=== PATIENT | female | born 1950 | race Caucasian/White ===

== ENCOUNTER 2017-03-24 09:59 | Emergency (ER) | payer MEDICARE, OTHER, SELFPAY ==
[2017-03-24 11:09] VITALS: BP 118/70; PULSE 115; RESP 20; TEMP 38.2; O2SAT 95; BMI 31.6
[2017-03-24 11:19] LABS: UTC Influenza A Antigen Positive (Negative)
[2017-03-24 11:20] LABS: UTC Influenza B Antigen Negative (Negative)
--- NOTE | 2017-03-24 11:29 | HMH.EDUTC ---
[facility] [place] Disposition Clinical Impression: Influenza Disposition: Home, Self-Care Condition on Discharge: Good Instructions: Influenza Additional Instructions: ? Start Tamiflu today if you are going to take it. Discussed risk and possible benefits. ? Lots of rest ? Increase Fluids water, Gatorade, powerade, pedialyte,if /toddler/child ? Alternate Tylenol and / or ibuprofen as discussed for fever, aches, chills x 24 hours without medication for symptoms ? Follow up IMMEDIATELY for new or worsening Symptoms OR no noticeable improvement over the next 48-72 hours, 911 for difficulty or breathing ? You or your child area contagious until no fever, aches, chills for 24 hours with medication for symptoms Prescriptions: Dextromethorphan Polistirex [Delsym] 10 mg PO Q12H PRN #200 luann.er.12h PRN Reason: Cough Oseltamivir Phosphate [Tamiflu 75mg Capsule] 75 mg PO BID #10 capsule Referrals: Sukumar Luevano MD [Primary Care Provider] - Time of Disposition: 11:32 Medical Decision Making Vital Signs: 03/24/17 11:09 Temperature 100.7 F H Temperature Source Skin Pulse Rate [Right] 115 H Respiratory Rate 20 Blood Pressure [Right Arm] 118/70 Blood Pressure Mean [Right Arm] 86 Blood Pressure Source [Right Arm] Automatic Cuff Blood Pressure Position [Right Arm] Sitting 02 Sat by Pulse Oximetry 95 Oxygen Delivery Method Room Air - Lab Data Lab Results 03/24/17 11:18: Influenza Type A Ag Positive A, Influenza Type B Ag Negative - Mervin Inquiry Pt receiving controlled substance: No Mervin was queried for this patient: No [facility] [place] HPI - General Stated complaint: cold fever headache nausea Mode of Arrival: Ambulatory Source of Information: Patient Limitations: No Limitations Description of Symptoms (Recalled from Triage Doc. by RN): COUGH, CONGESTION BEGAN WEDNESDAY HEENT Symptoms (Recalled from RN notes): Yes Resp Symptoms (Recalled from RN notes): No Skin Symptoms (Recalled from RN notes): No MS Symptoms (Recalled from RN notes): No Functional Status (Recalled from RN notes): NO - History of Present Illness Provider Complaint: Patient state that she has been having flu like symptoms for about 2-3 days that got worse this morning when she began having a fever Onset (ago): day(s) (2-3) Radiation: non-radiation Severity: mild Severity scale (1-10): 2 Relieving factors: none Exacerbating factors: none Treatments prior to arrival: NSAID - Related Data Previous Rx's Medication Instructions Recorded Dextromethorphan Polistirex 10 mg PO Q12H PRN #200 luann.er.12h 03/24/17 [Delsym] Oseltamivir Phosphate [Tamiflu 75 mg PO BID #10 cap 03/24/17 75mg Capsule] Allergies Allergy/AdvReac Type Severity Reaction Status Date / Time naproxen [From ALEVE] Allergy Severe S-DIFF. Unverified 03/09/17 14:58 BREATHING - Worker's Comp Is this a Worker's Comp case?: No [facility] History - *Social History Alcohol Intake: never - Psychiatric History Expresses thoughts of harming self/others: None Suicide Plan Description: No Plan - Constitutional Reports chills, Reports fever(s) - ENT Reports nasal discharge - Respiratory Reports cough - Musculoskeletal Reports body aches Physical Exam - General General appearance: alert, in no apparent distress - Eye Eye exam: Present: normal appearance, PERRL, EOMI - ENT ENT exam: Present: normal exam, normal oropharynx, mucous membranes moist, TM's normal bilaterally, normal external ear exam - Respiratory Respiratory exam: Present: normal lung sounds bilaterally. Absent: respiratory distress - Cardiovascular Cardiovascular exam: Present: regular rate, normal rhythm. Absent: JVD - Neurological Exam Neurological exam: Present: alert, oriented X3
--- NOTE | 2017-03-24 11:32 | ED_ITS ---
[facility] [place] Clinical Impression: Influenza Disposition: Home, Self-Care Condition on Discharge: Good Instructions: Influenza Additional Instructions: ? Start Tamiflu today if you are going to take it. Discussed risk and possible benefits. ? Lots of rest ? Increase Fluids water, Gatorade, powerade, pedialyte,if /toddler/child ? Alternate Tylenol and / or ibuprofen as discussed for fever, aches, chills x 24 hours without medication for symptoms ? Follow up IMMEDIATELY for new or worsening Symptoms OR no noticeable improvement over the next 48-72 hours, 911 for difficulty or breathing ? You or your child area contagious until no fever, aches, chills for 24 hours with medication for symptoms Prescriptions: Dextromethorphan Polistirex [Delsym] 10 mg PO Q12H PRN #200 luann.er.12h PRN Reason: Cough Oseltamivir Phosphate [Tamiflu 75mg Capsule] 75 mg PO BID #10 capsule Referrals: Sukumar Luevano MD [Primary Care Provider] - Time of Disposition: 11:32 Medical Decision Making Vital Signs: 03/24/17 11:09 Temperature 100.7 F H Temperature Source Skin Pulse Rate [Right] 115 H Respiratory Rate 20 Blood Pressure [Right Arm] 118/70 Blood Pressure Mean [Right Arm] 86 Blood Pressure Source [Right Arm] Automatic Cuff Blood Pressure Position [Right Arm] Sitting 02 Sat by Pulse Oximetry 95 Oxygen Delivery Method Room Air - Lab Data Lab Results 03/24/17 11:18: Influenza Type A Ag Positive A, Influenza Type B Ag Negative - Mervin Inquiry Pt receiving controlled substance: No Mervin was queried for this patient: No [facility] [place] - General Stated complaint: cold fever headache nausea Mode of Arrival: Ambulatory Source of Information: Patient Limitations: No Limitations Description of Symptoms (Recalled from Triage Doc. by RN): COUGH, CONGESTION BEGAN WEDNESDAY HEENT Symptoms (Recalled from RN notes): Yes Resp Symptoms (Recalled from RN notes): No Skin Symptoms (Recalled from RN notes): No MS Symptoms (Recalled from RN notes): No Functional Status (Recalled from RN notes): NO - History of Present Illness Provider Complaint: Patient state that she has been having flu like symptoms for about 2-3 days that got worse this morning when she began having a fever Onset (ago): day(s) (2-3) Radiation: non-radiation Severity: mild Severity scale (1-10): 2 Relieving factors: none Exacerbating factors: none Treatments prior to arrival: NSAID - Related Data Previous Rx's Medication Instructions Recorded Dextromethorphan Polistirex 10 mg PO Q12H PRN #200 luann.er.12h 03/24/17 [Delsym] Oseltamivir Phosphate [Tamiflu 75 mg PO BID #10 cap 03/24/17 75mg Capsule] Allergies Allergy/AdvReac Type Severity Reaction Status Date / Time naproxen [From ALEVE] Allergy Severe S-DIFF. Unverified 03/09/17 14:58 BREATHING - Worker's Comp Is this a Worker's Comp case?: No [facility] History - *Social History Alcohol Intake: never - Psychiatric History Expresses thoughts of harming self/others: None Suicide Plan Description: No Plan - Constitutional Reports chills, Reports fever(s) - ENT Reports nasal discharge - Respiratory Reports cough - Musculoskeletal Reports body aches Physical Exam - General General appearanc
== END 2017-03-24 11:44 | disposition home or self-care (01) ==
PROVIDERS: Emergency Provider Nurse Practitioner; PCP Family Medicine
DX: J11.1 Influenza due to unidentified influenza virus with other respiratory manifestations (principal)
CPT/HCPCS: 87276; 87804; 99202

== ENCOUNTER → 2017-03-31 13:46 | Outpatient (POV) | payer MEDICARE, OTHER, SELFPAY | PROVIDERS: PCP Family Medicine | DX: Z00.00 Encounter for general adult medical examination without abnormal findings (principal) ==

== ENCOUNTER 2017-04-27 08:35 | Day surgery (SDC) | payer MEDICARE, OTHER, SELFPAY ==
[2017-04-26 13:19] VITALS: BMI 30.9
[2017-04-27 08:55] VITALS: BP 152/80; PULSE 75; RESP 18; TEMP 36.7; O2SAT 97
--- NOTE | 2017-04-27 09:23 | P.PN_ITS ---
[facility] Anesthesia Checklist - Patient Identification Patient Identification: Arm Band, Verbal (Name & ) - Structural Data Admitted From: Home Planned Operative Procedure/s: cysto Consent for Planned Operative Procedure(s) Verified: Yes Verified Documents: Surgical Consent - Additional verifications Patient : No Anesthesia Reactions: No Hx Blood Transfusions: No Blood Transfusion Reaction: No Cephalosporin Allergy: No Previous Colonoscopy: No - Cardiovascular Assessment Heart Sounds: S1 & S2 Pulse Strength: Baseline Pulse Rhythm: Regular - Airway Assessment C-Spine Mobility Assessed: Yes TMJ Mobility Assessed: Yes Dentition: Dentures-good fit - Neurological Assessment Level of Consciousness: Awake, Alert, Appropriate Hx Seizures: No Numbness or tingling in extremities: No - Anesthesia Plan Anesthesia Risk discussed: Yes ASA Class: II Anesthesia Type: MAC [facility] Anesthesia HX I have reviewed the patient's past medical history: Yes Medical History: Reports:: Gastroesophageal Reflux Disease(GERD) Denies:: Cancer, Diabetes Mellitus Type 1, Diabetes Mellitus Type 2, MRSA, Seizures Other Medical History: Reports: Glaucoma. Denies: Blood Transfusion Reaction Comment: hyperthyroid Laterality Cases: Left: Total Knee Replacement Other Surgeries: Yes: Hysterectomy-Total Amputation: No Fractures: No *Family Hx:: Cancer, Diabetes, Heart Attack, Hypertension, Thyroid Disorder
[2017-04-27 10:15] VITALS: BP 128/78; PULSE 81; RESP 20; O2SAT 93
[2017-04-27 10:30] VITALS: BP 141/80; PULSE 74; RESP 20; TEMP 36.6; O2SAT 95
--- NOTE | 2017-04-27 10:36 | HMH.OPNOTE ---
Date of procedure: 04/27/17 Pre-op Diagnosis:: Urinary frequency Post-op diagnosis:: other (With urethral stenosis) Procedure performed:: Cystoscopy with urethral dilation Surgeon:: Riaz Gibbons MD SAMPLE WASHER:: Sukumar Rosado Anesthesia: MAC Estimated blood loss (mL): 0 Clinical Note:: Patient with long history of urinary frequency. He has tried numerous medical therapies without seeing improvement of symptoms. She presents for cystoscopy under anesthesia. Operative findings:: For satisfactory sedation she was placed carefully in the dorsolithotomy position and the genital area prepped and draped in standard fashion. On exam she has a grade 2-3 cystocele. External genitalia was unremarkable. The 22 Turkmen cystoscope sheath was introduced. The entire bladder was inspected with both 30 and 70? lenses she had no evidence of bladder tumors. Ureteral orifices were situated within the cystocele. Clear urine was seen from each ureteral orifice. The ureter was snug on the 22 Turkmen cystoscopy sheath. Letter was drained and cystoscope removed. The ureter was calibrated up to 30 Turkmen with the Amando sounds. Xylocaine jelly was instilled. She was awakened and transferred to the postop area in stable condition Operative note:: As above Pathology: none sent Condition: stable Disposition: same day Specimens:: None Complications:: None
--- NOTE | 2017-04-27 10:41 | P.OP_ITS ---
Date of procedure: 04/27/17 Pre-op Diagnosis:: Urinary frequency Post-op diagnosis:: other (With urethral stenosis) Procedure performed:: Cystoscopy with urethral dilation Surgeon:: Riaz Gibbons MD PLANT PRODUCTION WORKER:: Sukumar Rosado Anesthesia: MAC Estimated blood loss (mL): 0 Clinical Note:: Patient with long history of urinary frequency. He has tried numerous medical therapies without seeing improvement of symptoms. She presents for cystoscopy under anesthesia. Operative findings:: For satisfactory sedation she was placed carefully in the dorsolithotomy position and the genital area prepped and draped in standard fashion. On exam she has a grade 2-3 cystocele. External genitalia was unremarkable. The 22 Qatari cystoscope sheath was introduced. The entire bladder was inspected with both 30 and 70? lenses she had no evidence of bladder tumors. Ureteral orifices were situated within the cystocele. Clear urine was seen from each ureteral orifice. The ureter was snug on the 22 Qatari cystoscopy sheath. Letter was drained and cystoscope removed. The ureter was calibrated up to 30 Qatari with the Amando sounds. Xylocaine jelly was instilled. She was awakened and transferred to the postop area in stable condition Operative note:: As above Pathology: none sent Condition: stable Disposition: same day Specimens:: None Complications:: None
[2017-04-27 10:45] VITALS: BP 151/70; PULSE 69; RESP 20; TEMP 36.6; O2SAT 95
[2017-04-27 11:00] VITALS: BP 158/85; PULSE 68; RESP 20; TEMP 36.6; O2SAT 96
== END 2017-04-27 10:15 | disposition home or self-care (01) ==
LOC: OR 08:36
PROVIDERS: PCP Family Medicine; Visit Provider Urology
PROC: 0TJB8ZZ Inspection of Bladder, Via Natural or Artificial Opening Endoscopic (ICD-10-PCS; CPT 52000; principal; 2017-04-27 10:00)
DX: N35.9 Urethral stricture, unspecified (principal)
CPT/HCPCS: 52281; 96374

== ENCOUNTER → 2018-05-04 12:57 | Outpatient (POV) | payer MEDICARE, OTHER, SELFPAY | DX: Z00.00 Encounter for general adult medical examination without abnormal findings (principal) ==

== ENCOUNTER → 2019-02-08 14:46 | Outpatient (POV) | payer MEDICARE, OTHER, SELFPAY | DX: Z00.00 Encounter for general adult medical examination without abnormal findings (principal) ==

== ENCOUNTER → 2019-02-14 06:57 | Outpatient (CLI) | payer MEDICARE, OTHER, SELFPAY ==
--- NOTE | 2019-02-14 | CA_ITS ---
APPROVED REPORT Exam: Pharmacologic Technologist: Opal Melissa Ht: 5 ft 6 in Wt: 192 lbs BSA: 1.97 m2 HR: 61 bpm BP: 149/57 mmHg Indications: Chest pain, Shortness of Breath Medical History Medications: Losartan,,,,, FeNOfibrate,,,,, Dexilant,,,,, Sertraline,,,,, AZopt,,,,, Xalatan,,,,, CombiGan eye drops,,,,, Stress Test Details Test: LEXISCAN HR Resting HR: 67 bpm Max Heart Rate (APMHR): 153 bpm Max HR Achieved: 106 bpm Target HR (85% APMHR): 130 bpm % of APMHR: 69 Recovery HR: 80 bpm BP Resting BP: 149.0/57.0 mmHg Max BP: 161.0/61.0 mmHg Recovery BP: 136.0/51.0 mmHg ECG Clinical Exercise duration: 04:52 min Highest Stage Achieved: Stress ECG Conclusion Resting ECG: Sinus rhythm Lexiscan portion completed. Symptoms: Headache at peak infusion, resolved in recovery. Arrhythmias/Ectopy: Occasional PVC ST-T Changes: Less than 1.[address] depression. Conclusion: Images to follow. Test Summary REST . . . . . . . Resting REST 02:04 . . 67 . 149/ 57 . . Stage 1 01:00 . . 93 . . . . Stage 2 01:00 . . 106 . 148/ 60 . . Stage 3 01:00 . . 98 . 160/ 67 . . Stage 4 01:00 . . 88 . 161/ 61 . . Stage 4 01:52 . . 87 . 161/ 61 . Stop exercise at 04:52 RECOVERY 01:00 . . 91 . 158/ 65 . . RECOVERY 02:00 . . 83 . 150/ 54 . . RECOVERY 03:00 . . 82 . 136/ 51 . . RECOVERY 03:07 . . 81 . 136/ 51 . . Electronically signed by : Edouard Shannon, 02/14/2019 21:43:34
--- NOTE | 2019-02-14 06:59 | NM_ITS ---
APPROVED REPORT Exam: Nuclear Stress Test Indication: Chest pain, SOB, Syncope, Fatigue, HTN, High cholesterol, Family history Patient Location: Outpatient Stress Tech: Opal Melissa NM Tech:Daphne Tapia, ARRT, RT (R)(N) Ht: 5 ft 6 in Wt: 192 lbs Bra Size: 40DD HR: 61 bpm BP: 149/57 mmHg BSA: 1.97 m2 BMI: 30.9 History: Chest pain, SOB, Syncope, Fatigue, HTN, High cholesterol, Family history Procedure: Patient received a 0.4 mg of intravenous Lexiscan, resting heart rate 61 bpm, resting blood pressure 149/57 mmHg, with Lexiscan maximum heart rate achived was 106 bpm which is Less than 85 % of the maximum predicted heart rate and blood pressure was 160/67 mmHg. With Lexiscan, patient denied any complaint of chest pain. Electrocardiogram Resting electrocardiogram showed sinus rhythm, with Lexiscan there is less than 1.[address] segment depression noted from the baseline EKG. The EKG portion of the Lexiscan Myoview is nondiagnostic. Cardiac Stress and Resting SPECT Images: Cardiac Stress and Resting SPECT images were obtained using technetium 99m Myoview 31.6 mCi stress and 10.92 mCi at rest. Gated SPECT with analysis of segmental wall motion and calculation of the ejection fraction also done. Cardiac stress and resting SPECT images show uniform myocardial activity without segmental perfusion abnormality, computer derived ejection fraction is over 65% with no regional wall motion abnormality, right ventricle is normal size and contractility. Conclusion: 1. The EKG portion of the Lexiscan Myoview is nondiagnostic. 2. No scintigraphic evidence of reversible ischemia seen, computer derived ejection fraction is over 65% with no regional wall motion abnormality, right ventricle is normal size and contractility. 3. Normal Lexiscan Myoview study. Electronically signed by : Edouard Shannon, 02/14/2019 21:45:24
--- NOTE | 2019-02-14 06:59 | CA_ITS ---
APPROVED REPORT Jewelry Department Supervisor: Chen Gates RVT Study Quality: Adequate Indications: htn Risk Factors Hypertension Hyperlipidemia Smoking Renal Artery Doppler Proximal (R) 218.5/ cm/sec Mid (R) 169.0/ cm/sec Distal (R) 140.6/ cm/sec Renal Aorta Ratio (R) 1.54 Segmental A. (R) 62.8/16.9 cm/sec RI: 0.73 Segmental A. Sup (R) 62.8/16.9 cm/sec Segmental A. Mid (R) 54.4/24.4 cm/sec Segmental A. Inf (R) 46.0/9.4 cm/sec Proximal (L) 105.7/ cm/sec Mid (L) 138.5/ cm/sec Distal (L) 113.1/ cm/sec Renal Aorta Ratio (L) 0.97 Segmental A. (L) 98.8/25.4 cm/sec RI: 0.74 Segmental A. Sup (L) 94.3/29.9 cm/sec Segmental A. Mid (L) 98.8/25.4 cm/sec Segmental A. Inf (L) 70.0/16.2 cm/sec Renal Measurements Kidney Size (R) 11.9x5.7 cm Cortical Thickness (R) 1.4 cm Kidney Size (L) 12.3x5.4 cm Cortical Thickness (L) 1.4 cm Findings S Conclusion Study suggests less than 60% stenosis of the right renal artery. Study suggests normal left renal artery. Electronically signed by : Gavin Enrique MD 02/15/2019 14:35:49
--- NOTE | 2019-02-14 06:59 | CA_ITS ---
APPROVED REPORT EXAM: Comprehensive 2D, Doppler, and color-flow Echocardiogram Parachutist/Combatant Diver Qualified: Chelle Angulo CRT Ht: 5 ft 6 in Wt: 192lbs BSA: 1.97 BP: 170/80 mmHg Indications: CP. PALP, FATIGUE, HTN, SOB, OBESITY, HLD, GERD 2D Dimensions LVOT 1.82 cm (M/F) 1.5-2.5 M-Mode Dimensions RVDd 2.20 cm (0.9-2.6) LVDd 4.35 cm (3.5-5.7) LVDs 2.99 cm (3.5-5.7) IVSd 1.25 cm (0.6-1.1) PWd 0.81 cm (0.6-1.1) EF (Teich) 59.40% FS 31.30% EDV (Teich) 85.40 mL ESV (Teich) 34.70 mL LV Diastology E/A Ratio 0.69 Mitral Valve MV A Velocity 93.00 (40-130 cm/s) Left Ventricle Left atrium is mildly enlarged, left ventricle is normal size, mild concentric left ventricular hypertrophy, visually estimated ejection fraction 55% with no regional wall motion abnormality, grade 1 diastolic dysfunction seen without tissue Doppler evidence of raise left atrial pressure. Right Ventricle Right atrium and right ventricle mildly enlarged with normal contractility. Aortic Valve Aortic valve is minimally thickened and fibrosed. There is no aortic stenosis aortic insufficiency. Mitral Valve Mitral valve is grossly normal, there is mild mitral regurgitation. Tricuspid Valve Tricuspid valve is grossly normal, there is mild tricuspid regurgitation. Calculated right ventricular systolic pressure is 46 mmHg which is consistent with moderately elevated right ventricular systolic pressure. Pulmonic Valve Pulmonic valve is poorly visualized. Great Vessels Aortic root is normal size. Pericardium No significant pericardial effusion noted. Conclusion 1. Mild biatrial enlargement, normal left ventricular size, mild concentric left ventricular hypertrophy, visually estimated ejection fraction 55% with no regional wall motion abnormality, grade 1 diastolic dysfunction seen without tissue Doppler evidence of raise left atrial pressure. 2. Mildly enlarged right ventricle with normal contractility. 3. Mild mitral and tricuspid regurgitation, calculated right ventricular systolic pressure is 46 mmHg consistent with moderately elevated right ventricular systolic pressure. 4. No significant pericardial effusion noted. Electronically signed by : Edouard Shannon, 02/14/2019 21:59:55
--- NOTE | 2019-02-14 07:22 | HMH.ITSHM ---
Current Home Medications as stated by this patient Lee Ann Coates or corporate sales representative. []SERTRALINE LOSARTAN FENOFIBRATE XALATAN DEXILANT AZOPT COMBIGAN EYE DROPS
== END ==
PROVIDERS: PCP Nurse Practitioner Family; Visit Provider Urology
DX: I10 Essential (primary) hypertension (principal); R00.2 Palpitations; R06.09 Other forms of dyspnea; R07.9 Chest pain, unspecified; R42 Dizziness and giddiness
CPT/HCPCS: 78452; 93017; 93306; 93976; A9502; J2785

== ENCOUNTER → 2019-03-01 11:28 | Outpatient (CLI) | payer MEDICARE, OTHER, SELFPAY ==
[2019-03-01 12:16] LABS: Basophils % 0.5 % (0.1-2.0); Eosinophils # 0.2 K/mm3 (0.0-0.4); Eosinophils % 2.2 % (0.1-12.0); Hemoglobin 13.7 g/dL (12.2-16.2); Lymphocytes # 2.8 K/mm3 (0.7-4.5); Lymphocytes % 40.5 % (10-50); Mean Corpuscular HGB Conc 31.1 g/dL (31.8-35.4); Mean Corpuscular Hemoglobin 26.8 pg (27.0-31.2); Mean Corpuscular Volume 86.3 fl (81-99); Mean Platelet Volume 9.4 fl (7.4-10.4); Monocytes # 0.4 K/mm3 (0.1-1.0); Monocytes % 6.3 % (1.7-9.3); Neutrophils # 3.4 K/mm3 (1.8-7.8); Neutrophils % 50.5 % (37.0-80.0); Platelet Count 335 K/mm3 (142-424); Red Cell Distribution Width 14.6 % (11.5-17.5); White Blood Count 6.8 K/mm3 (4.8-10.8)
[2019-03-01 13:19] LABS: Anion Gap 14.9 mEq/L (5-15); Blood Urea Nitrogen 15 mg/dL (7-18); Calcium 9.8 mg/dL (8.5-10.1); Carbon Dioxide 26 mmol/L (21.0-32.0); Chloride 104 mmol/L (98-107); Creatinine,Serum 0.79 mg/dL (0.55-1.02); Estimated Glomerular Filt Rate 73 ml/min (>60); GFR (African American) 88 ML/MIN (>60); Glucose 102 mg/dL (74-106); Potassium 4.9 mmoL/L (3.5-5.1); Sodium 140 mmol/L (136-145)
== END ==
PROVIDERS: Visit Provider Urology
DX: I10 Essential (primary) hypertension (principal); R00.2 Palpitations; R06.09 Other forms of dyspnea; R07.9 Chest pain, unspecified; R42 Dizziness and giddiness
CPT/HCPCS: 36415; 80048; 85025

== ENCOUNTER → 2019-03-17 10:35 | Outpatient (CLI) | payer MEDICARE, OTHER, SELFPAY ==
[2019-03-17 12:09] LABS: Anion Gap 15.3 mEq/L (5-15); Blood Urea Nitrogen 15 mg/dL (7-18); Calcium 9.6 mg/dL (8.5-10.1); Carbon Dioxide 26 mmol/L (21.0-32.0); Chloride 103 mmol/L (98-107); Creatinine,Serum 0.68 mg/dL (0.55-1.02); Estimated Glomerular Filt Rate 86 ml/min (>60); GFR (African American) 104 ML/MIN (>60); Glucose 93 mg/dL (74-106); Potassium 4.3 mmoL/L (3.5-5.1); Sodium 140 mmol/L (136-145)
== END ==
PROVIDERS: Visit Provider Physician Assistant
DX: I10 Essential (primary) hypertension (principal); R00.2 Palpitations; R06.09 Other forms of dyspnea; R07.9 Chest pain, unspecified
CPT/HCPCS: 36415; 80048

== ENCOUNTER → 2019-07-21 09:00 | Outpatient (CLI) | payer MEDICARE, OTHER, SELFPAY ==
--- NOTE | 2019-07-21 | CA_ITS ---
APPROVED REPORT Bilateral Lower Extremity Venous Study for DVT. Arson And Bomb Investigator: GILBERT Indications Lower Extremity Pain: Bilateral Lower Extremity Edema: Bilateral Hyperlipidemia, HTN Risk Factors Patient denies trauma. States her legs have been swelling and painful for a while. Vein Imaging CFV (R): compressive, spontaneous, phasic, augmentation FEM (R): compressive, spontaneous, phasic, augmentation POP (R): compressive, spontaneous, phasic, augmentation PTV (R): Compressible GSV (R): compressive, spontaneous, phasic, augmentation SSV (R): Compressible Peroneals (R):Compressible GAS (R): Compressible CFV (L): compressive, spontaneous, phasic, augmentation FEM (L): compressive, spontaneous, phasic, augmentation POP (L): compressive, spontaneous, phasic, augmentation PTV (L): Compressible GSV (L): compressive, spontaneous, phasic, augmentation SSV (L): Compressible Peroneals (L):Compressible GAS (L): Compressible Conclusion No evidence of DVT or superficial thrombophlebitis in the veins scanned of the right lower extremity. No evidence of DVT or superficial thrombophlebitis in the veins scanned of the left lower extremity. Electronically signed by : Gavin Enrique MD 07/21/2019 17:09:56
--- NOTE | 2019-07-21 09:50 | MR_ITS ---
PROCEDURE: MR HEAD/BRAIN WO CON CLINICAL INDICATION: FREQUENT HEADACHES, MEMORY LOSS Severe headache, memory loss COMPARISON: No exams were available for comparison TECHNIQUE: Routine multiplanar multi echo sequences are performed without gadolinium enhancement. FINDINGS: No midline shift, mass effect, intracranial hemorrhage, or hydrocephalus is evident. The cerebellopontine angles, cerebellum, and brainstem are unremarkable. There are scattered periventricular and subcortical T2 white matter hyperintensities which are nonspecific. No evidence of acute infarction. There is a partial empty sella as a normal variant. The optic chiasm, corpus callosum, and craniocervical junction have an unremarkable appearance. No mastoid effusion or sinus air-fluid level. IMPRESSION: 1. No acute intracranial findings. 2. Scattered periventricular and subcortical T2 white matter hyperintensities which may be related to ischemic gliotic change from microvascular disease. Differential diagnosis includes migraine headache or demyelinating process. Dictated by: Gavin Enrique MD 07/22/2019 11:39 Electronically signed by Gavin Enrique MD in [place] 07/22/2019 11:39
== END ==
PROVIDERS: PCP Nurse Practitioner Family; Visit Provider Nurse Practitioner Family
DX: I83.893 Varicose veins of bilateral lower extremities with other complications (principal); R51 Headache; R41.3 Other amnesia
CPT/HCPCS: 70551; 93970

== ENCOUNTER → 2019-09-11 10:20 | Outpatient (CLI) | payer MEDICARE, OTHER, SELFPAY ==
[2019-09-11 14:18] LABS: Coronavirus 19 IgG Antibody Negative (Negative); Coronavirus 19 IgM Antibody Negative (Negative)
== END ==
PROVIDERS: Visit Provider Surgery
DX: Z01.818 Encounter for other preprocedural examination (principal)
CPT/HCPCS: 36415; 86328

== ENCOUNTER 2019-09-12 06:31 | Day surgery (SDC) | payer MEDICARE, OTHER, SELFPAY ==
[2019-09-11 07:37] VITALS: BMI 31.9
[2019-09-12 07:04] VITALS: BP 133/70; PULSE 66; RESP 20; TEMP 36.2; O2SAT 95
--- NOTE | 2019-09-12 07:14 | SUR.PREOP ---
scope patch order by Kevin PRISON WARDEN applied behind right ear
--- NOTE | 2019-09-12 07:15 | P.PN_ITS ---
[facility] Anesthesia Checklist - Patient Identification Patient Identification: Arm Band, Verbal (Name & ) - Structural Data Admitted From: Home Planned Operative Procedure/s: egd Consent for Planned Operative Procedure(s) Verified: Yes Verified Documents: History and Physical - NPO Status Verified Time NPO: 00:00 - Chart Verification Results Verified: CBC, BMP - Additional verifications Patient : No Anesthesia Reactions: No Hx Blood Transfusions: No Blood Transfusion Reaction: No Cephalosporin Allergy: No Previous Colonoscopy: Yes - Cardiovascular Assessment Heart Sounds: S1 & S2 Pulse Strength: Baseline Pulse Rhythm: Regular Peripheral Edema: No - Airway Assessment C-Spine Mobility Assessed: Yes TMJ Mobility Assessed: Yes Dentition: Partials - Neurological Assessment Level of Consciousness: Awake, Alert, Appropriate Hx Seizures: No Numbness or tingling in extremities: No - Anesthesia Plan Anesthesia Risk discussed: Yes Anesthesia Plan: Verified ASA Class: II Anesthesia Type: MAC [facility] History I have reviewed the patient's past medical history: Yes Medical History: Reports:: Cancer (skin cancer), Gastroesophageal Reflux Disease(GERD), Hyperlipidemia, Hypertension, Palpitations Denies:: Diabetes Mellitus Type 1, Diabetes Mellitus Type 2, Internal Pacemaker, MRSA, Seizures *Have you ever received a pneumonia vaccine?: Yes *Have you received a flu vaccine this season?: Yes Other Medical History: Reports: Glaucoma. Denies: Blood Transfusion Reaction Anesthesia experience/problems:: none Laterality Cases: Left: Arthroscopy Knee, Total Knee Replacement, Bilateral: Other Other Surgeries: Yes: Colonoscopy, EGD, Hysterectomy-Total, Hysterectomy- Partial, Other. No: Pacemaker Amputation: No Fractures: No - *Social History Educational Level: Completed GED/General Educational Development Smoking Status: Former smoker Alcohol Intake: never Alcohol Intake Frequency:: other Substance Use Type: denies use *Occupational Status:: retired Housing: house Household Members: spouse *Travel in the last 8 weeks: None Family Hx:: Cancer, Coronary Artery Disease, Diabetes, Heart Attack, Hyperlipidemia, Hypertension, Stroke, Substance abuse, Alcoholism
[2019-09-12 07:30] VITALS: O2SAT 97
--- NOTE | 2019-09-12 07:52 | HMH.SCOPE ---
- Procedure: Date: 09/12/19 Procedure Performed:: Esophagogastroduodenoscopy with polypectomy by hot snare Indications:: Patient is a 69-year-old female. She has had numerous EGDs over many years. Interestingly she has had large polypoid lesion in the prepyloric location which have been removed and repeatedly revealed merely hyperplastic polyp interestingly. She has developed symptoms of gastric outlet obstruction and repeated EGDs have revealed recurrent polyps. She actually had been followed at some point by gastroenterology in [place]. It was felt that resection would not be optimal as she could develop recurrent polyps elsewhere which may be less easily accessible. Plan was for surveillance EGD to remove polyp prior to gastric outlet obstruction development. Performing Provider:: Isaac Golden MD Referring Provider:: None Sedation:: Propofol Procedure:: Patient was taken to endoscopy procedure room. She was positioned in a lateral decubitus position. Adequate intravenous sedation was achieved with anesthesia titration of propofol. Olympus endoscope was inserted via the oropharynx and advanced to the gastric lumen which was insufflated. In the prepyloric location there were 2 moderately large polypoid lesions noted. These were removed with hot cutting snare. This required retrieval using a Callaway net. Endoscope was reinserted. There was a smaller polypoid lesion in the prepyloric location which was removed with hot cutting snare and treated by suctioning. There was some irregular mucosa in the antrum. The endoscope was able to be advanced into the duodenum which appeared unremarkable. Endoscope was withdrawn. Findings:: Several large polypoid lesions in the prepyloric location with some irregular mucosa as well. Recommendations:: I will follow-up on histopathology. If benign may consider repeat EGD in 6 to 12 months. Complications:: None immediately apparent Estimated blood obtained (mL): 2
[2019-09-12 07:54] VITALS: BP 130/82; PULSE 75; RESP 16; TEMP 36.1; O2SAT 95
[2019-09-12 08:04] VITALS: BP 126/77; PULSE 77; RESP 16; TEMP 36.1; O2SAT 97
[2019-09-12 08:14] VITALS: BP 149/82; PULSE 66; RESP 18; TEMP 36.1; O2SAT 97
[2019-09-12 08:24] VITALS: BP 140/86; PULSE 70; RESP 16; TEMP 36.1; O2SAT 98
== END 2019-09-12 08:24 | disposition home or self-care (01) ==
LOC: OUTP 06:32
PROVIDERS: PCP Nurse Practitioner Family; Visit Provider Surgery
PROC: 0DJ08ZZ Inspection of Upper Intestinal Tract, Via Natural or Artificial Opening Endoscopic (ICD-10-PCS; CPT 43235; principal; 2019-09-12 07:30)
DX: K31.7 Polyp of stomach and duodenum (principal); Z87.19 Personal history of other diseases of the digestive system; Z85.828 Personal history of other malignant neoplasm of skin; K21.9 Gastro-esophageal reflux disease without esophagitis; I10 Essential (primary) hypertension; E78.5 Hyperlipidemia, unspecified; R00.2 Palpitations; Z96.653 Presence of artificial knee joint, bilateral; Z90.710 Acquired absence of both cervix and uterus; Z79.899 Other long term (current) drug therapy; Z82.3 Family history of stroke; Z82.49 Family history of ischemic heart disease and other diseases of the circulatory system; Z81.1 Family history of alcohol abuse and dependence
CPT/HCPCS: 43251; 88305; J2704

== ENCOUNTER → 2019-11-16 16:49 | Outpatient (CLI) | payer MEDICARE, OTHER, SELFPAY ==
[2019-11-18 18:31] LABS: Covid-19 Nasal PCR Sendout Lex Not Detected
== END ==
PROVIDERS: PCP Nurse Practitioner Family; Visit Provider Nurse Practitioner
DX: Z03.818 Encounter for observation for suspected exposure to other biological agents ruled out (principal)
CPT/HCPCS: U0004

== ENCOUNTER → 2019-12-07 12:40 | Outpatient (CLI) | payer MEDICARE, OTHER, SELFPAY ==
[2019-12-07 13:14] LABS: Basophils % 0.5 % (0.1-2.0); Eosinophils # 0.2 K/mm3 (0.0-0.4); Eosinophils % 2.7 % (0.1-12.0); Hematocrit 42.7 % (37.0-47.0); Hemoglobin 14.2 g/dL (12.2-16.2); Lymphocytes # 2.7 K/mm3 (0.7-4.5); Lymphocytes % 37.4 % (10-50); Mean Corpuscular HGB Conc 33.4 g/dL (31.8-35.4); Mean Corpuscular Hemoglobin 28.3 pg (27.0-31.2); Mean Corpuscular Volume 84.8 fl (81-99); Mean Platelet Volume 9.1 fl (7.4-10.4); Monocytes # 0.5 K/mm3 (0.1-1.0); Monocytes % 6.7 % (1.7-9.3); Neutrophils # 3.8 K/mm3 (1.8-7.8); Neutrophils % 52.7 % (37.0-80.0); Platelet Count 303 K/mm3 (142-424); Red Blood Count 5.03 M/mm3 (4.20-5.40); Red Cell Distribution Width 14.8 % (11.5-17.5); White Blood Count 7.2 K/mm3 (4.8-10.8)
[2019-12-07 14:56] LABS: Chloride 107 mmol/L (98-107); Sodium 140 mmol/L (136-145)
[2019-12-07 14:57] LABS: Potassium 4.7 mmoL/L (3.5-5.1)
[2019-12-07 15:00] LABS: Anion Gap 15.7 mEq/L (5-15); Blood Urea Nitrogen 23 mg/dl (7-17); Carbon Dioxide 22 mmol/L (22.0-30.0); Estimated Glomerular Filt Rate 62 ml/min (>60); GFR (African American) 75 ML/MIN (>60); Glucose 108 mg/dl (74-100)
[2019-12-07 15:16] LABS: Triiodothryronine (T3) Uptake 28 % (23.5-40.5)
[2019-12-07 15:18] LABS: Free Thyroxine Index 1.8 ug/dL (5.93-13.13); T4 (Thyroxine) 6.5 ug/dl (5.53-11.0)
[2019-12-07 15:31] LABS: Thyroid Stimulating Hormone 3.14 uIU/mL (0.465-4.68)
== END ==
PROVIDERS: Visit Provider Nurse Practitioner Family
DX: E78.2 Mixed hyperlipidemia (principal); I10 Essential (primary) hypertension; R06.00 Dyspnea, unspecified; R40.0 Somnolence
CPT/HCPCS: 36415; 80048; 84436; 84443; 84479; 85025

== ENCOUNTER → 2019-12-18 12:50 | Outpatient (CLI) | payer MEDICARE, OTHER, SELFPAY | PROVIDERS: PCP Nurse Practitioner Family; Visit Provider Nurse Practitioner Family | DX: R06.83 Snoring (principal); R40.0 Somnolence; G47.33 Obstructive sleep apnea (adult) (pediatric) | CPT/HCPCS: G0399 ==

== ENCOUNTER 2020-01-05 13:04 | Emergency (ER) | payer MEDICARE, OTHER, SELFPAY ==
[2020-01-05 13:06] VITALS: BP 136/76; PULSE 68; RESP 20; TEMP 36.6; O2SAT 99; BMI 31.9
--- NOTE | 2020-01-05 13:52 | HMH.EDUTC ---
[facility] [place] Clinical Impression: Bronchitis Disposition: Home, Self-Care Condition on Discharge: Good Instructions: DI for Acute Bronchitis Prescriptions: predniSONE [Prednisone 20mg Tab] 20 mg PO BID 5 Days #10 tab Transmission Status: Pending to [facility] Azithromycin [Z-Odell 250mg Tab] 250 mg PO DIRECTED #6 tab Transmission Status: Pending to [facility] Referrals: Gricelda Amaya APRN [Primary Care Provider] - Time of Disposition: 13:56 Medical Decision Making - Mervin Inquiry Pt receiving controlled substance: No Vital Signs: 01/05/20 13:06 Temperature 97.8 F Temperature Source Oral Pulse Rate [Left Radial] 68 Respiratory Rate 20 Blood Pressure [Right Arm] 136/76 Blood Pressure Mean [Right Arm] 96 Blood Pressure Source [Right Arm] Automatic Cuff Blood Pressure Position [Right Arm] Sitting 02 Sat by Pulse Oximetry 99 Oxygen Delivery Method Room Air [facility] [place] H[place] - General Stated complaint: cough weezing Time Seen by Provider: 01/05/20 13:52 Mode of Arrival: Ambulatory Source of Information: Patient Limitations: No Limitations Description of Symptoms (Recalled from Triage Doc. by RN): c/o coughing and sneezing for 2 weeks HEENT Symptoms (Recalled from RN notes): Yes Resp Symptoms (Recalled from RN notes): No Skin Symptoms (Recalled from RN notes): No MS Symptoms (Recalled from RN notes): No Functional Status (Recalled from RN notes): wnl - History of Present Illness Provider Complaint: Cough, congestion, wheezing X 3 weeks. States she gets this every year and thought it would just go away. No fever. Ears feel full and itchy. Nose is runny. Some drainage in throat. Productive cough. No vomiting or diarrhea. Onset (ago): week(s) (3) Location: chest Relieving factors: none Exacerbating factors: none Associated symptoms: cough Treatments prior to arrival: none - Related Data Home Medications Medication Instructions Recorded Confirmed Brimonidine Tartrate/Timolol 1 drp EYE-BOTH BID 04/26/17 01/05/20 [Combigan 0.2%-0.5% Eye Drops] Brinzolamide [Azopt] 10 ml OP TID 04/26/17 01/05/20 Latanoprost [Xalatan] 2.5 ml OP DAILY 04/26/17 01/05/20 fenofibrate micronized 134 mg 134 mg PO DAILY 02/07/19 01/05/20 capsule hydroxyzine HCl 25 mg tablet 25 mg PO DAILY tab 05/31/19 01/05/20 pantoprazole 40 mg tablet,delayed 40 mg PO DAILY tab 05/31/19 01/05/20 release hydroCHLOROthiazide 12.5 mg PO DAILY 09/11/19 01/05/20 [Hydrochlorothiazide 12.5mg Tab] sertraline 50 mg tablet 50 mg PO DAILY tab 12/06/19 01/05/20 Dexlansoprazole [Dexilant] 60 mg PO DAILY 01/05/20 01/05/20 Losartan/Hydrochlorothiazide 1 each PO DAILY 01/05/20 01/05/20 [Losartan-Hctz 50-12.5 mg Tab] Previous Rx's Medication Instructions Recorded losartan 50 mg tablet 50 mg PO DAILY #90 tab 12/06/19 Azithromycin [Z-Odell 250mg Tab] 250 mg PO DIRECTED #6 tab 01/05/20 predniSONE [Prednisone 20mg 20 mg PO BID 5 Days #10 tab 01/05/20 Tab] Allergies Allergy/AdvReac Type Severity Reaction Status Date / Time naproxen [From ALEVE] Allergy Severe S-DIFF. Verified 12/06/19 10:19 BREATHING - Worker's Comp Is this a Worker's Comp case?: No [facility] History - Hepatitis A Screen Drug use history?: No High risk sexual behaviors?: No History of sexually transmitted infection?: No Currently employed?: No Childcare worker?: No Do you have indoor plumbing?: Yes Do you have electricity?: Yes Attestation statement:: This patient has been screened for Hepatitis A risk factors. Medical History: Reports:: Cancer, Gastroesophageal Reflux Disease(GERD), Hyperlipidemia, Hypertension, Palpitations Denies:: Diabetes Mellitus Type 1, Diabetes Mellitus Type 2, Internal Pacemaker, MRSA, Seizures Other Medical History: Reports: Glaucoma. Denies: Blood Transfusion Reaction Comment: hyperthyroid Laterality Cases: Left: Arthroscopy Knee, Bilateral: Other Other Surgeries: Yes: Colono
[2020-01-05 14:09] VITALS: BP 132/70; PULSE 70; RESP 16; TEMP 36.8; O2SAT 98
== END 2020-01-05 14:12 | disposition home or self-care (01) ==
PROVIDERS: Emergency Provider Physician Assistant; PCP Nurse Practitioner Family
DX: J20.9 Acute bronchitis, unspecified (principal); I10 Essential (primary) hypertension; K21.9 Gastro-esophageal reflux disease without esophagitis; E78.5 Hyperlipidemia, unspecified; Z90.710 Acquired absence of both cervix and uterus; Z87.891 Personal history of nicotine dependence; Z79.899 Other long term (current) drug therapy
CPT/HCPCS: G0463; 90471; 99201

== ENCOUNTER → 2020-03-20 13:31 | Outpatient (CLI) | payer MEDICARE, OTHER, SELFPAY ==
[2020-03-20 18:21] LABS: Ferritin 160 ng/ml (11.1-264)
== END ==
PROVIDERS: Visit Provider Specialist
DX: R00.1 Bradycardia, unspecified (principal)
CPT/HCPCS: 36415; 82728

== ENCOUNTER → 2020-04-01 12:13 | Outpatient (CLI) | payer MEDICARE, OTHER, SELFPAY ==
[2020-04-01 14:04] LABS: Coronavirus 19 IgG Antibody Negative (Negative); Coronavirus 19 IgM Antibody Positive (Negative)
== END ==
PROVIDERS: Visit Provider Surgery
DX: Z01.812 Encounter for preprocedural laboratory examination (principal); Z86.16 Personal history of COVID-19; Z13.810 Encounter for screening for upper gastrointestinal disorder
CPT/HCPCS: 36415; 86328

== ENCOUNTER → 2020-04-02 08:29 | Outpatient (CLI) | payer MEDICARE, OTHER, SELFPAY ==
[2020-04-03 09:02] LABS: Covid-19 Nasal PCR Sendout P&C NEGATIVE
== END ==
PROVIDERS: PCP Nurse Practitioner Family; Visit Provider Surgery
DX: Z11.52 Encounter for screening for COVID-19 (principal)
CPT/HCPCS: U0004

== ENCOUNTER → 2020-04-10 13:11 | Outpatient (POV) | payer MEDICARE, OTHER, SELFPAY | DX: Z00.00 Encounter for general adult medical examination without abnormal findings (principal) ==

== ENCOUNTER → 2020-04-22 11:09 | Outpatient (CLI) | payer MEDICARE, OTHER, SELFPAY ==
[2020-04-22 12:53] LABS: Coronavirus 19 IgG Antibody Negative (Negative)
[2020-04-22 12:54] LABS: Coronavirus 19 IgM Antibody Positive (Negative)
== END ==
LOC: LAB 11:10 → COVID.OUT 13:37
PROVIDERS: PCP Nurse Practitioner Family; Visit Provider Surgery
DX: Z01.812 Encounter for preprocedural laboratory examination (principal); Z20.822 Contact with and (suspected) exposure to COVID-19; Z86.16 Personal history of COVID-19; Z13.810 Encounter for screening for upper gastrointestinal disorder
CPT/HCPCS: 36415; 86328; U0003

== ENCOUNTER 2020-04-23 06:18 | Day surgery (SDC) | payer MEDICARE, OTHER, SELFPAY ==
[2020-04-23 06:41] VITALS: BP 136/72; PULSE 62; RESP 18; TEMP 36.1; O2SAT 98
[2020-04-23 07:23] VITALS: O2SAT 98
[2020-04-23 07:45] VITALS: BP 97/49; PULSE 59; RESP 12; TEMP 36.3; O2SAT 92
--- NOTE | 2020-04-23 07:46 | HMH.SCOPE ---
- Procedure: Date: 04/23/20 Patient Date of :: 1950 Procedure Performed:: Esophagogastroduodenoscopy with polypectomy and biopsy Indications:: Patient is a 69-year-old female. She has had numerous EGDs over many years. Interestingly she has had large polypoid lesion in the prepyloric location which have been removed and repeatedly revealed merely hyperplastic polyp interestingly. She has developed symptoms of gastric outlet obstruction and repeated EGDs have revealed recurrent polyps. She actually had been followed at some point by gastroenterology in [place]. It was felt that resection would not be optimal as she could develop recurrent polyps elsewhere which may be less easily accessible. She underwent upper endoscopy on 09/12/2019. She did have recurrent prepyloric polyp. Once again this was removed and returned as hyperplastic polyp. Tentative plan was for 6-month follow-up EGD due to the recurrent nature. She does feel like at this point she may be developing some recurrent symptoms. Performing Provider:: Isaac Golden MD Referring Provider:: None Sedation:: MAC sedation Procedure:: Patient was taken to endoscopy procedure room. She was positioned in a lateral decubitus position. Adequate intravenous sedation was achieved with anesthesia titration of propofol. Olympus endoscope was inserted via the oropharynx advanced through the esophagus. At the gastroesophageal junction there was possibly findings consistent with Patricia's esophagus. Stomach was cannulated and insufflated. Retroflexion revealed a moderate sliding hiatal hernia. In the prepyloric location there were at least 2 moderately large, greater than 1 cm, polypoid lesions. These were removed using hot snare. They were retrieved individually using the Callaway net and sent as gastric polyps. There was likely some residual polypoid type tissue present but this was not removed due to potential for injury or perforation. Endoscope was withdrawn into the distal esophagus and several cold biopsies were obtained. Endoscope was withdrawn. Findings:: Moderate to moderately large sliding hiatal hernia Moderately large prepyloric polypoid lesions Distal esophagitis Recommendations:: She was returned to the office for follow-up to the pathology results. Likely repeat upper endoscopy in 6 months. Complications:: None immediately apparent Estimated blood obtained (mL): 5
[2020-04-23 07:55] VITALS: BP 109/57; PULSE 60; RESP 16; O2SAT 95
[2020-04-23 08:05] VITALS: BP 112/55; PULSE 57; RESP 16; O2SAT 96
[2020-04-23 08:15] VITALS: BP 129/69; PULSE 64; RESP 16; TEMP 36.3; O2SAT 96
== END 2020-04-23 08:22 | disposition home or self-care (01) ==
LOC: OUTP 06:19
PROVIDERS: PCP Nurse Practitioner Family; Visit Provider Surgery
PROC: 0DJ08ZZ Inspection of Upper Intestinal Tract, Via Natural or Artificial Opening Endoscopic (ICD-10-PCS; CPT 43235; principal; 2020-04-23 07:30)
DX: K31.7 Polyp of stomach and duodenum (principal); K44.9 Diaphragmatic hernia without obstruction or gangrene; Z87.19 Personal history of other diseases of the digestive system; K20.90 Esophagitis, unspecified without bleeding; K22.70 Barrett's esophagus without dysplasia; Z79.899 Other long term (current) drug therapy; Z88.6 Allergy status to analgesic agent; Z85.9 Personal history of malignant neoplasm, unspecified; I10 Essential (primary) hypertension; E78.5 Hyperlipidemia, unspecified; R00.2 Palpitations; F41.9 Anxiety disorder, unspecified
CPT/HCPCS: 43250; 88305

== ENCOUNTER → 2020-05-20 14:48 | Outpatient (CLI) | payer MEDICARE, OTHER, SELFPAY ==
[2020-05-20 17:04] LABS: Alanine Aminotransferase 31 U/L (12-78); Albumin Level 4.7 g/dl (3.5-5.0); Alkaline Phosphatase 42 U/L (38-126); Aspartate Amino Transferase 35 U/L (14-36); Bilirubin,Indirect 0.4 mg/dL (0.0-0.9); Bilirubin,Total 0.4 mg/dl (0.2-1.3); Bilirubin,Unconjugated 0.3 mg/dL (0.0-1.1); Chol/HDL Ratio 6.7 (1-3.5); Cholesterol 293 mg/dl (140-200); HDL Cholesterol 44 mg/dl (40-60); Total Protein,Serum 7.6 g/dl (6.3-8.2); Triglycerides 331 mg/dl (30-150); VLDL Cholesterol 66 mg/dL (0-40)
[2020-05-20 17:16] LABS: Direct LDL Cholesterol 196.53 mg/dL (100-129)
== END ==
PROVIDERS: Visit Provider Physician Assistant
DX: E78.2 Mixed hyperlipidemia (principal)
CPT/HCPCS: 36415; 80061; 80076

== ENCOUNTER → 2020-05-23 11:11 | Outpatient (CLI) | payer MEDICARE, OTHER, SELFPAY | PROVIDERS: PCP Nurse Practitioner Family | DX: Z20.822 Contact with and (suspected) exposure to COVID-19 (principal) | CPT/HCPCS: U0003 ==

== ENCOUNTER → 2020-05-29 13:00 | Outpatient (POV) | payer MEDICARE, OTHER, SELFPAY | DX: Z00.00 Encounter for general adult medical examination without abnormal findings (principal) ==

== ENCOUNTER → 2020-06-04 10:38 | Outpatient (CLI) | payer MEDICARE, OTHER, SELFPAY ==
[2020-06-04 11:41] LABS: C-Reactive Protein 1.8 mg/L (0-4)
[2020-06-04 12:08] LABS: Thyroid Stimulating Hormone 2.89 uIU/mL (0.465-4.68)
[2020-06-04 12:43] LABS: Vitamin B12 879 pg/mL (239-931)
[2020-06-04 12:44] LABS: Folate > 20.00 ng/mL
[2020-06-04 12:56] LABS: Erythrocyte Sedimentation Rate 10 mm/hr (0-30)
== END ==
PROVIDERS: Visit Provider Specialist
DX: G89.29 Other chronic pain (principal); R51.9 Headache, unspecified; R41.3 Other amnesia
CPT/HCPCS: 36415; 82607; 82746; 84443; 85651; 86140

== ENCOUNTER → 2020-06-12 14:12 | Outpatient (POV) | payer MEDICARE, OTHER, SELFPAY | DX: Z00.00 Encounter for general adult medical examination without abnormal findings (principal) ==

== ENCOUNTER → 2020-06-19 14:09 | Outpatient (CLI) | payer MEDICARE, OTHER, SELFPAY ==
[2020-06-19 15:50] LABS: Alanine Aminotransferase 36 U/L (12-78); Albumin Level 4.8 g/dl (3.5-5.0); Alkaline Phosphatase 46 U/L (38-126); Aspartate Amino Transferase 35 U/L (14-36); Bilirubin,Direct 0.1 mg/dl (0.0-0.4); Bilirubin,Indirect 0.3 mg/dL (0.0-0.9); Bilirubin,Total 0.4 mg/dl (0.2-1.3); Bilirubin,Unconjugated 0.3 mg/dL (0.0-1.1); Chol/HDL Ratio 5.2 (1-3.5); Cholesterol 219 mg/dl (140-200); Creatine Kinase 104 U/L (30-135); HDL Cholesterol 42 mg/dl (40-60); Total Protein,Serum 7.4 g/dl (6.3-8.2); Triglycerides 286 mg/dl (30-150); VLDL Cholesterol 57 mg/dL (0-40)
[2020-06-19 16:02] LABS: Direct LDL Cholesterol 130.83 mg/dL (100-129)
== END ==
PROVIDERS: Physician Assistant; PCP Nurse Practitioner Family
DX: I10 Essential (primary) hypertension (principal); E78.5 Hyperlipidemia, unspecified; Z01.812 Encounter for preprocedural laboratory examination; H25.12 Age-related nuclear cataract, left eye; Z20.822 Contact with and (suspected) exposure to COVID-19
CPT/HCPCS: 36415; 80061; 80076; 82550; U0003

== ENCOUNTER → 2020-06-19 14:28 | Outpatient (POV) | payer MEDICARE, OTHER, SELFPAY | DX: Z00.00 Encounter for general adult medical examination without abnormal findings (principal) ==

== ENCOUNTER → 2020-07-10 14:16 | Outpatient (POV) | payer MEDICARE, OTHER, SELFPAY | DX: Z00.00 Encounter for general adult medical examination without abnormal findings (principal) ==

== ENCOUNTER → 2020-08-14 13:01 | Outpatient (POV) | payer MEDICARE, OTHER, SELFPAY | DX: Z00.00 Encounter for general adult medical examination without abnormal findings (principal) ==

== ENCOUNTER → 2020-08-28 13:01 | Outpatient (POV) | payer MEDICARE, OTHER, SELFPAY | DX: Z00.00 Encounter for general adult medical examination without abnormal findings (principal) ==

== ENCOUNTER → 2020-11-18 14:03 | Outpatient (CLI) | payer MEDICARE, OTHER, SELFPAY | PROVIDERS: Visit Provider Surgery | DX: Z01.812 Encounter for preprocedural laboratory examination (principal); Z20.822 Contact with and (suspected) exposure to COVID-19; Z13.810 Encounter for screening for upper gastrointestinal disorder | CPT/HCPCS: U0003 ==

== ENCOUNTER 2020-11-20 06:47 | Day surgery (SDC) | payer MEDICARE, OTHER, SELFPAY ==
[2020-11-13 14:08] VITALS: BMI 32.3
[2020-11-20] VITALS (7 sets, daily range): BP systolic 104–140; BP diastolic 55–81; PULSE 55–66; RESP 18; TEMP 36.1–36.9; O2SAT 94–100
--- NOTE | 2020-11-20 07:22 | HMH.ANESCL ---
[facility] Anesthesia Checklist - Patient Identification Patient Identification: Arm Band, Verbal (Name & ) - Structural Data Admitted From: Home Planned Operative Procedure/s: egd Consent for Planned Operative Procedure(s) Verified: Yes Verified Documents: History and Physical - NPO Status Verified Time NPO: 00:00 - Additional verifications Patient : No Anesthesia Reactions: No Hx Blood Transfusions: No Blood Transfusion Reaction: No Cephalosporin Allergy: No Previous Colonoscopy: Yes - Cardiovascular Assessment Heart Sounds: S1 & S2 Pulse Strength: Baseline Pulse Rhythm: Regular Peripheral Edema: No - Airway Assessment C-Spine Mobility Assessed: Yes TMJ Mobility Assessed: Yes Dentition: Dentures-good fit - Neurological Assessment Level of Consciousness: Awake, Alert, Appropriate Hx Seizures: No Numbness or tingling in extremities: No - Anesthesia Plan Anesthesia Risk discussed: Yes Anesthesia Plan: Verified ASA Class: III Anesthesia Type: MAC [facility] History I have reviewed the patient's past medical history: Yes Medical History: Reports:: Anxiety, Depression, Gastroesophageal Reflux Disease(GERD), Hyperlipidemia, Hypertension, Palpitations Denies:: Cancer, Diabetes Mellitus Type 1, Diabetes Mellitus Type 2, Internal Pacemaker, MRSA, Seizures *Have you ever received a pneumonia vaccine?: No *Have you received a flu vaccine this season?: Yes Other Medical History: Reports: Glaucoma, Hypothyroidism, Thyroid Disease. Denies: Blood Transfusion Reaction Anesthesia experience/problems:: none Laterality Cases: Left: Arthroscopy Knee, Bilateral: Other Other Surgeries: Yes: Appendectomy, Cholecystectomy, Colonoscopy, EGD, Hysterectomy-Total, Hysterectomy-Partial, Other. No: Pacemaker Amputation: No Fractures: No - *Social History Smoking Status: Former smoker Alcohol Intake: never Alcohol Intake Frequency:: other Substance Use Type: denies use *Occupational Status:: retired Housing: house Household Members: spouse *Travel in the last 8 weeks: None - Psychiatric History Pschychiatric History:: Reports:: Anxiety, Depression Family Hx:: Cancer, Coronary Artery Disease, Diabetes, Heart Attack, Hyperlipidemia, Hypertension, Stroke, Substance abuse, Alcoholism
--- NOTE | 2020-11-20 08:17 | P.PCN_ITS ---
- Procedure: Date: 11/20/20 Patient Date of :: 1950 Procedure Performed:: Esophagogastroduodenoscopy with biopsy and polypectomy using hot snare Indications:: Patient is a 70-year-old female. She has had numerous EGDs over many years. Interestingly she has had large polypoid lesions in the prepyloric location which have been removed and repeatedly revealed merely hyperplastic polyp interestingly. She had intermittently developed symptoms of gastric outlet obstruction and repeated EGDs have revealed recurrent hyperplastic polyps. She actually had been followed at some point by gastroenterology in [place]. It was felt that resection would not be optimal as she could develop recurrent polyps elsewhere which may be less easily accessible. Last upper endoscopy was in April of this year. She was found to have large polypoid lesions in the prepyloric location which were removed. These once again returned as hyperplastic polyps. She does state that she is occasionally had some spasm type pains post procedure. After her last upper endoscopy due to the early recurrence of these lesions I have once again discussed with her possible referral for more definitive intervention. At this time plan will be to proceed with repeat upper endoscopy. She has began to develop some minor symptoms consistent with reflux but no obvious gastric outlet obstruction. Please note that the morning of the procedure patient had stated she had some possible dysphagia type symptoms and wheezing. Performing Provider:: Isaac Golden MD Referring Provider:: None Sedation:: MAC sedation Procedure:: Patient was taken to endoscopy procedure room. She was positioned in lateral decubitus position. Adequate intravenous sedation was achieved with anesthesia titration of propofol. Olympus endoscope was inserted via the oropharynx. Esophagus was cannulated. There may have been some cricopharyngeal spasm. Overall esophagus appeared unremarkable. Gastroesophageal junction was encountered at approximately 35 cm from the incisors. Stomach was cannulated and insufflated. Retroflexion revealed moderate hiatal hernia. In the prepyloric location there were several moderately large polypoid lesions. These were removed using hot snare. There was residual lesion noted but this appeared to be ischemic secondary to the snare cautery and additional polypectomy was not performed. Please note that prior to doing polypectomy the endoscope was advanced into the duodenum which appeared unremarkable. The polypoid lesions were removed with the Callaway net retrieval device with several withdrawal and reinsertion of the endoscope. The endoscope was then withdrawn to the distal esophagus and due to her symptoms of dysphagia several biopsies were obtained to evaluate for microscopic esophagitis. Endoscope was withdrawn. Findings:: Moderate hiatal hernia Several prepyloric gastric polypoid lesions Recommendations:: Follow-up on histopathology and biopsies. Dysphagia may be functional. Likely consider repeat endoscopy 6 months given her prior history. Complications:: None immediately apparent Estimated blood obtained (mL): 3
== END 2020-11-20 09:05 | disposition home or self-care (01) ==
LOC: OUTP 06:49
PROVIDERS: PCP Nurse Practitioner Family; Visit Provider Surgery
PROC: 0DJ08ZZ Inspection of Upper Intestinal Tract, Via Natural or Artificial Opening Endoscopic (ICD-10-PCS; CPT 43235; principal; 2020-11-20 08:00)
DX: K44.9 Diaphragmatic hernia without obstruction or gangrene (principal); K31.7 Polyp of stomach and duodenum; R13.10 Dysphagia, unspecified; Z87.19 Personal history of other diseases of the digestive system; K21.9 Gastro-esophageal reflux disease without esophagitis; E78.5 Hyperlipidemia, unspecified; I10 Essential (primary) hypertension; R00.2 Palpitations; E03.9 Hypothyroidism, unspecified; F41.9 Anxiety disorder, unspecified; F32.9 Major depressive disorder, single episode, unspecified; Z90.49 Acquired absence of other specified parts of digestive tract
CPT/HCPCS: 43239; 43251; 88305

== ENCOUNTER → 2020-11-29 10:11 | Outpatient (CLI) | payer MEDICARE, OTHER, SELFPAY ==
--- NOTE | 2020-11-29 10:21 | US_ITS ---
APPROVED REPORT Exam Type: Lower Extremity Segmental Pressures Green Prize Packer: KENDALL Reyes Claudication: Bilaterally History of Smoking Risk Factors Hypertension Hyperlipidemia Findings Rt. ERIN: 1.19 Lt. ERIN: 1.17 Rt. TBI: 1.04 Lt. TBI: 0.87 Normal pulses and waveforms noted bilaterally. Conclusion Rt. ERIN: 1.19 Lt. ERIN: 1.17 Rt. TBI: 1.04 Lt. TBI: 0.87 Normal pulses and waveforms noted bilaterally. Normal appearing resting noninvasive lower extremity arterial study. Electronically signed by : Gavin Enrique MD 11/29/2020 16:53:59
== END ==
PROVIDERS: PCP Nurse Practitioner Family; Visit Provider Nurse Practitioner Family
DX: I70.213 Atherosclerosis of native arteries of extremities with intermittent claudication, bilateral legs (principal)
CPT/HCPCS: 93923

== ENCOUNTER → 2021-04-23 11:01 | Outpatient (CLI) | payer MEDICARE, OTHER, SELFPAY | PROVIDERS: PCP Nurse Practitioner Family; Visit Provider Surgery | DX: Z01.812 Encounter for preprocedural laboratory examination (principal); Z11.52 Encounter for screening for COVID-19; Z13.810 Encounter for screening for upper gastrointestinal disorder; Z12.11 Encounter for screening for malignant neoplasm of colon | CPT/HCPCS: C9803; U0003; U0005 ==

== ENCOUNTER → 2021-05-06 14:29 | Outpatient (CLI) | payer MEDICARE, OTHER, SELFPAY ==
--- NOTE | 2021-05-06 14:31 | CA_ITS ---
APPROVED REPORT EXAM: Comprehensive 2D, Doppler, and color-flow Echocardiogram Director [place]: [place] James, LATOYA, RVS Ht: 5 ft 6 in Wt: 192lbs BSA: 1.97 BP: 141/61 mmHg Indications: Htn, SOA, Palpitations, MR, TR, Preop total knee 2D Dimensions IVSd 0.88 cm LVEF (Visual) 68.60 % PWd 0.62 cm LA Volume 63.90 mL LVDd 5.28 cm LA Volume Index 32.40 mL/m2 (M/F) 16-34 LVDs 3.24 cm Aortic Root 2.61 cm Left Atrium 3.11 cm LVOT 1.97 cm (M/F) 1.5-2.5 M-Mode Dimensions LA Diam 3.31 cm (1.9-4.0) Ao Diam 2.76 cm (2.0-3.7) EPSs 1.58 cm TAPSE 1.87 (<1.7) LV Diastology E Decel Time 347.00 (160-240 msec) E/A Ratio 1.01 MED E' 8.40 (< 7 cm/sec) MED A' 9.40 cm/s E'/MED E' Ratio 7.92 (>14) LAT E' 10.80 (<10 cm/sec) LAT A' 11.40 cm/s E/LAT E' Ratio 6.16 (>14) Aortic Valve LVOT Max 104.00 (70-110 cm/s) LVOT VTI 24.03 cm AoV Peak Magdi. 154.00 (50-130 cm/s) AO Peak GR. 9.50 mmHg AO Mean GR. 4.80 (<5 mmHg) AO VTI 34.25 (18-25 cm) BLANCA (VTI) 2.14 (2.5-4.5 cm2) Mitral Valve MV A Velocity 66.00 (40-130 cm/s) E/A Ratio 1.01 MV Decel. Time 347.00 (160-240 ms) Pulmonary Valve PV Peak Velocity 86.00 (50-150 cm/s) Tricuspid Valve TR P. Velocity 272.00 cm/s RAP Estimate 10.00 mmHg RVSP 39.70 mmHg Left Ventricle Left atrium is mildly enlarged, left ventricle is normal size, there is no concentric left ventricular hypertrophy, visually estimated ejection fraction 55% with no regional wall motion abnormality, diastolic parameters are within normal range. Right Ventricle Right atrium and right ventricle are normal size and contractility. Aortic Valve Aortic valve is minimally thickened and fibrosed, there is no aortic stenosis or aortic insufficiency. Mitral Valve Mitral valve leaflets are grossly normal, there is trace mitral regurgitation. Tricuspid Valve Tricuspid valve grossly normal, there is trace tricuspid regurgitation, tricuspid regurgitation jet velocity is inadequate for calculation of the right ventricular systolic pressure. Pulmonic Valve Pulmonic valve is poorly visualized. Great Vessels Aortic root is normal size. Inferior vena cava is normal size with normal inspiratory collapse. Pericardium No significant pericardial effusion noted. Conclusion 1. Normal left ventricular size, preserved left ventricular systolic function, visually estimated ejection fraction 55% with no regional wall motion abnormality, diastolic parameters are within normal range. 2. Trace mitral and tricuspid regurgitation. 3. No significant pericardial effusion. 4. Inferior vena cava normal size with normal inspiratory collapse. Electronically signed by : Edouard Shannon MD 05/06/2021 19:26:00
== END ==
PROVIDERS: PCP Nurse Practitioner Family; Visit Provider Urology
DX: I10 Essential (primary) hypertension (principal); R00.2 Palpitations; R06.00 Dyspnea, unspecified; Z01.810 Encounter for preprocedural cardiovascular examination
CPT/HCPCS: 93306

== ENCOUNTER → 2021-05-07 13:21 | Outpatient (CLI) | payer MEDICARE, OTHER, SELFPAY | PROVIDERS: PCP Nurse Practitioner Family; Visit Provider Surgery | DX: Z01.812 Encounter for preprocedural laboratory examination (principal); Z11.52 Encounter for screening for COVID-19; Z13.810 Encounter for screening for upper gastrointestinal disorder; Z12.11 Encounter for screening for malignant neoplasm of colon | CPT/HCPCS: C9803; U0003; U0005 ==

== ENCOUNTER 2021-05-09 08:10 | Day surgery (SDC) | payer MEDICARE, OTHER, SELFPAY ==
[2021-04-24 08:58] VITALS: BMI 31.3
[2021-05-06 16:07] VITALS: BMI 31.3
[2021-05-07 09:52] VITALS: BMI 31.1
[2021-05-09] VITALS (7 sets, daily range): BP systolic 126–161; BP diastolic 64–83; PULSE 58–66; RESP 18; TEMP 36.1–36.8; O2SAT 94–98
--- NOTE | 2021-05-09 10:26 | HMH.SCOPE ---
- Procedure: Date: 05/09/21 Patient Date of :: 1950 Procedure Performed:: Esophagogastroduodenoscopy with biopsy and polypectomy using hot snare Total colonoscopy to terminal ileum with biopsy and polypectomy using biopsy forceps Indications:: Patient presents to the office for repeat upper endoscopy and colonoscopy. She is a 70-year-old female who has undergone numerous EGDs over many years. Initial EGD was performed on August 03, 2006. She has had large polypoid lesions in the prepyloric location which have been removed and repeatedly returned as merely hyperplastic polyps. She has occasionally developed symptoms of partial gastric outlet obstruction with the bloating. I had actually had her see gastroenterology in [place] for additional therapy and possible referral for possible resection. It was felt that resection would not be optimal as she could develop polyps elsewhere that may not be as easily accessible as in the prepyloric location. Last endoscopy was in November 2020. Plan was for tentative 6-month follow-up. She does state that she is having some recurrent symptoms. She describes some heartburn and postprandial fullness. She also has some dysphagia type symptoms. She also asked about a colonoscopy. She has had some rectal bleeding. It sounds as though this is characterized by relatively fresh appearing blood on toilet paper with some change in the character of her stools with black spots in areas. She had colonoscopy July 09, [address] Bess had a sigmoid polyp removed. Patient is scheduled for knee replacement on May 14. Plan was for EGD and colonoscopy. She is on Protonix for her upper GI symptoms but Dexilant seems to give her better relief Performing Provider:: Isaac Golden MD Referring Provider:: None Sedation:: MAC sedation Procedure:: Patient was taken to endoscopy procedure room. She was positioned lateral decubitus position. Attention was first turned to upper endoscopy. After adequate anesthesia was achieved the Olympus endoscope was inserted via the oropharynx. Esophagus was cannulated the endoscope was advanced. Gastroesophageal junction was encountered at approximately 35 cm from the incisors. Stomach was cannulated and insufflated. Retroflexion revealed moderately large sliding hiatal hernia. She had some moderate antral gastritis. There were several moderately large prepyloric polyps. These were removed debulking this with the hot snare. Polypoid tissue was removed using the Callaway net. Biopsies obtained of the antrum gastritis. Pylorus was traversed. Duodenal bulb and second and third portion of duodenum appeared unremarkable. Endoscope was withdrawn into the stomach. Stomach was desufflated and the endoscope was withdrawn. Next attention was turned to colonoscopy. Digital examination was performed which was unremarkable. Variable stiffness Olympus colonoscope was inserted via the anus. Due to some sharp angulation and tortuosity with possible rectocele the endoscope was initially unable to be advanced beyond the rectosigmoid region. Variable stiffness manipulation did not seem to help. Ultimately the colonoscope was replaced with an additional colonoscope. This was inserted via the anus. It was ultimately able to be advanced beyond this area and to the cecum. Colonic preparation was good and visualization was good. Ileocecal valve and appendiceal orifice were clearly identified. Colonoscope was advanced a generous distance into the terminal ileum which appeared grossly normal. Colonoscope was slowly withdrawn through the colon with careful surveillance. The rectosigmoid region where there was this angulation there was some minor irritation. Biopsy was performed. There is a tiny diminutive rectosigmoid polyp removed with cold biopsy forceps which appeared hyperplastic. Retroflexion within the rectum revealed nonbleeding internal hemorrhoids. Colonoscope was withd
--- NOTE | 2021-05-09 11:46 | HMH.ANESCL ---
[facility] Anesthesia Checklist - Patient Identification Patient Identification: Arm Band, Verbal (Name & ) - Structural Data Admitted From: Home Planned Operative Procedure/s: Colonoscopy Consent for Planned Operative Procedure(s) Verified: Yes Verified Documents: Surgical Consent - NPO Status Verified Time NPO: 00:00 - Chart Verification Results Verified: None - Additional verifications Anesthesia Reactions: No Hx Blood Transfusions: No Blood Transfusion Reaction: No - Airway Assessment C-Spine Mobility Assessed: Yes TMJ Mobility Assessed: Yes Dentition: Partials - Neurological Assessment Level of Consciousness: Awake, Alert, Appropriate - Anesthesia Plan Anesthesia Risk discussed: Yes ASA Class: II Anesthesia Type: MAC [facility] History Medical History: Reports:: Anxiety, Cancer, Depression, Gastroesophageal Reflux Disease(GERD), Hyperlipidemia, Hypertension, Palpitations Denies:: Diabetes Mellitus Type 1, Diabetes Mellitus Type 2, Internal Pacemaker, MRSA, Seizures *Have you ever received a pneumonia vaccine?: Yes *Have you received a flu vaccine this season?: Yes Other Medical History: Reports: Glaucoma, Hypothyroidism, Thyroid Disease. Denies: Blood Transfusion Reaction Anesthesia experience/problems:: none Laterality Cases: Left: Arthroscopy Knee, Partial Knee Replacement, Bilateral: Lumpectomy, Other Other Surgeries: Yes: Appendectomy, Cholecystectomy, Colonoscopy, EGD, Hysterectomy-Total, Hysterectomy-Partial, Other. No: Pacemaker Amputation: No Fractures: No - *Social History Last grade of school completed: High school graduate Smoking Status: Never smoker #Yrs smoked (if former smoker): 1 Smoking End Date: 1968 Alcohol Intake: never Alcohol Intake Frequency:: other Substance Use Type: denies use *Occupational Status:: retired Housing: house Household Members: spouse *Travel in the last 8 weeks: None - Psychiatric History Pschychiatric History:: Reports:: Anxiety, Depression Family Hx:: Cancer, Coronary Artery Disease, Diabetes, Heart Attack, Hyperlipidemia, Hypertension, Stroke, Substance abuse, Alcoholism
== END 2021-05-09 11:15 | disposition home or self-care (01) ==
LOC: OUTP 08:11
PROVIDERS: PCP Nurse Practitioner Family; Visit Provider Surgery
PROC: 0DJ08ZZ Inspection of Upper Intestinal Tract, Via Natural or Artificial Opening Endoscopic (ICD-10-PCS; CPT 43235; principal; 2021-05-09 09:30)
DX: K29.70 Gastritis, unspecified, without bleeding (principal); K31.7 Polyp of stomach and duodenum; K44.9 Diaphragmatic hernia without obstruction or gangrene; K56.2 Volvulus; K63.5 Polyp of colon; Z87.19 Personal history of other diseases of the digestive system; Z86.010 Personal history of colon polyps; K62.5 Hemorrhage of anus and rectum; R13.10 Dysphagia, unspecified; F41.9 Anxiety disorder, unspecified; F32.A Depression, unspecified; K21.9 Gastro-esophageal reflux disease without esophagitis; E78.5 Hyperlipidemia, unspecified; I10 Essential (primary) hypertension; R00.2 Palpitations; E03.9 Hypothyroidism, unspecified
CPT/HCPCS: 43239; 43251; 45380; 88305; 88342; J2704

== ENCOUNTER → 2021-11-18 13:57 | Outpatient (POV) | payer MEDICARE, OTHER, SELFPAY | PROVIDERS: Visit Provider Dermatology | DX: Z00.00 Encounter for general adult medical examination without abnormal findings (principal) ==

== ENCOUNTER 2022-01-16 06:14 | Day surgery (SDC) | payer MEDICARE, OTHER, SELFPAY ==
[2022-01-14 09:37] VITALS: BMI 30.5
[2022-01-16 06:48] VITALS: BP 145/60; PULSE 69; RESP 18; TEMP 36.3; O2SAT 94
--- NOTE | 2022-01-16 07:11 | P.PN_ITS ---
[facility] ON LICENSE OF [facility] Medical History Aftercare following bilateral knee joint replacement surgery Allergies Cancer Daytime somnolence Endometriosis Fibromyalgia Glaucoma Headache History of back pain History of cataract History of COVID-19 History of gastroesophageal reflux (GERD) Hyperlipemia Hypertension Hypothyroid Major depressive disorder DMITRY (obstructive sleep apnea) Restless sleeper Sinus headache Sleep apnea Snoring Surgical History H/O total hysterectomy History of cataract surgery History of cholecystectomy History of esophagogastroduodenoscopy (EGD) History of surgery History of total knee replacement Hx of appendectomy Family History Other Cancer Coronary artery disease Diabetes Heart attack Hyperlipidemia Hypertension Stroke Social History (Updated 01/16/22 @ 06:56 by Delilah Dos Santos RN) Smoking Status: Former smoker pack-years: 1 years smoked: 1 smoking status stop date: 1994 second hand exposure: No alcohol intake: never substance use type: denies use current occupational status: retired Travel in the last 8 weeks: None household members: spouse housing: house marital status: number of children: 4 current occupation: [employer] current occupational exposures/hazards: Yes caffeine: Yes [facility] Anesthesia Checklist Patient Identification Patient Identification: Arm Band and Family Structural Data Admitted From: Home Planned Operative Procedure/s: colonoscopy Consent for Planned Operative Procedure(s) Verified: Yes Verified Documents: Surgical Consent NPO Status Verified Time NPO: 00:00 Additional verifications Patient : No Anesthesia Reactions: No Hx Blood Transfusions: No Blood Transfusion Reaction: No Cephalosporin Allergy: No Previous Colonoscopy: Yes Airway Assessment C-Spine Mobility Assessed: Yes TMJ Mobility Assessed: Yes Dentition: Partials Neurological Assessment Level of Consciousness: Awake, Alert, Appropriate and Follows Commands Hx Seizures: No Numbness or tingling in extremities: No Genitourinary Assessment Voided 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
[2022-01-16 07:32] VITALS: O2SAT 97
[2022-01-16 07:55] VITALS: BP 97/52; PULSE 63; RESP 18; TEMP 36.2; O2SAT 92
--- NOTE | 2022-01-16 07:55 | HMH.SCOPE ---
Procedure: Date: 01/16/22 Patient Date of :: 1950 Procedure Performed:: Esophagogastroduodenoscopy with polypectomy using hot snare Indications:: Patient presents for follow-up EGD. She is a 71-year-old female who has undergone numerous EGDs over many years. Initial EGD was performed on August 03, 2006. She has had large polypoid lesions in the prepyloric location which have been removed and repeatedly returned as merely hyperplastic polyps. She has occasionally developed symptoms of partial gastric outlet obstruction with the bloating and reflux. I had actually had her see gastroenterology in [place] for additional therapy and possible referral for possible resection. At that time it was felt that resection would not be optimal as she could develop polyps elsewhere that may not be as easily accessible as in the prepyloric location. Most recent EGD was performed April 2021. She recently presented to the office stating that she is having some recurrent symptoms. She describes some heartburn and postprandial fullness. She also has some dysphagia type symptoms. This is followed by diarrhea. She is on Protonix for her upper GI symptoms but Dexilant seems to give her better relief. She has tried multiple medications either by prescription or [id number] and Dexilant is essentially the only medicine that tends to give her relief. Last upper endoscopy revealed gastroesophageal junction 35 cm from the incisors, moderately large sliding hiatal hernia, prepyloric large gastric polyps which once again surprisingly revealed large benign hyperplastic polyps. When I had seen the patient in the office last informed her that it appears as though the prepyloric polyps were recurring somewhat more aggressively and more frequently and that consideration may be given for referral for possible resection (antrectomy) and repair of hiatal hernia. However, plan was made to proceed with EGD for evaluation. Performing Provider:: Isaac Golden MD Referring Provider:: None Sedation:: MAC sedation Procedure:: Patient was taken to endoscopy procedure room. She was positioned in lateral decubitus position. Adequate intravenous sedation was achieved with anesthesia titration of propofol. Olympus endoscope was inserted via the oropharynx. Esophagus was cannulated. There were findings of possible esophageal dysmotility. Gastroesophageal junction was encountered at approximately 35 cm. Stomach was cannulated and insufflated. Retroflexion revealed a moderate to moderately large sliding hiatal hernia. In the antrum in the prepyloric location there were 3 moderately large polypoid lesions. These were removed with hot snare. There was a smaller more sessile lesion as well which was not removed. Prior to doing so the pylorus was traversed and the duodenum appeared unremarkable. These polyps, once removed, were retrieved using the Callaway net retrieval device and sent for pathology as gastric polyps. There was good hemostasis. Stomach was desufflated and the endoscope was withdrawn. Findings:: Findings consistent with possible esophageal dysmotility Gastroesophageal junction at 35 cm Gastric antral polyps as noted above Recommendations:: I will follow-up on her symptomatology and pathology. Based on these endoscopic findings it does not appear as though these would be causing a gastric outlet obstruction at this time. Much of her symptomatology may be secondary to moderately large sliding hiatal hernia and esophageal dysmotility. I may consider referral for consideration of laparoscopic hiatal hernia repair and possible consideration of gastric resection. Complications:: None immediately apparent Estimated blood obtained (mL): 1
--- NOTE | 2022-01-16 08:00 | P.PN_ITS ---
[facility] Medical History Aftercare following bilateral knee joint replacement surgery Allergies Cancer Daytime somnolence Endometriosis Fibromyalgia Glaucoma Headache History of back pain History of cataract History of COVID-19 History of gastroesophageal reflux (GERD) Hyperlipemia Hypertension Hypothyroid Major depressive disorder DMITRY (obstructive sleep apnea) Restless sleeper Sinus headache Sleep apnea Snoring Surgical History H/O total hysterectomy History of cataract surgery History of cholecystectomy History of esophagogastroduodenoscopy (EGD) History of surgery History of total knee replacement Hx of appendectomy Family History Other Cancer Coronary artery disease Diabetes Heart attack Hyperlipidemia Hypertension Stroke Social History (Updated 01/16/22 @ 06:56 by Delilah Dos Santos RN) Smoking Status: Former smoker pack-years: 1 years smoked: 1 smoking status stop date: 1994 second hand exposure: No alcohol intake: never substance use type: denies use current occupational status: retired Travel in the last 8 weeks: None household members: spouse housing: house marital status: number of children: 4 current occupation: [employer] current occupational exposures/hazards: Yes caffeine: Yes [facility] Anesthesia Checklist Patient Identification Patient Identification: Arm Band and Family Structural Data Admitted From: Home Planned Operative Procedure/s: EGD Consent for Planned Operative Procedure(s) Verified: Yes Verified Documents: Surgical Consent NPO Status Verified Time NPO: 00:00 Additional verifications Patient : No Anesthesia Reactions: No Hx Blood Transfusions: No Blood Transfusion Reaction: No Cephalosporin Allergy: No Previous Colonoscopy: Yes Airway Assessment C-Spine Mobility Assessed: Yes TMJ Mobility Assessed: Yes Dentition: Partials Neurological Assessment Level of Consciousness: Awake, Alert and Appropriate Hx Seizures: No Numbness or tingling in extremities: No Genitourinary Assessment Voided 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
[2022-01-16 08:05] VITALS: BP 113/64; PULSE 60; RESP 18; O2SAT 96
[2022-01-16 08:15] VITALS: BP 124/69; PULSE 67; RESP 18; O2SAT 95
[2022-01-16 08:27] VITALS: BP 132/72; PULSE 59; RESP 18; O2SAT 98
== END 2022-01-16 08:30 | disposition home or self-care (01) ==
PROVIDERS: PCP Nurse Practitioner Family; Visit Provider Surgery
PROC: 0DJ08ZZ Inspection of Upper Intestinal Tract, Via Natural or Artificial Opening Endoscopic (ICD-10-PCS; CPT 43235; principal; 2022-01-16 07:30)
DX: K31.7 Polyp of stomach and duodenum (principal); R13.10 Dysphagia, unspecified; R19.7 Diarrhea, unspecified; Z79.899 Other long term (current) drug therapy
CPT/HCPCS: 43251; J2405

== ENCOUNTER → 2022-02-04 11:19 | Outpatient (CLI) | payer MEDICARE, OTHER, SELFPAY ==
--- NOTE | 2022-02-04 11:27 | XR_ITS ---
PROCEDURE INFORMATION: Exam: XR Lumbosacral Spine Exam date and time: 02/04/2022 11:29 AM Age: 71 years old Clinical indication: Low back pain; Additional info: Spondylosis TECHNIQUE: Imaging protocol: Radiologic exam of the lumbosacral spine. Views: 4 or 5 views. COMPARISON: CR LS5 LUMBAR SPINE 5 VIEWS 12/17/2016 1:07 PM FINDINGS: Bones/joints: There are moderate degenerative disc and facet joint changes L5-S1 with diffuse disc space narrowing and endplate sclerosis. There are mild degenerative changes involving the remainder lumbar spine as well as the lower thoracic spine. There are no compression fractures spondylolysis or spondylolisthesis. Soft tissues: Unremarkable. Vasculature: Abdominal aorta is diffusely calcified. IMPRESSION: Mild-moderate multilevel degenerative changes most pronounced at L5-S1.
== END ==
PROVIDERS: PCP Nurse Practitioner Family; Visit Provider Pain Medicine Interventional Pain Medicine
DX: M47.816 Spondylosis without myelopathy or radiculopathy, lumbar region (principal)
CPT/HCPCS: 72110

== ENCOUNTER → 2022-11-04 13:59 | Outpatient (CLI) | payer MEDICARE, OTHER, SELFPAY ==
[2022-11-04 14:09] LABS: MANUAL DIFFERENTIAL MANUAL DIFFERENTIAL (MANUAL DIFF)
[2022-11-04 14:46] LABS: Basophils # 0.1 K/mm3 (0-0.2); Basophils % 0.5 % (0.1-2.0); Eosinophils # 0.2 K/mm3 (0.0-0.4); Eosinophils % 1.9 % (0.1-12.0); Hematocrit 43.4 % (37.0-47.0); Hemoglobin 13.8 g/dL (12.2-16.2); Lymphocytes % 31.4 % (10-50); Mean Corpuscular HGB Conc 31.7 g/dL (31.8-35.4); Mean Corpuscular Hemoglobin 26.1 pg (27.0-31.2); Mean Corpuscular Volume 82.5 fl (81-99); Mean Platelet Volume 9.1 fl (7.4-10.4); Monocytes # 0.7 K/mm3 (0.1-1.0); Monocytes % 6.8 % (1.7-9.3); Neutrophils # 5.6 K/mm3 (1.8-7.8); Neutrophils % 59.4 % (37.0-80.0); Platelet Count 295 K/mm3 (142-424); Red Blood Count 5.27 M/mm3 (4.20-5.40); Red Cell Distribution Width 15.6 % (11.5-17.5); White Blood Count 9.5 K/mm3 (4.8-10.8)
[2022-11-04 15:07] LABS: Alanine Aminotransferase 35 U/L (12-78); Albumin Level 4.7 g/dl (3.5-5.0); Alkaline Phosphatase 62 U/L (38-126); Anion Gap 13.3 mEq/L (5-15); Aspartate Amino Transferase 34 U/L (14-36); Bilirubin,Indirect 0.2 mg/dL (0.0-0.9); Bilirubin,Total 0.2 mg/dl (0.2-1.3); Bilirubin,Unconjugated 0.3 mg/dL (0.0-1.1); Blood Urea Nitrogen 20 mg/dl (7-17); Carbon Dioxide 26 mmol/L (22.0-30.0); Chloride 106 mmol/L (98-107); Chol/HDL Ratio 5.9 (1-3.5); Cholesterol 230 mg/dl (140-200); Estimated Glomerular Filt Rate 62 ml/min (>60); GFR (African American) 75 ML/MIN (>60); Glucose 86 mg/dl (74-100); HDL Cholesterol 39 mg/dl (40-60); Potassium 4.3 mmoL/L (3.5-5.1); Sodium 141 mmol/L (136-145); Total Protein,Serum 7.6 g/dl (6.3-8.2); Triglycerides 257 mg/dl (30-150); VLDL Cholesterol 51 mg/dL (0-40)
[2022-11-04 15:19] LABS: Direct LDL Cholesterol 135.95 mg/dL (100-129)
[2022-11-04 15:24] LABS: Free Thyroxine Index 2.2 ug/dL (5.93-13.13); T4 (Thyroxine) 7.3 ug/dl (5.53-11.0); Triiodothryronine (T3) Uptake 30 % (23.5-40.5)
[2022-11-04 15:38] LABS: Thyroid Stimulating Hormone 0.34 uIU/mL (0.465-4.68)
[2022-11-04 16:20] LABS: Eosinophils % 2 % (0-3); Hypochromasia 1+; Lymphocytes % 41 % (10-50); Monocytes % 3 % (2-9); Neutrophils % 53 % (42-76); Total Cells Counted 100
[2022-11-04 16:21] LABS: Hypersegmented Neutrophils 1+; Platelet Estimate Normal
== END ==
PROVIDERS: PCP Nurse Practitioner Family; Visit Provider Nurse Practitioner
DX: R25.2 Cramp and spasm (principal); I10 Essential (primary) hypertension
CPT/HCPCS: 36415; 80048; 80061; 80076; 83735; 84436; 84443; 84479; 85007; 85014; 85018; 85048; 85049

== ENCOUNTER → 2022-11-10 07:07 | Outpatient (CLI) | payer MEDICARE, OTHER, SELFPAY ==
--- NOTE | 2022-11-10 07:07 | NM_ITS ---
APPROVED REPORT Exam: Nuclear Stress Test Indication: cheat pain..soa..fatigue..high BP..high cholerterol..family hx Patient Location: Outpatient Stress Tech: Opal Melissa [place] Tech:Judith Hartman ARRUche RT(R)(N) Ht: 5 ft 6 in Wt: 195 lbs Bra Size: 42dd HR: 61 bpm BP: 132/48 mmHg BSA: 1.98 m2 Rhythm: NSR TID: 1.09 BMI: 31.4 History: cheat pain..soa..fatigue..high BP..high cholerterol..family hx Procedure: Patient received 0.4 mg of intravenous Lexiscan, resting heart rate 61 bpm, resting blood pressure 132/48 mmHg, with Lexiscan maximum heart rate achieved was 91 bpm which is 85 % of the maximum predicted heart rate and blood pressure was 144/60 mmHg. With Lexiscan, patient denied any complaint of chest pain. Cardiac Stress and Resting SPECT Images: Cardiac Stress and Resting SPECT images were obtained using technetium 99m Myoview 31.0 mCi stress and 10.82 mCi at rest. Resting and stress imaging in both supine and prone positions demonstrate no evidence of fixed or reversible perfusion defects. Gated imaging demonstrates normal global and regional LV systolic function. LVEF is calculated at 62%. Conclusion: No evidence of fixed or reversible perfusion defects. Gated imaging demonstrates normal global and regional LV systolic function. LVEF is calculated at 62%. Electronically signed by : Ghada Jo, 11/11/2022 00:21:46
--- NOTE | 2022-11-10 09:17 | CA_ITS ---
APPROVED REPORT Exam: Pharmacologic Technologist: Opal Melissa Ht: 5 ft 6 in Wt: 194 lbs BSA: 1.97 m2 HR: 61 bpm BP: 132/48 mmHg Indications: Syncope, Dyspnea Medical History Medications: Vitamin D3,,,,, Losartan,,,,, Pramipexole,,,,, HCTZ,,,,, Zoloft,,,,, Tramadol,,,,, BisOPROLOL,,,,, AmiTRIPTYLINE,,,,, Hydroxyzine,,,,, MethIMAZOLE,,,,, RoSUVASTATIN,,,,, AZopt,,,,, Stress Test Details Test: LEXISCAN HR Resting HR: 61 bpm Max Heart Rate (APMHR): 149 bpm Max HR Achieved: 91 bpm Target HR (85% APMHR): 127 bpm % of APMHR: 61 Recovery HR: 79 bpm BP Resting BP: 132.0/48.0 mmHg Max BP: 144.0/60.0 mmHg Recovery BP: 119.0/52.0 mmHg ECG Resting ECG: Sinus rhythm Stress ECG: No change Arrhythmia: Occasional PVCs Clinical Exercise duration: 04:00 min Highest Stage Achieved: Stress ECG Conclusion Symptoms: Chest pressure, headache Arrhythmias/Ectopy: PVC's ST-T Changes: No ST changes Conclusion: Unremarkable Lexiscan stress test. Myoview images are reported separately. Test Summary REST . . . . . . . Resting REST 02:39 . . 61 . 132/ 48 . . Stage 1 . . . . . . . Myoview Injected Stage 1 01:00 . . 78 . . . . Stage 2 01:00 . . 88 . 123/ 60 . . Stage 3 01:00 . . 86 . 141/ 64 . . Stage 4 01:00 . . 86 . 144/ 60 . Stop exercise at 04:00 RECOVERY 01:00 . . 85 . 129/ 62 . . RECOVERY 02:00 . . 78 . 129/ 62 . . RECOVERY 03:00 . . 78 . 142/ 59 . . RECOVERY 03:24 . . 74 . 119/ 52 . . Electronically signed by : Ghada Jo, 11/11/2022 00:20:08
== END ==
PROVIDERS: PCP Nurse Practitioner Family; Visit Provider Nurse Practitioner
DX: R07.9 Chest pain, unspecified (principal)
CPT/HCPCS: 78452; 93017; A9502; J2785

== ENCOUNTER 2023-08-27 15:33 | Outpatient (CLI) | payer MEDICARE, OTHER, SELFPAY ==
--- NOTE | 2023-08-27 15:38 | MR_ITS ---
FINAL REPORT CLINICAL HISTORY: RADICULOPATHY, LBP. LEFT SIDED LEG PAIN. NO INJURY OR TRAUMA FINDINGS: Multiplanar MR imaging of the lumbar spine was performed without contrast. On the sagittal T2-weighted images, disc degeneration is seen throughout. There are endplate changes at multiple levels. Multiple hemangiomas are identified. The vertebral alignment is normal. There is no evidence of fracture. The conus has an unremarkable appearance. T11-12: An annular disc bulge is present. There is no significant canal stenosis or neural foraminal narrowing. T12-L1: An annular disc bulge is present. There is no significant canal stenosis or neural foraminal narrowing. L1-2: An annular bulge is present. Facet arthropathy and osteophytes are present. There is no significant canal stenosis or neural foraminal narrowing. L2-3: An annular bulge is present. Facet arthropathy and osteophytes are present. There is mild bilateral neural foraminal narrowing. L3-4: An annular bulge and facet arthropathy are present. There is no significant canal stenosis or neural foraminal narrowing. L4-5: An annular bulge and facet arthropathy are present. There is mild bilateral neural foraminal narrowing. L5-S1: An annular bulge and facet arthropathy are present. Small central disc protrusion contacts the S1 nerve roots. There is severe bilateral neural foraminal narrowing. IMPRESSION: Multilevel degenerative disc disease and spondylosis. Small central disc protrusion at L5-S1 contacts the S1 nerve roots. Reviewed, Interpreted and Dictated by Isaac Malloy III, MD Transcribed by Niesha Triana Authenticated and [facility]
== END 2023-08-27 23:59 | disposition home or self-care (01) ==
LOC: RAD 15:34
PROVIDERS: PCP Nurse Practitioner Family; Visit Provider Pain Medicine Interventional Pain Medicine
DX: M54.16 Radiculopathy, lumbar region (principal)
CPT/HCPCS: 72148

== ENCOUNTER 2023-09-06 08:39 | Day surgery (SDC) | payer MEDICARE, OTHER, SELFPAY ==
[2023-09-02 14:32] VITALS: BMI 29.0
[2023-09-06] VITALS (7 sets, daily range): BP systolic 97–136; BP diastolic 58–70; PULSE 71–85; RESP 14–18; TEMP 36.7–36.8; O2SAT 92–99
[2023-09-06] MEDS: LACTATED RINGERS 1000ML 1,000 ML 25 ML IV (09:22)
--- NOTE | 2023-09-06 09:37 | HMH.SCOPE ---
Procedure: Date: 09/06/23 Patient Date of :: 1950 Procedure Performed:: Esophagogastroduodenoscopy with polypectomy using hot snare and dilatation of pylorus Indications:: Patient is a 73-year-old female who has undergone numerous EGDs in the past over many years. Initial EGD was performed on 08/03/2006. At that time she had large polypoid lesions in the prepyloric location. These have repeatedly been removed and pathology has always returned as hyperplastic polyps. She has occasionally developed symptoms of partial gastric outlet obstruction with the bloating and reflux. I had actually had her see gastroenterology in [place] for additional therapy and possible referral for possible resection. At that time it was felt that resection would not be optimal as she could develop polyps elsewhere that may not be as easily accessible as in the prepyloric location. Her symptoms have usually been characterized by dyspepsia, heartburn, and postprandial fullness. She has had some occasional dysphagia type symptoms. I had relatively recently considered at referral for possible consultation with foregut surgeon for possible antrectomy and consideration of concomitant repair of hiatal hernia as her symptoms from her hiatal hernia had been progressive and her development of the prepyloric polyps was more frequent and aggressive. She had not been seen in the office since November 2021. She contacted the office stating that she was having recurrent symptoms. Therefore arrangements were made for repeat endoscopy. . Performing Provider:: Isaac Golden MD Referring Provider:: Mackenzie Amaya . Sedation:: MAC sedation Procedure:: Patient history was obtained and appropriate physical examination was performed. Patient's medications and allergies were reviewed. Informed consent was obtained after explaining the benefits, alternatives, and risks of the procedure including, but not limited to, bleeding, perforation, missed lesions, and adverse reaction to anesthesia medications. Patient was transported to endoscopy procedure room. Patient was connected to monitoring devices. Throughout the procedure the patient's blood pressure, pulse, and oxygen saturations were monitored continuously. Patient identification and planned procedure were verified by the staff. Patient was positioned in lateral decubitus position. Olympus endoscope was inserted via the oropharynx. Esophagus was cannulated. There was some tortuosity to the esophagus consistent with esophageal dysmotility. Gastroesophageal junction was encountered at approximately 35 cm. Stomach was cannulated and insufflated. There is a large amount of retained food matter in the stomach. Retroflexion revealed a moderate, approximately 4 to 5 cm, sliding hiatal hernia. Visualization was somewhat limited due to the retained food matter. In the prepyloric location there were several large polypoid masses as previously seen. Interestingly, these did not appear to be actively causing gastric outlet obstruction but there was the potential that they could prolapse into the pylorus. She did have some mild pyloric stenosis and advancement of the endoscope through the pylorus was somewhat limited. Therefore dilatation was performed of the pylorus using the TTS balloon dilator sequentially from 15 to 18 mm luminal diameter. This aided in advancement of the endoscope through the pylorus. At this time plan was made for debulking of the polypoid masses as visualization was somewhat limited due to the retained food matter. Several of the large polyps were removed in somewhat of a piecemeal fashion using the hot snare. The resected portions of the polypoid masses were grasped with the Callaway net retrieval device and withdrawn repeatedly and sent as gastric polyps. All of the polypoid lesions were not removed as access and visualization was limited due to the retained food matter. Endoscope was then withdrawn. . Findings:: Esophageal dysmotility Gastroesophageal junction at 35 cm Moderate 4 to 5 cm hiatal hernia Retained food matter Prepyloric polypoid masses Pyloric stenosis . Recommendations:: May consider repeat endoscopy in a few months for possible additional dilatation and removal of the polypoid lesions. She may benefit from referral for resection. I may consider a gastric emptying scan. . Complications:: None immediately apparent Estimated blood obtained (mL): 3 Colonoscopy Component Colonoscopy Component Was a colonoscopy performed during today's procedure?: No
--- NOTE | 2023-09-06 10:36 | EXP.ANES.CKL ---
[facility] Disclaimer: The information contained in this section may have been updated after the patient was seen, as this information can be updated by other users. 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 nightly History of back pain History of cataract History of COVID-19 History of gastroesophageal reflux (GERD) Hyperlipemia Hypertension Hypothyroid Major depressive disorder DMITRY (obstructive sleep apnea) 06/25/2022: Very mild DMITRY. AHI 4, RDI 11. Intolerance to CPAP, no interest in other treatment options. Overnight oximetry did not indicate hypoxemia or hypercapnia. She was advised to work on lifestyle modification including weight loss, healthy diet, exercise as tolerated and avoid driving if drowsiness, sleepiness present. Restless sleeper Sinus headache Sleep apnea Snoring Surgical History H/O total hysterectomy History of cataract surgery History of cholecystectomy History of esophagogastroduodenoscopy (EGD) History of surgery jaw surgery History of total knee replacement jose martin knee replacement Hx of appendectomy Family History Other Cancer Coronary artery disease Diabetes Heart attack Hyperlipidemia Hypertension Stroke Social History Smoking Status: Former smoker years smoked: 1 smoking status stop date: 1994 second hand exposure: No alcohol intake: never substance use type: denies use current occupational status: retired Travel in the last 8 weeks: None household members: spouse housing: house marital status: number of children: 4 current occupation: [employer] current occupational exposures/hazards: Yes caffeine: Yes [facility] Anesthesia Checklist Patient Identification Patient Identification: Arm Band Structural Data Admitted From: Home Planned Operative Procedure/s: EGD Consent for Planned Operative Procedure(s) Verified: Yes Verified Documents: Surgical Consent and History and Physical NPO Status Verified Time NPO: 00:00 Additional verifications Anesthesia Reactions: No Hx Blood Transfusions: No Blood Transfusion Reaction: No Airway Assessment Mallampati Score:: Class II C-Spine Mobility Assessed: Yes TMJ Mobility Assessed: Yes Neurological Assessment Level of Consciousness: Awake, Alert and Appropriate Anesthesia Plan Anesthesia Risk discussed: Yes Anesthesia Plan: Verified ASA Class: III Anesthesia Type: MAC
== END 2023-09-06 11:05 | disposition home or self-care (01) ==
PROVIDERS: PCP Nurse Practitioner Family; Visit Provider Surgery
PROC: 0DJ08ZZ Inspection of Upper Intestinal Tract, Via Natural or Artificial Opening Endoscopic (ICD-10-PCS; CPT 43235; principal; 2023-09-06 10:30)
DX: R10.10 Upper abdominal pain, unspecified (principal); Z09 Encounter for follow-up examination after completed treatment for conditions other than malignant neoplasm; Z87.19 Personal history of other diseases of the digestive system; K44.9 Diaphragmatic hernia without obstruction or gangrene; K31.1 Adult hypertrophic pyloric stenosis; K22.4 Dyskinesia of esophagus; K31.7 Polyp of stomach and duodenum
CPT/HCPCS: 43245; 43251; 88305; C1726; J2704; J3010; J7120

== ENCOUNTER 2023-09-15 14:28 | Outpatient (CLI) | payer MEDICARE, OTHER, SELFPAY ==
--- NOTE | 2023-09-15 14:42 | XR_ITS ---
FINAL REPORT TECHNIQUE: 3 views CLINICAL HISTORY: PAIN IN THORACIC SPINE FINDINGS: There is no fracture present. There is no subluxation. There are mild diffuse degenerative disc changes. Mild thoracic kyphosis is identified. IMPRESSION: No acute process. Reviewed, Interpreted and Dictated by Zafar Camacho MD Transcribed by Niesha Triana Authenticated and [facility]
== END 2023-09-15 23:59 | disposition home or self-care (01) ==
PROVIDERS: PCP Nurse Practitioner Family; Visit Provider Pain Medicine Interventional Pain Medicine
DX: M54.6 Pain in thoracic spine (principal)
CPT/HCPCS: 72072

== ENCOUNTER 2023-10-12 11:40 | Outpatient (CLI) | payer MEDICARE, OTHER, SELFPAY ==
[2023-10-12 18:23] LABS: Hemoglobin A1C 5.9 % (4.0-6.0)
[2023-10-12 18:46] LABS: Alanine Aminotransferase 31 U/L (12-78); Albumin Level 4.4 g/dl (3.5-5.0); Albumin/Globulin Ratio 1.5 (1.1-1.8); Alkaline Phosphatase 63 U/L (38-126); Anion Gap 11.2 mEq/L (5-15); Aspartate Amino Transferase 34 U/L (14-36); Bilirubin,Total 0.3 mg/dl (0.2-1.3); Blood Urea Nitrogen 19 mg/dl (7-17); Calcium 10.9 mg/dl (8.4-10.2); Carbon Dioxide 27 mmol/L (22.0-30.0); Chloride 109 mmol/L (98-107); Estimated Glomerular Filt Rate 62 ml/min (>60); GFR (African American) 74 ML/MIN (>60); Globulin 2.9 g/dL (1.3-3.2); Glucose 88 mg/dl (74-100); Potassium 5.2 mmoL/L (3.5-5.1); Sodium 142 mmol/L (136-145); Total Protein,Serum 7.3 g/dl (6.3-8.2)
[2023-10-12 19:10] LABS: Thyroid Stimulating Hormone < 0.02 uIU/mL (0.465-4.68)
[2023-10-13 15:06] LABS: Intact Parathyroid Hormone 24.1 pg/mL (7.5-53.5)
[2023-10-13 15:10] LABS: T4 (Thyroxine) 8.6 ug/dl (5.53-11.0)
[2023-10-13 17:15] LABS: 25-OH Vitamin D, Total 42.5 ng/mL (30-100)
[2023-10-15 08:21] LABS: Triiodothyronine (T3) Free 3.3 pg/mL (2.0-4.4)
[2023-10-15 14:23] LABS: Thyroid Peroxidase Antibodies <9 IU/mL (0-34)
[2023-10-15 17:43] LABS: Thyroglobulin Level <1.0 IU/mL (0.0-0.9)
== END 2023-10-12 23:59 | disposition home or self-care (01) ==
LOC: LAB.DROPOF 10-13 11:41
PROVIDERS: PCP Nurse Practitioner Family; Visit Provider Nurse Practitioner Family
DX: E78.2 Mixed hyperlipidemia (principal); I10 Essential (primary) hypertension; R73.9 Hyperglycemia, unspecified; K76.0 Fatty (change of) liver, not elsewhere classified; E05.90 Thyrotoxicosis, unspecified without thyrotoxic crisis or storm; E83.52 Hypercalcemia
CPT/HCPCS: 80053; 82306; 82330; 83036; 83970; 84436; 84443; 84481; 86376; 86800

== ENCOUNTER 2023-11-19 08:58 | Day surgery (SDC) | payer MEDICARE, OTHER, SELFPAY ==
[2023-11-16 10:47] VITALS: BMI 30.7
[2023-11-19 09:15] VITALS: BP 152/71; PULSE 74; RESP 18; TEMP 36.2; O2SAT 94
--- NOTE | 2023-11-19 11:01 | EXP.GEN.HP ---
HPI HPI HPI: Patient presents for follow-up EGD. She has had numerous EGDs over the several years. Initial EGD performed both on 08/03/2006. At that time she had large polypoid lesions in the prepyloric location. These have repeatedly been removed and pathology has always returned as hyperplastic polyps. She has occasionally developed symptoms consistent with partial gastric outlet obstruction characterized by bloating and reflux. 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 At that time was felt that additional therapy or resection would not be advisable. She does have known moderately large hiatal hernia. I have considered possible referral for consultation with foregut surgeon for possible antrectomy with consideration of concomitant repair of hiatal hernia. Last upper endoscopy was on 09/06/2023. At that time she was noted to have some retained food matter within the gastric lumen and once again, prepyloric masses , which were partially removed with hot snare. Pathology once again revealed hyperplastic polyps with focal ulceration . She did have some evidence of pyloric stenosis and this was dilated to 18 mm. All of the lesions were not able to be removed due to retained food matter. Plan was made to proceed with repeat upper endoscopy for possible additional dilatation and removal of polyps in several months. [facility] Disclaimer: The information contained in this section may have been updated after the patient was seen, as this information can be updated by other users. 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 AHI 4, RDI 11. Intolerance to CPAP, no interest in other treatment options, working on lifestyle modifications. Overnight oximetry did not indicate hypoxemia or hypercapnia. Restless sleeper Daytime somnolence Snoring Headache Nearly asymptomatic as long as she is taking amitriptyline 25 mg p.o. nightly. Recurrent symptoms since running out of medication, did not notify clinic. Reluctant to consider changing medications despite of MCI. Surgical History History of trabeculectomy bilateral History of total knee replacement jose martin knee replacement History of surgery jaw surgery History of esophagogastroduodenoscopy (EGD) History of cataract surgery History of cholecystectomy Hx of appendectomy H/O total hysterectomy Family History Other Cancer Coronary artery disease Diabetes Heart attack Hyperlipidemia Hypertension Stroke Social History (Updated 11/19/23 @ 09:25 by Narcisa Bourgeois RN) Smoking Status: Former smoker years smoked: 1 smoking status stop date: 1994 second hand exposure: No alcohol intake: never substance use type: denies use current occupational status: retired Travel in the last 8 weeks: None household members: spouse housing: house marital status: number of children: 4 current occupation: [employer] current occupational exposures/hazards: Yes caffeine: Yes Meds Home Medications and Allergies Home Medications ?Medication ?Instructions ?Recorded ?Confirmed ?Type latanoprost 0.005 % eye drops 2.5 ml ophthalmic (eye) DAILY 04/26/17 11/19/23 History Glaucoma methimazole 5 mg tablet 5 mg PO DAILY thyroid 01/24/20 11/19/23 History multivitamin 1 tab PO
[2023-11-19 11:15] VITALS: O2SAT 94
[2023-11-19 11:38] VITALS: BP 130/66; PULSE 79; RESP 18; TEMP 36.7; O2SAT 93
--- NOTE | 2023-11-19 11:39 | HMH.SCOPE ---
Procedure: Date: 11/19/23 Patient Date of :: 1950 Procedure Performed:: Esophagogastroduodenoscopy with gastric polypectomy and biopsy Indications:: Patient presents for follow-up EGD. She has had numerous EGDs over the several years. Initial EGD performed both on 08/03/2006. At that time she had large polypoid lesions in the prepyloric location. These have repeatedly been removed and pathology has always returned as hyperplastic polyps. She has occasionally developed symptoms consistent with partial gastric outlet obstruction characterized by bloating and reflux. 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 At that time was felt that additional therapy or resection would not be advisable. She does have known moderately large hiatal hernia. I have considered possible referral for consultation with foregut surgeon for possible antrectomy with consideration of concomitant repair of hiatal hernia. Last upper endoscopy was on 09/06/2023. At that time she was noted to have some retained food matter within the gastric lumen and once again, prepyloric masses , which were partially removed with hot snare. Pathology once again revealed hyperplastic polyps with focal ulceration . She did have some evidence of pyloric stenosis and this was dilated to 18 mm. All of the lesions were not able to be removed due to retained food matter. Plan was made to proceed with repeat upper endoscopy for possible additional dilatation and removal of polyps in several months. . Performing Provider:: Isaac Golden MD Referring Provider:: Mackenzie Bhatti Sedation:: MAC sedation Procedure:: Patient history was obtained and appropriate physical examination was performed. Patient's medications and allergies were reviewed. Informed consent was obtained after explaining the benefits, alternatives, and risks of the procedure including, but not limited to, bleeding, perforation, missed lesions, and adverse reaction to anesthesia medications. Patient was transported to endoscopy procedure room. Patient was connected to monitoring devices. Throughout the procedure the patient's blood pressure, pulse, and oxygen saturations were monitored continuously. Patient identification and planned procedure were verified by the staff. Patient was positioned in lateral decubitus position. Olympus endoscope was inserted via the oropharynx. Esophagus was cannulated. There is some tortuosity to the esophagus consistent with esophageal dysmotility. Gastroesophageal junction was encountered at approximately 35 cm. Stomach was cannulated and insufflated. Retroflexion revealed moderate 4 to 5 cm sliding hiatal hernia. There was some minor gastropathy. In the prepyloric location there were several moderately large polypoid lesions. Several were removed using hot snare. There was some residual neoplastic hyperplastic appearing tissue which could not be removed. Gastric biopsy was performed using cold biopsy forceps. The excised gastric polyps were retrieved with the Callaway net. Endoscope was reinserted. As previously stated there appeared to be residual diffuse tissue which was not amenable to removal using endoscopic snare. Pylorus was traversed and there was no evidence of any pyloric stenosis. Endoscope was withdrawn. . Findings:: Esophageal dysmotility Gastroesophageal junction at 35 cm 4 to 5 cm sliding hiatal hernia Diffuse nonerosive gastropathy Prepyloric polypoid masses and residual neoplastic tissue after polypectomy . Recommendations:: Plan to follow-up on histopathology and patient's symptomatology. Could need serial frequent EGD and possible ablation versus referral for resection. Complications:: None immediately apparent Estimated blood obtained (mL): 2 Colonoscopy Component Colonoscopy Component Was a colonoscopy performed
[2023-11-19 11:48] VITALS: BP 141/74; PULSE 68; RESP 16; O2SAT 92
[2023-11-19 11:58] VITALS: BP 140/90; PULSE 72; RESP 16; O2SAT 94
[2023-11-19 12:02] VITALS: BP 136/94; PULSE 76; RESP 18; O2SAT 94
== END 2023-11-19 12:16 | disposition home or self-care (01) ==
PROVIDERS: PCP Nurse Practitioner Family; Visit Provider Surgery
PROC: 0DJ08ZZ Inspection of Upper Intestinal Tract, Via Natural or Artificial Opening Endoscopic (ICD-10-PCS; CPT 43235; principal; 2023-11-19 10:30)
DX: K31.7 Polyp of stomach and duodenum (principal); K44.9 Diaphragmatic hernia without obstruction or gangrene; K31.9 Disease of stomach and duodenum, unspecified
CPT/HCPCS: 43251; 88305; J7120

== ENCOUNTER 2023-12-21 15:33 | Outpatient (CLI) | payer MEDICARE, OTHER, SELFPAY | END 2023-12-21 23:59 | disposition home or self-care (01) | LOC: RT 15:38 | PROVIDERS: PCP Nurse Practitioner Family; Visit Provider Internal Medicine | DX: R00.2 Palpitations (principal) | CPT/HCPCS: 93270 ==

== ENCOUNTER 2024-01-05 07:32 | Outpatient (CLI) | payer MEDICARE, OTHER, SELFPAY ==
[2024-01-05] VITALS (10 sets, daily range): BP systolic 98–150; BP diastolic 49–83; PULSE 59–73; RESP 16–18; TEMP 36.6; O2SAT 93–99; BMI 30.8
--- NOTE | 2024-01-05 07:49 | CT_ITS ---
APPROVED REPORT Administrative Job Titles: CLINICAL INDICATION Chest Pain TECHNIQUE Image Acquisition: A 128 slice MDCT scanner (Get 2 It Salesa View) was used for data acquisition. A noncontrast coronary calcium scan was performed. A CT attenuation threshold of 130 Hounsfield units (HU) was used for the detection of calcium in contiguous voxels of 1 sq mm in area to be counted as individual lesions. Bolus tracking in the ascending aorta with a threshold of 180 HU was performed. Immediately afterwards, ECG synchronized cardiac CT was then performed from the cardiac base to apex using retrospective gating with ECG tube current modulation. A total of 85 mL of Isovue 370 mg/mL contrast medium was administered at 5 mL/sec followed by a saline flush using a biphasic injection protocol. A tube voltage of 120 KVp was used. The patient received the following medications prior to the cardiac CT. 2.5 mg of intravenous metoprolol 0.8 mg of sublingual nitroglycerin The average heart rate at the time of acquisition was 61 bpm and regular. Image Reconstruction Transaxial images were reconstructed at 0.67 mm slide thickness. Data was reviewed interactively on an advanced workstation capable of 2 and 3-dimensional displays in all conventional reconstruction formats, including multiplanar reformations, maximum intensity projections, curved multiplanar reformations, and volume rendered reconstructions. When applicable, selected routine images describing the relevant coronary anatomy and pathology were saved and sent to PACS. Complications None Technical Quality Overall image quality was good. Coronary artery opacification was adequate. Total DLP (Dose-Length Product) is 1464.6 mGy-cm. The reported value represents the total of one or more individual components during the CT acquisition of this date and at this time, and as such, the same value may appear in more than one CT report depending on the interpreting/reporting physicians. COMPARISON None FINDINGS CT Coronary Calcium Scoring LMA (Left Main Artery) = 209 LAD (Left Anterior Descending) = 154 LCX (Left Coronary Circumflex) = 1 RCA (Right Coronary Artery) = 345 Total Calcium Score = 709 using the AJ-130 method. The observed calcium score of 709 is at 93rd percentile for subjects of the same age, sex, and race/ethnicity. The interpretation of the calcium heart score is based on the following continuum*: 0 = no calcified plaque detected (risk of coronary artery disease is very low ??? less than 5%) 1-10 = calcium detected in extremely minimal levels (risk of coronary diseases is still low ??? less than 10%) 11-100 = mild levels of plaque detected with certainty (mild or minimal narrowing of heart arteries is likely) 101-400 = definite,at least moderate levels of plaque detected (relatively high risk of a heart attack within 3-5 years) >401-999 = extensive levels of plaque detected (high risk of heart attack, high levels of vascular disease are present, high likelihood of at least one significant coronary narrowing) *The calcium heart score quantifies the burden of coronary calcification/plaque in the coronary arteries. The calcium heart score is not able to evaluate the presence or burden of non-calcified (i.e. soft) plaque. There is also identifiable calcification in the aortic valve and ascending and descending thoracic aorta. Coronary CT Angiography The coronary arterial system is right dominant. Quantitative Stenosis Grading: Left Main (LM): The left main originates normally from the left sinus of Valsalva. The LM bifurcates into the left anterior descending artery and left circumflex artery. There is mixed calcified/noncalcified plaque in the proximal LM segment, with up to 50% luminal stenosis. Left Anterior Descending (LAD) and Diagonal Branches: The LAD gives off 3 diagonal branch(es). There is mixed calcified/noncalcified plaque in the proximal LAD segment, with up to 50 to 70% luminal stenosis. There is no evidence of LAD-myocardial bridge. Left Circumflex (LCX) and Obtuse Marginals (OM): The LCX gives off 1 Obtuse Marginal (OM) branch(es). There is mixed calcified/noncalcified plaque in the proximal LCx segment with up to 50 to 70% luminal stenosis. Right Coronary Artery (RCA): The RCA originates normally from the right sinus of Valsalva. The RCA gives off a posterior descending artery (PDA) and posterolateral (PL) branches. There is mixed calcified/noncalcified plaque in the ostial and proximal RCA segment, with up to 25-50% luminal stenosis. Non-Coronary Cardiac Findings: Analysis of the left ventricular (LV) structure and function was performed after 3-D reconstruction of the LV from axial images, with user-corrected automatic contouring for assessment of LV volumes and user-defined reconstruction from oblique planes for measurement of 3-D cardiac structure and function. -The left ventricle systolic function is normal. -There is no left atrial appendage filling defect. Two right pulmonary veins and two left pulmonary veins drain normally into the left atrium. -No pericardial thickening or calcification. -Central and branch pulmonary arteries in the [id number] are unremarkable. -Thoracic aorta within the visualized thoracic aortic-branches in the [id number] is unremarkable. Extracardiac Structures No significant extra-cardiac findings. Note, however, that this study is focused on the cardiac findings. IMPRESSION -Presence of coronary calcification with an Agatston score = 709 using the AJ-130 method. -The observed calcium score of 709 is at 93rd percentile for subjects of the same age, sex, and race/ethnicity. -Moderate multivessel atherosclerotic coronary artery disease, with possible evidence of significant flow-limiting atherosclerosis of the LM, proximal LAD, or LCX segments. -CAD-RADS 4B. Management recommendations per ACC/AHA guidelines*, as clinically appropriate. *Recommendations: CAD RADS 0: Reassurance. Consider non-atherosclerotic causes of chest pain. CAD RADS 1: Consider non-atherosclerotic causes of chest pain. Consider preventive therapy and risk factor modification. CAD RADS 2: Consider non-atherosclerotic causes of chest pain. Consider preventive therapy and risk factor modification, particularly for patients with nonobstructive plaque in multiple segments. CAD RADS 3: Consider further functional testing. Consider symptom-guided anti-ischemic and preventive pharmacotherapy as well as risk factor modification per published guideline statements. CAD RADS 4A: Consider further functional testing or invasive coronary angiography with revascularization per published guideline statements. Consider symptom-guided anti-ischemic and preventive pharmacotherapy as well as risk factor modification per published guideline statements. CAD RADS 4B: Invasive coronary angiography recommended with revascularization per published guideline statements. Consider symptom-guided anti-ischemic and preventive pharmacotherapy as well as risk factor modification per published guideline statements. CAD RADS 5: Consider invasive angiography and/or viability assessment with revascularization per published guideline statements. Consider symptom-guided anti-ischemic and preventive pharmacotherapy as well as risk factor modification per published guideline statements. CRITICAL RESULT None COMMUNICATION Per this written report The coronary and cardiac findings of this CCTA were reviewed, reported, and signed by Roddy Jo MD (Network Contract Manager) Conclusion Electronically signed by : Ghada Jo MD 01/06/2024 12:34:51
--- NOTE | 2024-01-05 07:49 | CA_ITS ---
APPROVED REPORT EXAM: Comprehensive 2D, Doppler, and color-flow Echocardiogram Border Machine Operator: Sienna Wagner RDCS Ht: 5 ft 6 in Wt: 191lbs BSA: 1.96 BP: 136/53 mmHg Indications: CP,SOA,MR,TR M-Mode Dimensions RVDd 0.92 cm (0.9-2.6) LA Diam 3.91 cm (1.9-4.0) LVDd 5.79 cm (3.5-5.7) LVDs 3.94 cm (3.5-5.7) IVSd 0.60 cm (0.6-1.1) PWd 0.88 cm (0.6-1.1) EF (Teich) 59.30% FS 32.00% EDV (Teich) 165.90 mL ESV (Teich) 67.50 mL LV Diastology E Decel Time 183 (160-240 msec) E/A Ratio 1.0 Mitral Valve MV E Max Magdi. 72.0 (40-130 cm/s) MV A Velocity 71.0 (40-130 cm/s) E/A Ratio 1.01 MV PHT 54.0 ms Tricuspid Valve TR P. Velocity 259.00 cm/s RAP Estimate 10.00 mmHg RVSP 36.80 mmHg Left Ventricle The left ventricle is normal size. The left ventricular systolic function is normal. The left ventricular ejection fraction is within the normal range. There is normal left ventricular wall thickness. There is normal LV segmental wall motion. Transmitral Doppler flow pattern suggests impaired LV relaxation. LVEF is 55%. Right Ventricle The right ventricle is normal size. The right ventricular systolic function is normal. Atria The left atrium size is normal. The right atrium size is normal. There is no Doppler evidence of interatrial shunt. Aortic Valve The aortic valve is mildly thickened. There is no aortic valvular stenosis. No aortic regurgitation is present. Mitral Valve The mitral valve leaflets are mildly thickened. No evidence of mitral valve stenosis. Mild mitral regurgitation. Tricuspid Valve The tricuspid valve leaflets are thin and pliable. Mild tricuspid regurgitation. RVSP is 25-30 mmHg. Pulmonic Valve The pulmonary valve is normal in structure. Trace pulmonic regurgitation. Great Vessels The aortic root is normal in size. The ascending aorta is not well-visualized. IVC is normal in size and collapses >50% with inspiration. Pericardium There is no pericardial effusion. Other Information Study Quality: Fair Conclusion Normal biventricular systolic function. Mild MR, mild TR. RVSP 25-30 mmHg. Electronically signed by : Ghada Jo MD 01/10/2024 01:18:47
[2024-01-05 08:37] LABS: Basophils # 0.1 K/mm3 (0-0.2); Basophils % 0.7 % (0.1-2.0); Eosinophils # 0.3 K/mm3 (0.0-0.4); Eosinophils % 4.3 % (0.1-12.0); Hematocrit 41.1 % (37.0-47.0); Hemoglobin 13.2 g/dL (12.2-16.2); Lymphocytes # 2.7 K/mm3 (0.7-4.5); Lymphocytes % 34.8 % (10-50); Mean Corpuscular HGB Conc 32.1 g/dL (31.8-35.4); Mean Corpuscular Hemoglobin 26.4 pg (27.0-31.2); Mean Corpuscular Volume 82.3 fl (81-99); Mean Platelet Volume 9.1 fl (7.4-10.4); Monocytes # 0.5 K/mm3 (0.1-1.0); Neutrophils # 4.1 K/mm3 (1.8-7.8); Neutrophils % 53.2 % (37.0-80.0); Platelet Count 278 K/mm3 (142-424); Red Blood Count 4.99 M/mm3 (4.20-5.40); Red Cell Distribution Width 15.6 % (11.5-17.5); White Blood Count 7.7 K/mm3 (4.8-10.8)
[2024-01-05 08:44] LABS: Chloride 105 mmol/L (98-107); Potassium 4.6 mmoL/L (3.5-5.1); Sodium 138 mmol/L (136-145)
[2024-01-05 08:47] LABS: Anion Gap 10.6 mEq/L (5-15); Blood Urea Nitrogen 18 mg/dl (7-17); Carbon Dioxide 27 mmol/L (22.0-30.0); Creatinine Clearance Estimated 70 mL/min (50-200); Estimated Glomerular Filt Rate 71 ml/min (>60); GFR (African American) 85 ML/MIN (>60)
[2024-01-05 08:48] LABS: Calcium 10.6 mg/dl (8.4-10.2); Glucose 101 mg/dl (74-100)
[2024-01-05] MEDS: NITROGLYCERIN 0.4MG SL TABLET SL (09:28)
[2024-01-05] MEDS: METOPROLOL TARTRATE 5MG/5ML VIAL 5 MG IV (09:35)
[2024-01-05] MEDS: 0.9 % SODIUM CHLORIDE 50 ML VIAL IV (09:46)
[2024-01-05] MEDS: IOPAMIDOL-370 (76%);100ML BOTTLE 85 ML IV (09:46)
[2024-01-05] MEDS: SODIUM CHLORIDE 0.9% 10ML SYR (RAD ONLY) 10 ML IV (09:46)
== END 2024-01-05 23:59 | disposition home or self-care (01) ==
PROVIDERS: PCP Nurse Practitioner Family; Visit Provider Internal Medicine
DX: I34.0 Nonrheumatic mitral (valve) insufficiency (principal); I36.1 Nonrheumatic tricuspid (valve) insufficiency; I10 Essential (primary) hypertension; R00.2 Palpitations; R07.9 Chest pain, unspecified; R06.00 Dyspnea, unspecified
CPT/HCPCS: 36415; 75574; 80048; 85025; 93306; Q9967

== ENCOUNTER 2024-02-25 07:27 | Day surgery (SDC) | payer MEDICARE, OTHER, SELFPAY ==
[2024-02-22 14:14] VITALS: BMI 30.7
[2024-02-25 07:48] VITALS: BP 142/74; PULSE 69; RESP 18; TEMP 36.1; O2SAT 99
[2024-02-25] MEDS: LACTATED RINGERS 1000ML 1,000 ML 25 ML IV (07:54)
--- NOTE | 2024-02-25 08:42 | P.HP_ITS ---
HPI HPI HPI: Patient has had numerous EGDs in the past. Initially had EGD on 08/03/2006 at which time she had large polypoid lesions in the prepyloric location. These have repeatedly been hyperplastic. She has occasionally developed symptoms consistent with partial gastric outlet obstruction characterized by bloating and reflux. She does have a known moderately large hiatal hernia. 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 These were excised using hot snare and retrieved with a Callaway net. It was felt that all of the hyperplastic tissue was unable to be removed. I had considered possible gastroenterology referral for second opinion and possible recommendations for additional therapy. However, at this time plan was made for early interval follow-up upper endoscopy. Pending the findings consideration may be given for gastroenterology referral. [facility] Disclaimer: The information contained in this section may have been updated after the patient was seen, as this information can be updated by other users. 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 AHI 4, RDI 11. Intolerance to CPAP, no interest in other treatment options, working on lifestyle modifications. Overnight oximetry did not indicate hypoxemia or hypercapnia. Restless sleeper Daytime somnolence Snoring Headache Nearly asymptomatic as long as she is taking amitriptyline 25 mg p.o. night ly. Recurrent symptoms since running out of medication, did not notify clinic. Reluctant to consider changing medications despite of MCI. Surgical History History of trabeculectomy bilateral History of total knee replacement jose martin knee replacement History of surgery jaw surgery History of esophagogastroduodenoscopy (EGD) History of cataract surgery History of cholecystectomy Hx of appendectomy H/O total hysterectomy Family History Other Cancer Coronary artery disease Diabetes Heart attack Hyperlipidemia Hypertension Stroke Social History (Updated 02/25/24 @ 07:49 by Delilah Dos Santos RN) Smoking Status: Former smoker years smoked: 1 smoking status stop date: 1994 second hand exposure: No alcohol intake: never substance use type: denies use current occupational status: retired Travel in the last 8 weeks: None household members: spouse housing: house marital status: number of children: 4 current occupation: [employer] current occupational exposures/hazards: Yes caffeine: Yes Other Medical History Have you received the Flu Vaccine for this season: No Have you received the Pneumonia Vaccine: No Meds Home Medications and Allergies Home Medications ?Medication ?Instructions ?Recorded ?Confirmed ?Type latanoprost 0.005 % eye drops 2.5 ml ophthalmic (eye) DAILY 04/26/17 02/25/24 History Glaucoma multivitamin 1 tab PO DAILY Supplement 12/01/21 02/25/24 History rabeprazole 20 mg tablet,delayed 20 mg PO DAILY Reflux/Acid reflux 01/16/22 02/25/24 History release (AcipHex) hydroxyzine HCl 25 mg tablet 25 mg PO DAILY PRN antihistamine 06/17/23 02/25/24 Rx #30 tabs brimonidine 0.2 %-timolol 0.5 % 3 drp ophthalmic (eye) TID 10/12/23 02/22/24 History eye drops (Combigan) brinzolamide 1 % eye 1 drp ophthalmic (eye) BID 10/12/23 02/22/24 History drops,suspension (Azopt) hydrocodone 7.5 mg-acetaminophen 1 tab PO TID PRN Pain, Moderate 10/12/23 02/25/24 History 325 mg tablet pramipexole 0.25 mg tablet 0.25 mg PO HS RLS 90 days #90 tabs 10/12/23 02/22/24 Rx amitriptyline 25 mg tablet 25 mg PO HS headache 90 days #90 11/15/23 02/25/24 Rx tabs bisoprolol fumarate 5 mg tablet 5 mg PO DAILY BP #90 tabs 01/17/24 02/25/24 Rx fenofibrate micronized 134 mg 134 mg PO DAILY Cholesterol 90 01/17/24 02/22/24 Rx capsule days #90 caps hydrochlorothiazide 12.5 mg tablet 12.5 mg PO DAILY BP #90 tabs 01/17/24 02/22/24 Rx losartan 25 mg tablet 25 mg PO DAILY 90 days #90 tabs 01/17/24 02/22/24 Rx pantoprazole 40 mg tablet,delayed 40 mg PO DAILY #90 tabs 24 02/22/24 Rx release vilazodone 40 mg tablet (Viibryd) 40 mg PO DAILY #90 tabs 01/28/24 02/22/24 Rx aspirin 81 mg tablet,delayed 81 mg PO DAILY #30 tabs 02/01/24 02/25/24 Rx release (Adult Aspirin Regimen) bimatoprost 0.03 % eye drops 1 drp Eye-Both DAILY 02/01/24 02/22/24 History methimazole 10 mg tablet 10 mg PO DAILY 02/01/24 02/22/24 History aripiprazole 10 mg tablet 10 mg PO HS #90 tabs 02/14/24 02/25/24 Rx sertraline 100 mg tablet (Zoloft) 100 mg PO DAILY 90 days #90 tabs 02/14/2406/12 Rx rosuvastatin 20 mg tablet (Crestor) 10 mg PO DAILY 02/25/24 02/25/24 History New Prescriptions to Start Prescriptions: Allergies Allergy/AdvReac Type Severity Reaction Status Date / Time naproxen (From ALEVE) Allergy Severe S-DIFF. Verified 02/25/24 07:39 BREATHING Exam Data for Last 24 hours Vital signs and Labs for Last 24 Hours: Temp Pulse Resp BP Pulse Ox O2 Del Method 97.0 F L 69 18 142/74 H 99 Room Air 02/25/24 07:48 02/25/24 07:48 02/25/24 07:48 02/25/24 07:48 02/25/24 07:48 02/25/24 07:48 I & O for Last 24 hours: Intake & Output 02/22/24 02/23/24 02/24/24 02/25/24 11:59 11:59 11:59 11:59 Weight 190 lb Constitutional Constitutional: no acute distress *Routine HEENT Exam Head: Present normocephalic Eye: Present EOMI ENT: Present mucous membranes moist *Routine Respiratory Exam Respiratory: Present CTA bilaterally *Routine Cardiovascular Exam Cardiovascular: Present RRR *Routine Abdominal Exam Abdominal: Present soft *Routine Rectal Exam Rectal:: deferred *Routine Genitalia Exam Genitalia:: deferred Assessment and Plan *Assessment and plan (1) Gastric polyps: Status: Acute Category: Medical Code(s): K31.7 - Polyp of stomach and duodenum Plan Plan to proceed with upper endoscopy
[2024-02-25 09:04] VITALS: O2SAT 100
[2024-02-25 09:31] VITALS: BP 109/62; PULSE 63; RESP 16; TEMP 36.2; O2SAT 92
--- NOTE | 2024-02-25 09:32 | [facility].SCOPE ---
Procedure: Date: 02/25/24 Patient Date of :: 1950 Procedure Performed:: Esophagogastroduodenoscopy with biopsies and polypectomy using hot snare Indications:: Patient presents for follow-up endoscopy. Patient has had numerous EGDs in the past. Initially had EGD on 08/03/2006 at which time she had large polypoid lesions in the prepyloric location. These have repeatedly been hyperplastic. She has occasionally developed symptoms consistent with partial gastric outlet obstruction characterized by bloating and reflux. She does have a known moderately large hiatal hernia. 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 These were excised using hot snare and retrieved with a Callaway net. It was felt that all of the hyperplastic tissue was unable to be removed. I had considered possible gastroenterology referral for second opinion and possible recommendations for additional therapy. However, at this time plan was made for early interval follow-up upper endoscopy. Pending the findings consideration may be given for gastroenterology referral. Performing Provider:: Isaac Golden MD Referring Provider:: Mackenzie Amaya Sedation:: MAC sedation Procedure:: Patient history was obtained and appropriate physical examination was performed. Patient's medications and allergies were reviewed. Informed consent was obtained after explaining the benefits, alternatives, and risks of the procedure including, but not limited to, bleeding, perforation, missed lesions, and adverse reaction to anesthesia medications. Patient was transported to endoscopy procedure room. Patient was connected to monitoring devices. Throughout the procedure the patient's blood pressure, pulse, and oxygen saturations were monitored continuously. Patient identification and planned procedure were verified by the staff. Patient was positioned in lateral decubitus position. Olympus endoscope was inserted via the oropharynx. Esophagus was cannulated. There was some tortuosity to the esophagus consistent with esophageal dysmotility. Gastroesophageal junction was encountered at 35 cm. There was a moderate sliding hiatal hernia. Stomach was cannulated and insufflated. Retroflexion revealed a hiatal hernia as noted. There is some diffuse gastropathy/gastritis. Nonerosive. In the prepyloric location there were several polypoid lesions, approximately 4 in total. These were removed using hot snare. There may have been some residual polypoid tissue but due to the edema it was difficult to determine. These were removed after maceration using Callaway net. These were sent as prepyloric polyps. Endoscope was withdrawn into the distal esophagus and several biopsies were obtained at the gastroesophageal junction. There were a couple biopsies obtained of the distal esophagus. . Findings:: Esophageal dysmotility Moderate sliding hiatal hernia Diffuse nonerosive gastritis Prepyloric polypoid lesions Recommendations:: Follow-up on histopathology. I may consider gastroenterology evaluation for possible alternate therapy. Complications:: None immediately apparent Estimated blood obtained (mL): 2 Colonoscopy Component Colonoscopy Component Was a colonoscopy performed during today's procedure?: No
[2024-02-25 09:41] VITALS: BP 112/67; PULSE 65; RESP 16; O2SAT 94
[2024-02-25 09:51] VITALS: BP 119/62; PULSE 61; RESP 16; O2SAT 94
[2024-02-25 10:01] VITALS: BP 114/62; PULSE 63; RESP 18; O2SAT 94
== END 2024-02-25 10:01 | disposition home or self-care (01) ==
PROVIDERS: PCP Nurse Practitioner Family; Visit Provider Surgery
PROC: 0DJ08ZZ Inspection of Upper Intestinal Tract, Via Natural or Artificial Opening Endoscopic (ICD-10-PCS; CPT 43235; principal; 2024-02-25 08:30)
DX: K31.7 Polyp of stomach and duodenum (principal); K22.4 Dyskinesia of esophagus; K44.9 Diaphragmatic hernia without obstruction or gangrene; K29.70 Gastritis, unspecified, without bleeding
CPT/HCPCS: 43239; 43251; J2704; J7120

== ENCOUNTER 2024-04-21 13:53 | Emergency (ER) | payer MEDICARE, OTHER, SELFPAY ==
[2024-04-21] VITALS (9 sets, daily range): BP systolic 130–175; BP diastolic 64–104; PULSE 83–124; RESP 16–19; TEMP 36.6–36.8; O2SAT 92–97; BMI 29.8
--- NOTE | 2024-04-21 15:01 | PC.NURSE ---
Patient was pulled into triage for vital sign reassessment. Informed patient she would be placed in a room as soon as one became available. Patient acknowledged understanding. Denies any changes since prior assessment. Ambulated to triage room and back to lobby with smooth steady gait. No distress noted.
--- NOTE | 2024-04-21 15:13 | PC.NURSE ---
Pt roomed to #1 @[id number]
--- NOTE | 2024-04-21 15:14 | PC.NURSE ---
ASSESSMENT when moved to pt room Pt c/o R lower back pain that radiates to her R groing and RLE. pt states the pain is 10/10 and dull/aching/pressure in nature. pt states she had an epidural for chronic back pain about 2wks ago at pain management. This has been ongoing since. pt has not notified pain management. worse with movement. pain improves when lying down.
--- NOTE | 2024-04-21 15:29 | XR_ITS ---
FINAL REPORT CLINICAL HISTORY: pain in groin, difficulty walking COMPARISON: None FINDINGS: RIGHT HIP Two views of the right hip with an AP view of the pelvis demonstrate no acute fracture or dislocation. The joint spaces appear normal. The visualized bony structures are well aligned. No soft tissue abnormality is seen. IMPRESSION: No acute bony abnormality. Reviewed, Interpreted and Dictated by Ángel Alanis MD Transcribed by Jasmina Esposito Authenticated and [facility]
--- NOTE | 2024-04-21 15:29 | XR_ITS ---
PROCEDURE INFORMATION: Exam: XR Right Femur Exam date and time: 04/21/2024 3:43 PM Age: 73 years old Clinical indication: Pain; Hip; Right; Additional info: Pain in groin, difficulty walking TECHNIQUE: Imaging protocol: Radiologic exam of the right femur. Views: 2 views. COMPARISON: CR XR HIP RT 2-3V W/PELVIS 04/21/2024 3:43 PM FINDINGS: Bones/joints: Complete right knee arthroplasty in adequate alignment and without definitive complications. Partially seen [id number] right hip osteoarthritis. No acute fracture. Soft tissues: Unremarkable. IMPRESSION: Partially seen [id number] right hip osteoarthritis. Consider correlation with dedicated right hip films.
--- NOTE | 2024-04-21 15:29 | CT_ITS ---
FINAL REPORT TECHNIQUE: Axial images were obtained of the lumbar spine by computed tomography. Coronal and sagittal reconstruction process performed. This study was performed with techniques to keep radiation doses as low as reasonably achievable (ALARA). Individualized dose reduction techniques using automated exposure control or adjustment of mA and/or kV according to the patient''s size were employed. CLINICAL HISTORY: acute low back pain after recent epidural FINDINGS: There is advanced disc space narrowing at L5-S1 with endplate sclerosis. There is anterior and posterior osteophyte formation. T12-L1: No significant disc bulge or protrusion. L1-2: No significant disc bulge or protrusion. L2-3: Mild diffuse disc bulge with mild bilateral neuroforaminal narrowing. L3-4: Mild diffuse disc bulge with mild bilateral neuroforaminal narrowing. L4-5: Mild diffuse disc bulge with mild bilateral neuroforaminal narrowing. L5-S1: Large diffuse disc bulge with endplate hypertrophy. High-grade bilateral neuroforaminal narrowing with moderate to high-grade spinal canal compromise. IMPRESSION: Multilevel diffuse disc bulges, most evident at L5-S1 where there is moderate to high grade spinal and high-grade bilateral neuroforaminal narrowing. Reviewed, Interpreted and Dictated by Ángel Alanis MD Transcribed by Niesha Triana Authenticated and . [facility]
[2024-04-21] MEDS: LIDOCAINE 5% TRANSDERMAL PATCH 1 EACH TP (15:38)
[2024-04-21] MEDS: diazePAM 10MG/2ML SYRINGE 2.5 MG IV ×2 (15:38→17:38)
[2024-04-21] MEDS: ACETAMINOPHEN 500MG TAB 1000 MG PO (15:38)
[2024-04-21 15:40] LABS: Basophils % 0.3 % (0.1-2.0); Eosinophils # 0.2 K/mm3 (0.0-0.4); Eosinophils % 1.5 % (0.1-12.0); Hematocrit 43.5 % (37.0-47.0); Hemoglobin 13.6 g/dL (12.2-16.2); Lymphocytes # 2.4 K/mm3 (0.7-4.5); Lymphocytes % 20.9 % (10-50); Mean Corpuscular HGB Conc 31.3 g/dL (31.8-35.4); Mean Corpuscular Hemoglobin 25.6 pg (27.0-31.2); Mean Corpuscular Volume 81.9 fl (81-99); Mean Platelet Volume 10.6 fl (7.4-10.4); Monocytes % 8.8 % (1.7-9.3); Neutrophils # 7.8 K/mm3 (1.8-7.8); Neutrophils % 68.2 % (37.0-80.0); Platelet Count 297 K/mm3 (142-424); Red Blood Count 5.31 M/mm3 (4.20-5.40); Red Cell Distribution Width 15.9 % (11.5-17.5); White Blood Count 11.4 K/mm3 (4.8-10.8)
--- NOTE | 2024-04-21 15:44 | PC.NURSE ---
had to get 2 more tylenol dropped them on floor
[2024-04-21] MEDS: predniSONE 20MG TAB 40 MG PO (15:45)
--- NOTE | 2024-04-21 15:48 | HMH.EDGENADL ---
Discharge Plan Disposition Patient Disposition: Home, Self-Care Condition: Good Prescriptions Prescriptions: New methimazole 10 mg tablet 20 mg PO DAILY Qty: 60 0RF lidocaine [Lidoderm] 5 % adhesive patch,medicated 1 patch topical DAILY Qty: 15 0RF Rx Instructions: leave on most painful area for up to 12 hrs methocarbamol 750 mg tablet 750 mg PO Q8H PRN (Reason: pain) Qty: 20 0RF prednisone 20 mg tablet 40 mg PO DAILY 3 Days Qty: 6 0RF No Action multivitamin Tablet 1 tab PO DAILY bimatoprost 0.03 % drops 1 drp Eye-Both DAILY methimazole 10 mg tablet 10 mg PO DAILY bisoprolol fumarate 5 mg tablet 5 mg PO DAILY Qty: 90 3RF fenofibrate micronized 134 mg capsule 134 mg PO DAILY 90 Days Qty: 90 3RF hydrochlorothiazide 12.5 mg tablet 12.5 mg PO DAILY Qty: 90 3RF Rx Instructions: TAKE 1 TABLET DAILY losartan 25 mg tablet 25 mg PO DAILY 90 Days Qty: 90 1RF pantoprazole 40 mg tablet,delayed release (DR/EC) 40 mg PO DAILY Qty: 90 3RF aripiprazole 10 mg tablet 10 mg PO HS Qty: 90 0RF sertraline [Zoloft] 100 mg tablet 100 mg PO DAILY 90 Days Qty: 90 3RF amitriptyline 25 mg tablet 25 mg PO HS MDD 25 mg 90 Days Qty: 90 3RF Rx Instructions: 1 hour before bedtime brinzolamide [Azopt] 1 % drops,suspension 1 drp ophthalmic (eye) BID hydrocodone-acetaminophen 7.5-325 mg tablet 1 tab PO TID PRN (Reason: Pain, Moderate) brimonidine-timolol [Combigan] 0.2-0.5 % drops 3 drp ophthalmic (eye) TID pramipexole 0.25 mg tablet 0.25 mg PO HS 90 Days Qty: 90 3RF Rx Instructions: May increase up to 2 tabs 2 hours before bedtime hydroxyzine HCl 25 mg tablet 25 mg PO DAILY PRN (Reason: antihistamine) Qty: 30 2RF vilazodone [Viibryd] 40 mg tablet 40 mg PO DAILY Qty: 90 1RF Rx Instructions: must administer with a meal/food latanoprost 2.5 ML drops 2.5 ml OP DAILY rabeprazole [AcipHex] 20 mg tablet,delayed release (DR/EC) 20 mg PO DAILY rosuvastatin [Crestor] 20 mg tablet 10 mg PO DAILY Referrals Follow up/Referrals: Shankar Hayden MD [Staff Physician] - See instructions Shravan Villatoro DO [Staff Physician] - See instructions Gricelda Amaya APRN [Primary Care Provider] - See instructions Activity Restrictions/Add. Instructions Additional Instructions/Restrictions: You were evaluated in the emergency department today. At this time, x-rays and CT scans are reassuring with arthritis but no obvious acute broken bone. Please follow-up closely with orthopedics for reassessment of your pain as well as with your primary management team. 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 Of note, your thyroid studies show that your thyroid levels are very high still. I am increasing her methimazole from 10 mg daily to 20 mg daily. Please take this as prescribed and follow-up with your primary care provider on Wednesday for reassessment of your thyroid hormones. Return to the emergency department right away for new or worsening symptoms. Clinical Impressions Clinical Impression: Hyperthyroidism, Acute low back pain with sciatica Instructions Patient Instructions: DI for Low Back Pain, DI for Back Pain With Sciatica Print Language Print Language: Wolof Discharge ED Provider: Destini Mcclellan General Adult HPI General Chief complaint: Back Pain/Injury Stated complaint: Pain going from low back through groin area-no acc Time Seen by Provider: 04/21/24 15:13 Mode of Arrival: Ambulatory Limitations: No Limitations Description of Symptoms (Recalled from ER Triage Doc. by RN): Patient states she has a history of chronic back pain. States she had an epidural two weeks ago with pain management. States she has been hurting since. Denies loss of control of bowel and bladder. Patient states, It hurts all the way down my right leg. States that pain is new since the epidural. History of Present Illness HPI narrative: This patient is a 73-year-old female with a history of chronic back pain, hypertension, hyperlipidemia, hyperthyroidism, DMITRY, GERD, major depressive disorder, restless leg syndrome presented to the emergency department for evaluation concern for low back pain radiating into her right groin. Patient states that she has a history of chronic low back pain, but has never had issues like this in the past. She notes she had an epidural 2 weeks ago in [place], and her pain has been much worse. She states that it feels that she is having muscle spasms in her low back that go into her groin, and she is having to limp instead of walk normally. No numbness, tingling, saddle anesthesia, urinary retention, urinary incontinence, fecal incontinence, or other concerns. No fevers, chills, or infectious symptoms. No recent falls or injury noted. Related Data Home Medications ?Medication ?Instructions ?Recorded ?Confirmed latanoprost 0.005 % eye drops 2.5 ml ophthalmic (eye) DAILY 04/26/17 04/21/24 Glaucoma multivitamin 1 tab PO DAILY Supplement 12/01/21 04/21/24 rabeprazole 20 mg tablet,delayed 20 mg PO DAILY Reflux/Acid reflux 01/16/22 04/21/24 release (AcipHex) brimonidine 0.2 %-timolol 0.5 % 3 drp ophthalmic (eye) TID 10/12/23 04/21/24 eye drops (Combigan) brinzolamide 1 % eye 1 drp ophthalmic (eye) BID 10/12/23 04/21/24 drops,suspension (Azopt) hydrocodone 7.5 mg-acetaminophen 1 tab PO TID PRN Pain, Moderate 10/12/23 04/21/24 325 mg tablet bimatoprost 0.03 % eye drops 1 drp Eye-Both DAILY 02/01/24 04/21/24 methimazole 10 mg tablet 10 mg PO DAILY 02/01/24 04/21/24 rosuvastatin 20 mg tablet (Crestor) 10 mg PO DAILY 02/25/24 04/21/24 Previous Rx's ?Medication ?Instructions ?Recorded hydroxyzine HCl 25 mg tablet 25 mg PO DAILY PRN antihistamine 06/17/23 #30 tabs pramipexole 0.25 mg tablet 0.25 mg PO HS RLS 90 days #90 tabs 10/12/23 amitriptyline 25 mg tablet 25 mg PO HS headache 90 days #90 11/15/23 tabs bisoprolol fumarate 5 mg tablet 5 mg PO DAILY BP #90 tabs 01/17/24 fenofibrate micronized 134 mg 134 mg PO DAILY Cholesterol 90 01/17/24 capsule days #90 caps hydrochlorothiazide 12.5 mg tablet 12.5 mg PO DAILY BP #90 tabs 01/17/24 losartan 25 mg tablet 25 mg PO DAILY 90 days #90 tabs 01/17/24 pantoprazole 40 mg tablet,delayed 40 mg PO DAILY #90 tabs 01/17/24 release vilazodone 40 mg tablet (Viibryd) 40 mg PO DAILY #90 tabs 01/28/24 aripiprazole 10 mg tablet 10 mg PO HS #90 tabs 02/14/24 sertraline 100 mg tablet (Zoloft) 100 mg PO DAILY 90 days #90 tabs 02/14/24 lidocaine 5 % topical patch 1 patch topical DAILY #15 ea 04/21/24 (Lidoderm) methimazole 10 mg tablet 20 mg (2 x 10 mg) PO DAILY #60 tabs 04/21/24 methocarbamol 750 mg tablet 750 mg PO Q8H PRN pain #20 tabs 04/21/24 prednisone 20 mg tablet 40 mg (2 x 20 mg) PO DAILY 3 days 04/21/24 #6 tabs Allergies Allergy/AdvReac Type Severity Reaction Status Date / Time naproxen (From ALEVE) Allergy Severe S-DIFF. Verified 04/21/24 15:17 BREATHING [facility] Disclaimer: The information contained in this section may have been updated after the patient was seen, as this information can be updated by other users. Medical History DDD (degenerative disc disease), lumbar Lumbar stenosis Cancer Hyperlipemia Hypertension Sleep apnea History of COVID-19 Endometriosis Sinus headache History of back pain Fibromyalgia History of gastroesophageal reflux (GERD) Hypothyroid Glaucoma History of cataract Allergies Major depressive disorder Aftercare following bilateral knee joint replacement surgery DMITRY (obstructive sleep apnea) Restless sleeper Daytime somnolence Snoring Headache Surgical History History of trabeculectomy History of total knee replacement History of surgery History of esophagogastroduodenoscopy (EGD) History of cataract surgery History of cholecystectomy Hx of appendectomy H/O total hysterectomy Family History Other Cancer Coronary artery disease Diabetes Heart attack Hyperlipidemia Hypertension Stroke Social History Smoking Status: Never smoker years smoked: 1 smoking status stop date: 1994 second hand exposure: No alcohol intake: never substance use type: denies use current occupational status: retired Travel in the last 8 weeks: None household members: spouse housing: house marital status: number of children: 4 current occupation: [employer] current occupational exposures/hazards: Yes caffeine: Yes Have you lived/traveled outside [place] in past 30 days?: No Contact w/someone who lives/traveled outside US past 30 days?: No Exposure to someone with infectious disease in past 14 days?: No Do you have a fever (greater than 100.4 F or 38 C)?: No Have you tested positive for COVID-19: No Exposed to someone with COVID-19 in past 14 days?: No Do you have a sore throat?: No Do you have a cough?: No Do you have any weakness?: No Do you have any diarrhea?: No Are you experiencing any unusual bleeding?: No Do you have any muscle aches/pain?: No Do you have any abdominal pain?: No Are you experiencing loss of taste or smell?: No Other Medical History Have you received the Flu Vaccine for this season: No Have you received the Pneumonia Vaccine: No ROS Obtained: Yes All systems reviewed & no additional complaints except as documented Physical Exam General General appearance: alert and in no apparent distress Comment: Uncomfortable appearing, tearful Head Head exam: atraumatic and normocephalic Eye Eye exam: Present normal appearance, PERRL and EOMI ENT ENT exam: Present normal exam, normal oropharynx, mucous membranes moist and normal external ear exam Neck Neck exam: Present normal inspection, full ROM and trachea midline; Absent tenderness Chest Chest inspection: Present normal inspection and symmetric chest wall rise; Absent tenderness Respiratory Respiratory exam: Present normal lung sounds bilaterally; Absent respiratory distress, wheezes, stridor or accessory muscle use Cardiovascular Cardiovascular exam: Present normal rhythm and tachycardia Abdominal Exam Abdominal exam: Present soft; Absent distention, tenderness or guarding Extremities Exam Extremities exam: Present full ROM, tenderness (Right groin), normal capillary refill and other (All compartments soft, neurovascularly intact distally); Absent edema Back Exam Back exam: Present tenderness (Lumbar spine, paraspinal muscles, especially right side); Absent full ROM Neurological Exam Neurological exam: Present alert, oriented X3, CN II-XII intact and normal gait; Absent motor sensory deficit Psychiatric Psychiatric exam: Present normal affect and normal mood Skin Skin exam: Present warm and dry Medical Decision Making Medical Records Medical records reviewed: Yes I reviewed the patient's medical records. Screening: Per USPSTF and CDC recommendations, given the prevalence of disease in our region, it is our hospital?s policy to screen for HIV and viral Hepatitis for all patients aged 18 and over and those with ongoing risk factors. Mervin Inquiry Pt receiving controlled substance: No Vital Signs: 04/21/24 13:56 04/21/24 15:02 04/21/24 15:17 Temperature 98.3 F 98 F Temperature Source Oral Pulse Rate 124 H 112 H Pulse Rate [Radial] 123 H Respiratory Rate 18 16 16 Blood Pressure 132/90 175/104 H Blood Pressure [Right Arm] 161/104 H Blood Pressure Mean [Right Arm] 123 02 Sat by Pulse Oximetry 95 97 96 Oxygen Delivery Method Room Air Room Air 04/21/24 15:30 04/21/24 16:00 04/21/24 16:30 Temperature Temperature Source Pulse Rate 119 H 115 H 112 H Pulse Rate [Radial] Respiratory Rate Blood Pressure 154/100 H 146/86 H 150/90 H Blood Pressure [Right Arm] Blood Pressure Mean [Right Arm] 02 Sat by Pulse Oximetry 93 L 92 L 95 Oxygen Delivery Method Room Air Room Air Room Air 04/21/24 17:00 04/21/24 17:30 04/21/24 18:33 Temperature 97.8 F Temperature Source Pulse Rate 103 H 83 83 Pulse Rate [Radial] Respiratory Rate 16 19 16 Blood Pressure 138/94 H 162/84 H 130/64 Blood Pressure [Right Arm] Blood Pressure Mean [Right Arm] 02 Sat by Pulse Oximetry 94 L 94 L Oxygen Delivery Method Room Air Room Air Lab Data Lab results reviewed: Yes I reviewed the patient's lab results. Lab Results 04/21/24 15:34: WBC 11.4 H, RBC 5.31, Hgb 13.6, Hct 43.5, MCV 81.9, MCH 25.6 L, MCHC 31.3 L, RDW 15.9, Plt Count 297, MPV 10.6 H, Neut % (Auto) 68.2, Lymph % (Auto) 20.9, Starke % (Auto) 8.8, Eos % (Auto) 1.5, Baso % (Auto) 0.3, Neut # (Auto) 7.8, Lymph # (Auto) 2.4, Starke # (Auto) 1.0, Eos # (Auto) 0.2, Baso # (Auto) 0.0, Sodium 140, Potassium 4.6, Chloride 103, Carbon Dioxide 27, Anion Gap 14.6, BUN 14, Creatinine 0.80, Estimated Creat Clear 67, Estimated GFR 71, Est GFR ( Amer) 85, Glucose 112 H, Calcium 10.8 H, Total Bilirubin 0.4, AST 40 H, ALT 38, Alkaline Phosphatase 83, Total Protein 7.6, Albumin 4.6, Globulin 3.0, Albumin/Globulin Ratio 1.5, TSH < 0.02 L, Thyroxine (T4) 18.1 H 04/21/24 16:53: Urine Color Yellow, Urine Appearance Clear, Urine pH 5.5, Ur Specific Rigby >= 1.030, Urine Protein Trace, Urine Glucose (UA) Negative, Urine Ketones Trace, Urine Blood Negative, Urine Nitrate Negative, Urine Bilirubin 2+ A, Urine Urobilinogen 1.0, Ur Leukocyte Esterase Negative, Urine RBC None, Urine WBC Occasional, Ur Squamous Epith Cells 3-5, Urine Bacteria 2+, Urine Mucus 2+ 04/21/24 15:34 04/21/24 15:34 Orders (Tests/Meds): ED MEDICATIONS Discontinued Medications Generic Name Dose Route Start Last Admin Trade Name Pierre PRN Reason Stop Dose Admin Acetaminophen 1,000 mg 04/21/24 15:30 04/21/24 15:38 Acetaminophen 500mg Tab PO 04/21/24 15:31 1,000 mg ONCE ONE Administration Diazepam 2.5 mg 04/21/24 15:30 04/21/24 15:38 Diazepam 10mg/2ml Syringe IV 04/21/24 15:31 2.5 mg ONCE ONE Administration Diazepam 2.5 mg 04/21/24 17:31 04/21/24 17:38 Diazepam 10mg/2ml Syringe IV 04/21/24 17:32 2.5 mg ONCE ONE Administration Lidocaine 1 each 04/21/24 15:30 04/21/24 15:38 Lidocaine 5% Transdermal Patch TP 04/21/24 15:31 1 each ONCE ONE Administration Oxycodone HCl 5 mg 04/21/24 17:32 04/21/24 17:38 Oxycodone 5mg Immediate Release Tablet PO 04/21/24 17:33 5 mg ONCE ONE Administration Prednisone 40 mg 04/21/24 15:39 04/21/24 15:45 Prednisone 20mg Tab PO 04/21/24 15:40 40 mg ONCE ONE Administration ORDERS Category Date Time Status CT lumbar spine wo con Stat Cat Scan 04/21/24 15:29 Completed Femur XR right 2 views [XR femur RT 2V] Stat Exams 04/21/24 15:29 Completed Hip XR right minimum 2 views [XR hip RT 2-3V w/pelvis] Exams 04/21/24 15:29 Completed Stat Complete Blood Count Auto Diff Stat Lab 04/21/24 15:34 Completed Comprehensive Metabolic Panel Stat Lab 04/21/24 15:34 Completed T4 (Thyroxine) Stat Lab 04/21/24 15:34 Completed TSH [Thyroid Stimulating Hormone] Stat Lab 04/21/24 15:34 Completed UA [Urinalysis and Microscopic] Stat Lab 04/21/24 16:53 Completed Urine Culture Stat Micro 04/21/24 16:53 Received ECG Data Tracing #1: I reviewed this ECG and interpreted as documented below: Sinus tachycardia with a ventricular of [address] changes concerning for ischemia. Normal axis and intervals. ECG initial impression date: 04/21/24 ECG initial impression time: 15:54 Medical Decision Narrative: In summary, this patient is a 73-year-old female presenting to the Emergency Department for evaluation of low back pain and right groin pain. Differential diagnoses considered include but are not limited to fracture, contusion, strain/sprain, disc herniation, lumbar radiculopathy, complication of recent epidural such as epidural hematoma, cauda equina syndrome, spinal cord compression. Ruling out the most morbid conditions drove assessment. It should be noted patient's history includes chronic back pain, degenerative disc disease, DMITRY, hypertension, hyperlipidemia, hypothyroidism, mood disorder which may or may not be at goal therapy. This complicates all aspects of care by increasing patient's risk for morbidity. On exam, the patient is lying in bed, uncomfortable appearing, tearful. She is hypertensive and tachycardic, I suspect related to pain. She is completely neurologically intact in her lower extremities with no alarm findings/symptoms suggestive of cauda equina syndrome or spinal cord compression. She did ambulate in here. She is afebrile and is had no fevers or infectious symptoms. She is neurovascularly intact in her right lower extremity. Workup included CT lumbar spine, x-ray, basic labs, EKG given tachycardia. She was given IV Valium, oral Tylenol, topical Lidoderm patch, oral prednisone for symptomatic improvement, as she has an NSAID intolerance. I independently interpreted CT scan and x-ray prior to the radiologist read and noted no obvious acute fracture. Please see their read for final interpretation. Labs were obtained that demonstrated persistent hyperthyroidism despite recent increase in methimazole per the patient. She notes she is on 10 mg daily. She does not complain of any significant symptoms of hyperthyroidism necessarily, as I do not feel that the back pain and hip pain are related. She does have degenerative changes noted on the imaging, but no acute injury. She had good pain relief after administration of oxycodone, prednisone, Lidoderm, Valium, and Tylenol. She is ambulatory and remains neurologically intact in her lower extremities, so I feel she is appropriate for discharge home with instructions for close follow-up with her pain management team as well as her primary care provider. I did increase her methimazole given her persistent hyperthyroidism and advised that she follow-up very closely for recheck of this as well. She was also given prescriptions for prednisone, Lidoderm patches, and Robaxin. Strict return precautions were given and she was discharged after all questions were answered. Critical Care Critical Care Time Critical Care Time: No
[2024-04-21 15:51] LABS: Alanine Aminotransferase 38 U/L (12-78); Albumin Level 4.6 g/dl (3.5-5.0); Albumin/Globulin Ratio 1.5 (1.1-1.8); Alkaline Phosphatase 83 U/L (38-126); Anion Gap 14.6 mEq/L (5-15); Aspartate Amino Transferase 40 U/L (14-36); Bilirubin,Total 0.4 mg/dl (0.2-1.3); Blood Urea Nitrogen 14 mg/dl (7-17); Calcium 10.8 mg/dl (8.4-10.2); Carbon Dioxide 27 mmol/L (22.0-30.0); Chloride 103 mmol/L (98-107); Creatinine Clearance Estimated 67 mL/min (50-200); Estimated Glomerular Filt Rate 71 ml/min (>60); GFR (African American) 85 ML/MIN (>60); Glucose 112 mg/dl (74-100); Potassium 4.6 mmoL/L (3.5-5.1); Sodium 140 mmol/L (136-145); Total Protein,Serum 7.6 g/dl (6.3-8.2)
--- NOTE | 2024-04-21 15:53 | ECG_ITS ---
APPROVED REPORT Exam: Resting ECG HR:113 bpm ECG Measurements Heart Rate 113 AXES MA 136 P 50 QRSd 85 QRS 17 QT 294 T 45 QTc 361 Conclusion SINUS TACHYCARDIA WITH OCCASIONAL VENTRICULAR PREMATURE COMPLEXES LOW QRS VOLTAGE IN PRECORDIAL LEADS [QRS DEFLECTION < 1.0 mV IN CHEST LEADS] Electronically signed by : LEIGHANN BRITO, 04/22/2024 00:16:50
[2024-04-21 16:08] LABS: T4 (Thyroxine) 18.1 ug/dl (5.53-11.0)
--- NOTE | 2024-04-21 16:15 | PC.NURSE ---
checked on pt, no needs at this time. made aware to call out if needs to go the the br, needing urine specimen. cb within reach and at bs
[2024-04-21 16:22] LABS: Thyroid Stimulating Hormone < 0.02 uIU/mL (0.465-4.68)
[2024-04-21 16:58] LABS: Microscopic, Urine URINE MICROSCOPIC (MICROSCOPIC)
[2024-04-21 17:03] LABS: Appearance,Urine CLEAR (Clear); Blood, Urine Negative (Negative); Color,Urine YELLOW (Yellow); Glucose,Urine (UA) Negative (Negative); Ketones,Urine TRACE (Negative); Leukocyte Esterase,Urine Negative (Negative); Nitrate,Urine Negative (Negative); PH,Urine 5.5 (5.0-8.5); Protein,Urine TRACE (Negative); Specific Gravity, Urine >= 1.030 (1.005-1.030)
[2024-04-21 17:04] LABS: Bilirubin,Urine 2+ (Negative)
[2024-04-21] MEDS: OXYCODONE 5MG IMMEDIATE RELEASE TABLET 5 MG PO (17:38)
[2024-04-21 18:19] LABS: WBC,Urine Occasional #/hpf (0-3)
[2024-04-21 18:20] LABS: Bacteria,Urine 2+ /lpf; Mucus,Urine 2+ /lpf
== END 2024-04-21 18:36 | disposition home or self-care (01) ==
PROVIDERS: Emergency Provider Emergency Medicine; PCP Nurse Practitioner Family
DX: E05.90 Thyrotoxicosis, unspecified without thyrotoxic crisis or storm (principal); M54.40 Lumbago with sciatica, unspecified side; R10.31 Right lower quadrant pain; M79.604 Pain in right leg
CPT/HCPCS: 72131; 73502; 73552; 80053; 81001; 84436; 84443; 85025; 87086; 93005; 96374; 96375; 99285; J3360

== ENCOUNTER 2024-04-25 09:47 | Outpatient (CLI) | payer MEDICARE, OTHER, SELFPAY ==
[2024-04-25 17:47] LABS: Magnesium 2.1 mg/dl (1.6-2.3)
[2024-04-25 18:22] LABS: Ferritin 67.5 ng/ml (11.1-264)
[2024-04-25 19:33] LABS: C-Reactive Protein 1.3 mg/L (0-4)
[2024-04-25 20:17] LABS: Vitamin B12 661 pg/mL (239-931)
== END 2024-04-25 23:59 | disposition home or self-care (01) ==
PROVIDERS: PCP Nurse Practitioner Family; Visit Provider Nurse Practitioner Family
DX: L65.9 Nonscarring hair loss, unspecified (principal); Z68.28 Body mass index [BMI] 28.0-28.9, adult; E66.3 Overweight
CPT/HCPCS: 82607; 82728; 83735; 86140

== ENCOUNTER 2024-05-11 08:34 | Day surgery (SDC) | payer MEDICARE, OTHER, SELFPAY ==
[2024-05-11] VITALS (12 sets, daily range): BP systolic 129–166; BP diastolic 62–99; PULSE 68–112; RESP 16–20; TEMP 36.9; O2SAT 92–98; BMI 29.8
--- NOTE | 2024-05-11 07:29 | IR_ITS ---
APPROVED REPORT Patient Location: [facility] Operator: Mao Blevins, RT (R) PROCEDURES Left heart catheterization Left ventriculogram Selective coronary angiogram Drug-eluting stent deployment to the mid dominant right coronary INDICATION Abnormal CCTA, Coronary artery disease, Angina pectoris Informed consent was obtained prior to the procedure. COMPLICATIONS NONE Estimated Blood Loss: LESS THAN 10 ML TECHNIQUE One percent lidocaine used to anesthetize the right anterior aspect of the wrist. The right radial artery was accessed via the Seldinger technique. A 6 Maltese sheath was placed in the right radial artery. 2.5 mg of Verapamil, 800 mcg of nitroglycerin, 1mg Lidocaine and 5000 U Heparin were given through the arterial sheath. The 6 Maltese JL 3 guide catheter was also used to perform left heart catheterization, left ventriculogram and selective coronary angiogram. At the end the diagnostic angiogram therapeutic heparin was administered giving a therapeutic ACT and the guide catheter was placed in the right coronary artery followed by Choice PT extra-support wire. A 3 mm x 18 mm Minh frontier stent was deployed at 24 binu reducing the stenosis to less than 20%. A 3.5 x 12 mm noncompliant balloon was then deployed at 22 binu in the proximal midportion reducing the stenosis further and post dilating. Excellent intragraft results were obtained with [id number] flow being present before and after procedure. At the end of procedure the apparatus was removed the sheath was removed and hemostasis was achieved using TR banding patient was transferred to the postop putting in stable condition ANGIOGRAPHIC RESULTS The left main artery Has a calcified ostium and is small caliber with no discrete focal stenosis The left anterior descending artery Has proximal 10 to 20% calcified stenoses with mid vessel 10% stenoses. A large first diagonal artery has mid vessel 30% stenosis The circumflex artery Small nondominant with 10% luminal regularities The right coronary artery Large and dominant with a mid vessel 70% stenosis The NOWAK ventriculogram reveals Normal 60% The left ventricular end-diastolic pressure 10 mmHg IMPRESSION Severe mid dominant right coronary disease as described above Successful stent to the mid right coronary severe disease reduced to 0% with 1 drug-eluting stent PLAN 1. Plavix and aspirin 2. LDL less than 55 to achieve that high intensity statin 3. Avoidance of tobacco products 4. Risk factor modification 5. Cardiac rehabilitation Electronically signed by : Juliano Salinas MD 05/11/2024 12:43:18
[2024-05-11 09:07] LABS: Basophils % 0.4 % (0.1-2.0); Eosinophils # 0.2 K/mm3 (0.0-0.4); Eosinophils % 3.2 % (0.1-12.0); Hematocrit 38.1 % (37.0-47.0); Hemoglobin 11.8 g/dL (12.2-16.2); Lymphocytes # 2.1 K/mm3 (0.7-4.5); Lymphocytes % 30.8 % (10-50); Mean Corpuscular Hemoglobin 25.2 pg (27.0-31.2); Mean Corpuscular Volume 81.4 fl (81-99); Monocytes # 0.8 K/mm3 (0.1-1.0); Monocytes % 11.4 % (1.7-9.3); Neutrophils # 3.7 K/mm3 (1.8-7.8); Neutrophils % 53.9 % (37.0-80.0); Platelet Count 284 K/mm3 (142-424); Red Blood Count 4.68 M/mm3 (4.20-5.40); Red Cell Distribution Width 15.1 % (11.5-17.5); White Blood Count 6.8 K/mm3 (4.8-10.8)
[2024-05-11 09:12] LABS: Chloride 106 mmol/L (98-107); Potassium 4.6 mmoL/L (3.5-5.1); Sodium 139 mmol/L (136-145)
[2024-05-11 09:15] LABS: Anion Gap 11.6 mEq/L (5-15); Blood Urea Nitrogen 17 mg/dl (7-17); Carbon Dioxide 26 mmol/L (22.0-30.0); Creatinine Clearance Estimated 67 mL/min (50-200); Estimated Glomerular Filt Rate 98 ml/min (>60); GFR (African American) 119 ML/MIN (>60)
[2024-05-11 09:16] LABS: Calcium 10.2 mg/dl (8.4-10.2); Glucose 104 mg/dl (74-100)
[2024-05-11] MEDS: HEPARIN 1,000 UNITS/ML 10ML VIAL (CATH LAB) 10000 UNIT IV (11:21)
[2024-05-11] MEDS: diphenhydrAMINE 50MG/ML VIAL 50 MG IV (11:22)
[2024-05-11] MEDS: NITROGLYCERIN 800MCG/8ML SYR (CATH LAB) 800 MCG IA (11:22)
[2024-05-11] MEDS: HEPARIN 1,000 UNITS/500ML NS (CATH LAB) 3000 UNIT IV (11:22)
[2024-05-11] MEDS: LIDOCAINE 1% 10ML MDV 20 ML IJ (11:22)
[2024-05-11] MEDS: VERAPAMIL 2.5MG/ML 2ML VIAL 2.5 MG IV (11:22)
[2024-05-11] MEDS: 0.9 % SODIUM CHLORIDE 500 ML 25 ML IV (11:23)
[2024-05-11] MEDS: FENTANYL 100MCG/2ML VIAL 50 MCG IV (12:20)
[2024-05-11] MEDS: MIDAZOLAM HCL 1MG/ML 5ML VIAL 1 MG IV (12:21)
--- NOTE | 2024-05-11 12:27 | SUR.PHASEII ---
DR EASTON STATED OKAY TO SEND PATIENT HOME 3 HOURS POST CATH
[2024-05-11] MEDS: ASPIRIN 325MG TABLET 325 MG PO (12:29)
[2024-05-11] MEDS: CLOPIDOGREL 300MG TABLET 600 MG PO (12:29)
[2024-05-11] MEDS: IOPAMIDOL-370 (76%);100ML BOTTLE 60 ML IV (14:56)
[2024-05-11 14:59] LABS: CATHL Activated Clotting Time 250 SEC (74-125)
== END 2024-05-11 15:19 | disposition home or self-care (01) ==
PROVIDERS: PCP Nurse Practitioner Family; Visit Provider Internal Medicine
DX: I25.118 Atherosclerotic heart disease of native coronary artery with other forms of angina pectoris (principal); R93.1 Abnormal findings on diagnostic imaging of heart and coronary circulation; I77.1 Stricture of artery; Z79.899 Other long term (current) drug therapy; I10 Essential (primary) hypertension; E78.5 Hyperlipidemia, unspecified; Z86.16 Personal history of COVID-19; Z82.49 Family history of ischemic heart disease and other diseases of the circulatory system
CPT/HCPCS: 80048; 85025; 85347; 92928; 93458; 99152; C1725; C1769; C1874; C9600; J1200; J1644; J2250; J3010; Q9967

== ENCOUNTER 2024-05-17 13:48 | Outpatient (POV) | payer MEDICARE, OTHER, SELFPAY ==
[2024-05-17 14:15] VITALS: BP 120/65; PULSE 79; RESP 18; O2SAT 94; BMI 29.8
--- NOTE | 2024-05-17 14:25 | EXP.PAIN.OV ---
HPI Data of Consult Patient: new to practice Consult date: 05/17/24 Requesting Physician: Destini Villatoro APRN Primary Care Provider: Gricelda Amaya APRN Consult Narrative Reason for consult: Low back pain, bilateral hip pain History of present illness: Ms. Coates is a 74 year old female who presents today as a new patient. She is a self-referral as her is a patient of ours. Today she rates her pain a 6 out of 10. Patient states that she has had chronic longstanding back pain that has gone for years and progressively worsened. She does describe it overall as a constant achy sensation and does state that she has tried oral medications, heat and ice, topicals, physical therapy and chiropractor with no additional changes. She has gotten injections in the past from an office in [place] however is wanting to switch over to our office. She states that she did have a epidural injection about a month and a half ago and that she generally does get good improvement however she had a fall all at the same time of that injection. She states it was related to the weather and that now she has noticed more numbness and tingling that goes in and around her low back, hips, buttocks and upper thighs. Patient states it is worse with certain positions such as prolonged sitting or standing. She states that she has difficulty doing activities of daily living such as cooking and cleaning. Patient is interested in any help we may be able to provide. Patient does have a heart history and did have a cardiac stent placed in the last 2 weeks and is doing well from this. Patient is currently managed with [place] 7.5 mg 3 times daily from the pain doctor in [place]. She states that this does better for her fibromyalgia and it does her overall low back pain. Patient does state that she did end up going to the doctor following her fall and that they did question whether or not if she had a muscle strain in her groin due to the worsening pain. Her Mervin has been reviewed and is appropriate. CC: Destini Villatoro APRN [facility] Disclaimer: The information contained in this section may have been updated after the patient was seen, as this information can be updated by other users. Medical History (Updated 05/17/24 @ 14:29 by Destini Villatoro APRN) Abnormal findings on diagnostic imaging of heart and coronary circulation DDD (degenerative disc disease), lumbar Lumbar stenosis Cancer Hyperlipemia Hypertension Sleep apnea History of COVID-19 Endometriosis Sinus headache History of back pain Fibromyalgia History of gastroesophageal reflux (GERD) Hypothyroid Glaucoma History of cataract Allergies Major depressive disorder Aftercare following bilateral knee joint replacement surgery DMITRY (obstructive sleep apnea) Restless sleeper Daytime somnolence Snoring Headache Surgical History History of trabeculectomy History of total knee replacement History of surgery History of esophagogastroduodenoscopy (EGD) History of cataract surgery History of cholecystectomy Hx of appendectomy H/O total hysterectomy Family History Other Cancer Coronary artery disease Diabetes Heart attack Hyperlipidemia Hypertension Stroke Social History Smoking Status: Former smoker years smoked: 1 smoking status stop date: 1994 second hand exposure: No alcohol intake: never substance use type: denies use current occupational status: retired Travel in the last 8 weeks: None household members: spouse housing: house marital status: number of children: 4 current occupation: [employer] current occupational exposures/hazards: Yes caffeine: Yes Review of Systems Review of Systems Review of systems:: pertinent systems reviewed and negative unless documented below Review of systems (narrative): Review of Systems: General: No recent weight changes, no fever, no sleep disturbances Respiratory: No cough, no shortness of air, no recurring pulmonary infections Cardiovascular/peripheral vascular: No chest pain, no palpitations, no edema, no shortness of breath Gastrointestinal: No new onset incontinence, normal bowel movements reported Genitourinary: No new onset incontinence Musculoskeletal: Low back pain, bilateral hip pain Psychiatric: [Normal mood/affect] Neurological: [Denies weakness in extremities], [denies balance issues] Meds Home Medications and Allergies Home Medications ?Medication ?Instructions ?Recorded ?Confirmed ?Type multivitamin 1 tab PO DAILY Supplement 12/01/21 05/11/24 History rabeprazole 20 mg tablet,delayed 20 mg PO DAILY Reflux/Acid reflux 01/16/22 05/11/24 History release (AcipHex) brimonidine 0.2 %-timolol 0.5 % 3 drp ophthalmic (eye) TID 10/12/23 05/11/24 History eye drops (Combigan) brinzolamide 1 % eye 1 drp ophthalmic (eye) BID 10/12/23 05/11/24 History drops,suspension (Azopt) hydrocodone 7.5 mg-acetaminophen 1 tab PO TID PRN Pain, Moderate 10/12/23 05/11/24 History 325 mg tablet pramipexole 0.25 mg tablet 0.25 mg PO HS RLS 90 days #90 tabs 10/12/23 05/11/24 Rx amitriptyline 25 mg tablet 25 mg PO HS headache 90 days #90 11/15/23 05/11/24 Rx tabs fenofibrate micronized 134 mg 134 mg PO DAILY Cholesterol 90 01/17/24 05/11/24 Rx capsule days #90 caps hydrochlorothiazide 12.5 mg tablet 12.5 mg PO DAILY BP #90 tabs 01/17/24 05/11/24 Rx losartan 25 mg tablet 25 mg PO DAILY 90 days #90 tabs 01/17/24 05/11/24 Rx pantoprazole 40 mg tablet,delayed 40 mg PO DAILY #90 tabs 01/17/24 05/11/24 Rx release vilazodone 40 mg tablet (Viibryd) 40 mg PO DAILY #90 tabs 01/28/24 05/11/24 Rx bimatoprost 0.03 % eye drops 1 drp Eye-Both DAILY 02/01/24 05/11/24 History sertraline 100 mg tablet (Zoloft) 100 mg PO DAILY 90 days #90 tabs 02/14/24 05/11/24 Rx rosuvastatin 20 mg tablet (Crestor) 10 mg PO DAILY 02/25/24 05/11/24 History methimazole 10 mg tablet 20 mg (2 x 10 mg) PO DAILY #60 tabs 04/21/24 05/11/24 Rx prednisone 20 mg tablet 40 mg (2 x 20 mg) PO DAILY 3 days 04/21/24 05/11/24 Rx #6 tabs cyclobenzaprine 10 mg tablet 10 mg PO BID PRN muscle spasm #60 04/25/24 05/11/24 Rx tabs lidocaine 5 % topical patch 1 patch topical DAILY #30 ea 04/25/24 05/11/24 Rx (Lidoderm) bisoprolol fumarate 10 mg tablet 10 mg PO DAILY BP #90 tabs 05/04/24 05/11/24 Rx aspirin 81 mg chewable tablet 81 mg PO DAILY #30 tabs 05/11/24 Rx clopidogrel 75 mg tablet (Plavix) 75 mg PO DAILY #30 tabs 05/11/24 Rx aripiprazole 10 mg tablet 10 mg PO HS #90 tabs 05/15/24 05/15/24 Rx hydroxyzine HCl 25 mg tablet 25 mg PO TID PRN antihistamine #90 05/15/24 05/15/24 Rx tabs New Prescriptions to Start Prescriptions: Allergies Allergy/AdvReac Type Severity Reaction Status Date / Time naproxen (From ALEVE) Allergy Severe S-DIFF. Verified 04/25/24 13:10 BREATHING Objective Narrative: Physical Exam: General: Alert and oriented x3, no acute distress, pleasant and cooperative Lungs: Respirations even and unlabored, symmetrical chest expansion Eyes: PERRL Musculoskeletal: Flexion and extension of lumbar [spine] somewhat guarded secondary to pain, [antalgic gait noted] point tenderness along bilateral SIs with positive bilateral Charisma's, Mumtaz's, Gaenslen's, compression and distraction exam Neurological: Speech clear, no gross sensory deficit Additional findings Additional findings: FINDINGS: There is advanced disc space narrowing at L5-S1 with endplate sclerosis. There is anterior and posterior osteophyte formation. T12-L1: No significant disc bulge or protrusion. L1-2: No significant disc bulge or protrusion. L2-3: Mild diffuse disc bulge with mild bilateral neuroforaminal narrowing. L3-4: Mild diffuse disc bulge with mild bilateral neuroforaminal narrowing. L4-5: Mild diffuse disc bulge with mild bilateral neuroforaminal narrowing. L5-S1: Large diffuse disc bulge with endplate hypertrophy. High-grade bilateral neuroforaminal narrowing with moderate to high-grade spinal canal compromise. IMPRESSION: Multilevel diffuse disc bulges, most evident at L5-S1 where there is moderate to high grade spinal and high-grade bilateral neuroforaminal narrowing. Reviewed, Interpreted and Dictated by Ángel Alanis MD Transcribed by Niesha Triana Authenticated and [facility] Assessment and Plan *Assessment and plan (1) Bilateral sacroiliitis: Status: Acute Category: Medical Code(s): M46.1 - Sacroiliitis, not elsewhere classified (2) DDD (degenerative disc disease), lumbar: Status: Acute Category: Medical Code(s): M51.369 - Other intervertebral disc degeneration, lumbar region without mention of lumbar back pain or lower extremity pain (3) Chronic pain: Problem Comment: Chronic pain syndrome, fibromyalgia, lower back pain with radicular signs and symptoms. Tramadol was to continue and she is currently on hydrocodone 7.5 mg 3 times daily. Status: Chronic Qualifiers: Chronic pain type: chronic pain syndrome Qualified Code(s): G89.4 - Chronic pain syndrome Category: Medical Code(s): G89.29 - Other chronic pain Plan Patient is experiencing worsening pain along the low back and bilateral hips. They did have limited range of motion of the lumbar spine along with point tenderness along bilateral SI joints and a positive bilateral Charisma's, Mumtaz's, Gaenslen's, compression and distraction exam. I did discuss with the patient that I do believe they would benefit from bilateral SI injections. Risk and benefits were discussed with the patient and they would like to proceed forward with this option. Patient has tried and failed conservative therapy including continued at home stretching exercise for longer than 12 weeks. Patient has had chronic low back pain for years however this pain was really aggravated related to a fall about 6 weeks ago. I did also discuss with patient whether or not she had tried her 's compounded cream that we have ordered. Patient states she has not and I have recommended she try this and see if it does help with some of her pain and that we can send in additional refills. Patient agrees with this plan of care. Patient will be scheduled for bilateral SI injections under fluoroscopy. Patient has been instructed to contact the clinic with any concerns before the next appointment. Dr. Hayden has reviewed this note and agrees with this plan of care. This note was dictated using voice recognition software and make contain errors or omissions. All injections are used with Lidocaine or Bupivacaine and Depo Medrol.
== END 2024-05-17 23:59 | disposition home or self-care (01) ==
LOC: SC.PAIN 13:53
PROVIDERS: PCP Nurse Practitioner Family; Visit Provider Nurse Practitioner Family
DX: M46.1 Sacroiliitis, not elsewhere classified (principal); M51.369 Other intervertebral disc degeneration, lumbar region without mention of lumbar back pain or lower extremity pain; G89.4 Chronic pain syndrome; Z73.89 Other problems related to life management difficulty; Z79.899 Other long term (current) drug therapy
CPT/HCPCS: 99202; G0463

== ENCOUNTER 2024-05-30 10:57 | Outpatient (CLI) | payer MEDICARE, OTHER, SELFPAY ==
[2024-05-30 11:40] LABS: Basophils % 0.3 % (0.1-2.0); Eosinophils # 0.1 K/mm3 (0.0-0.4); Eosinophils % 0.7 % (0.1-12.0); Hematocrit 42.7 % (37.0-47.0); Hemoglobin 13.6 g/dL (12.2-16.2); Lymphocytes # 2.4 K/mm3 (0.7-4.5); Lymphocytes % 20.7 % (10-50); Mean Corpuscular HGB Conc 31.9 g/dL (31.8-35.4); Mean Corpuscular Hemoglobin 25.6 pg (27.0-31.2); Mean Corpuscular Volume 80.4 fl (81-99); Mean Platelet Volume 11.3 fl (7.4-10.4); Monocytes # 0.7 K/mm3 (0.1-1.0); Monocytes % 6.2 % (1.7-9.3); Neutrophils # 8.3 K/mm3 (1.8-7.8); Neutrophils % 71.7 % (37.0-80.0); Platelet Count 339 K/mm3 (142-424); Red Blood Count 5.31 M/mm3 (4.20-5.40); Red Cell Distribution Width 15.1 % (11.5-17.5); White Blood Count 11.6 K/mm3 (4.8-10.8)
[2024-05-30 12:28] LABS: Albumin Level 4.7 g/dl (3.5-5.0); Chloride 103 mmol/L (98-107); Potassium 3.9 mmoL/L (3.5-5.1); Sodium 140 mmol/L (136-145)
[2024-05-30 12:31] LABS: Alanine Aminotransferase 35 U/L (12-78); Albumin/Globulin Ratio 1.7 (1.1-1.8); Alkaline Phosphatase 79 U/L (38-126); Anion Gap 12.9 mEq/L (5-15); Aspartate Amino Transferase 42 U/L (14-36); Bilirubin,Total 0.6 mg/dl (0.2-1.3); Blood Urea Nitrogen 8 mg/dl (7-17); Calcium 10.9 mg/dl (8.4-10.2); Carbon Dioxide 28 mmol/L (22.0-30.0); Cholesterol 197 mg/dl (140-200); Estimated Glomerular Filt Rate 70 ml/min (>60); GFR (African American) 85 ML/MIN (>60); Globulin 2.7 g/dL (1.3-3.2); Glucose 97 mg/dl (74-100); Total Protein,Serum 7.4 g/dl (6.3-8.2); Triglycerides 312 mg/dl (30-150); VLDL Cholesterol 62 mg/dL (0-40)
[2024-05-30 12:32] LABS: Chol/HDL Ratio 5.5 (1-3.5); HDL Cholesterol 36 mg/dl (40-60); Magnesium 1.5 mg/dl (1.6-2.3)
[2024-05-30 12:43] LABS: Direct LDL Cholesterol 120.98 mg/dL (100-129)
[2024-05-30 12:49] LABS: T4 (Thyroxine) 16.3 ug/dl (5.53-11.0)
[2024-05-30 12:50] LABS: Free T4 (Free Thyroxine) 2.55 ng/dl (0.78-2.19)
[2024-05-30 13:20] LABS: Troponin I < 0.01 ng/ml (0.00-0.034)
[2024-05-30 20:02] LABS: Thyroid Stimulating Hormone < 0.02 uIU/mL (0.465-4.68)
[2024-05-31 13:11] LABS: Triiodothyronine (T3) Free 5.6 pg/mL (2.0-4.4)
== END 2024-05-30 23:59 | disposition home or self-care (01) ==
LOC: LAB 10:59
PROVIDERS: PCP Nurse Practitioner Family; Visit Provider Nurse Practitioner Family
DX: E05.90 Thyrotoxicosis, unspecified without thyrotoxic crisis or storm (principal); M62.838 Other muscle spasm; E78.5 Hyperlipidemia, unspecified; R00.0 Tachycardia, unspecified; R05.9 Cough, unspecified; R53.83 Other fatigue
CPT/HCPCS: 36415; 80053; 80061; 83735; 84436; 84439; 84443; 84481; 84484; 85025; 87635

== ENCOUNTER 2024-06-06 14:00 | Outpatient (CLI) | payer MEDICARE, OTHER, SELFPAY ==
[2024-06-06 21:34] LABS: Magnesium 1.7 mg/dl (1.6-2.3)
[2024-06-06 21:44] LABS: Intact Parathyroid Hormone 24.7 pg/mL (7.5-53.5)
[2024-06-06 21:55] LABS: 25-OH Vitamin D, Total 39.2 ng/mL (30-100)
== END 2024-06-06 23:59 | disposition home or self-care (01) ==
LOC: LAB.DROPOF 06-07 09:03
PROVIDERS: PCP Nurse Practitioner Family; Visit Provider Nurse Practitioner Family
DX: E83.42 Hypomagnesemia (principal); R25.1 Tremor, unspecified; E83.52 Hypercalcemia; Z68.28 Body mass index [BMI] 28.0-28.9, adult; E66.3 Overweight
CPT/HCPCS: 82306; 82330; 83735; 83970

== ENCOUNTER 2024-06-13 13:38 | Day surgery (SDC) | payer MEDICARE, OTHER, SELFPAY ==
[2024-06-13 13:49] VITALS: BP 119/57; PULSE 68; RESP 16; O2SAT 97; BMI 30.2
--- NOTE | 2024-06-13 14:12 | P.PCN_ITS ---
Procedure Date: 06/13/24 Time: 14:00 Anesthesiologist:: Ata Sands CRNA Complications:: None Pre-procedure Diagnosis:: Bilateral sacroiliitis Post-procedure Diagnosis:: Same Indications for Procedure:: Patient is a very pleasant 74-year-old female who comes our clinic today for bilateral sacroiliac joint injection of cortisone and local anesthetic. Patient describes low lumbar back pain off the midline bilaterally. Bilateral posterior hip pain. Difficulty transitioning from sitting to standing. She rates her pain 7/10. Procedure Details:: Procedure: Bilateral sacroiliac joint injections under fluoroscopy Informed consent was obtained and the risks and benefits of the procedure were explained to the patient.~ The patient was taken to the procedure room and noninvasive monitors were placed including a noninvasive blood pressure cuff and pulse oximeter.~ The patient was placed prone on the procedure table. Both hips were cleansed using Betadine as a cleansing solution. C-arm fluoroscopy was used to view the right sacroiliac joint.~ The skin and subcutaneous tissues were anesthetized using lidocaine 1.5% and a 25-gauge needle.~ After this, a 22-gauge spinal needle was inserted under fluoroscopic guidance into the inferior aspect of the right sacroiliac joint.~ Omnipaque dye was injected and good spread was seen throughout the joint.~ After this, approximately 5 mL of bupivacaine, 0.25% and Depo-Medrol, 40 mg was incrementally injected into the right sacroiliac joint. We then moved to the left sacroiliac joint.~ The skin and subcutaneous tissues were anesthetized using lidocaine 1.5% and a 25-gauge needle.~ After this, a 22- gauge spinal needle was inserted under fluoroscopic guidance into the inferior aspect of the left sacroiliac joint.~ Omnipaque dye was injected and good spread was seen throughout the joint. After this, approximately 5 mL of bupivacaine, 0.25% and Depo-Medrol, 40 mg was incrementally injected into the left sacroiliac joint.~ The patient tolerated the procedure well with no complications. The patient was observed in the Pain Clinic and then was discharged home neurologically intact. Plan and Disposition:: Patient was discharged without incident.
[2024-06-13 14:15] VITALS: BP 136/69; PULSE 73; RESP 16; O2SAT 95
[2024-06-13] MEDS: BUPIVACAINE 0.25% 10ML INJ 25 MG IJ (15:02)
[2024-06-13] MEDS: LIDOCAINE 1% 5ML PF VIAL 5 ML (15:02)
[2024-06-13 15:04] VITALS: BP 132/49; PULSE 75; RESP 18; O2SAT 97
[2024-06-13 15:08] VITALS: BP 132/49; PULSE 75; RESP 18; O2SAT 97
== END 2024-06-13 14:15 | disposition home or self-care (01) ==
PROVIDERS: PCP Nurse Practitioner Family; Visit Provider Nurse Anesthetist, Certified Registered
DX: M46.1 Sacroiliitis, not elsewhere classified (principal)
CPT/HCPCS: 27096; G0260; J1010

== ENCOUNTER 2024-06-27 12:36 | Outpatient (CLI) | payer MEDICARE, OTHER, SELFPAY ==
--- NOTE | 2024-06-27 12:36 | MR_ITS ---
FINAL REPORT CLINICAL HISTORY: Right anterior hip pain x 2 months slipped on ice when getting into a car COMPARISON: None FINDINGS: MR RIGHT HIP TECHNIQUE: Multiplanar MR without gadolinium enhancement. FINDINGS: ARTICULAR CARTILAGE: Mild degenerative changes present. LABRUM: There is a small tear of the anterolateral labral junction. MARROW SIGNAL: No contusion, fracture, or AVN is identified. JOINT FLUID: A moderate joint effusion is present. ADJACENT SOFT TISSUES: Unremarkable. IMPRESSION: No acute osseous abnormality. Anterolateral labral tear as described. Moderate sized joint effusion. Reviewed, Interpreted and Dictated by Zafar Camacho MD Transcribed by Philly Bojorquez Authenticated and [facility]
--- OUTSIDE RECORDS SUMMARY | 2024-06-29 21:11 | XMS_ITS ---
Laboratory report Created on: June 03, 2024 REBECCA SOLORZANO : 1950 Sex: Female Author Organization Unknown PROBLEMS Problems List Code Description RESULTS Laboratory Orders Date Order Code Test 2024-05-30 [id number] TRIIODOTHYRONINE (T3), FREE Laboratory Results Date LOINC Test Value Unit Reference Range Interpre tation 2024-05-30 3051-0 TRIIODOTHYRONINE (T3), FREE 5.6 PG/ML 2.0-4.4 H
--- OUTSIDE RECORDS SUMMARY | 2024-06-29 21:11 | XMS_ITS ---
Laboratory report Created on: June 10, 2024 REBECCA SOLORZANO : 1950 Sex: Female Author Organization Unknown PROBLEMS Problems List Code Description RESULTS Laboratory Orders Date Order Code Test 2024-06-06 [id number] CALCIUM, IONIZED , SERUM Laboratory Results Date LOINC Test Value Unit Reference Range Interpre tation 2024-06-06 22947-7 CALCIUM, IONIZED, SERUM 5 MG/DL 4.5-5 .6
== END 2024-06-27 23:59 | disposition home or self-care (01) ==
LOC: RAD 12:36
PROVIDERS: PCP Nurse Practitioner Family; Visit Provider Nurse Practitioner Family
DX: M25.551 Pain in right hip (principal)
CPT/HCPCS: 73721

== ENCOUNTER 2024-06-28 14:12 | Outpatient (POV) | payer MEDICARE, OTHER, SELFPAY ==
--- NOTE | 2024-06-28 14:17 | EXP.PAIN.SOA ---
[facility] Disclaimer: The information contained in this section may have been updated after the patient was seen, as this information can be updated by other users. 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 AHI 4, RDI 11. Intolerance to CPAP, no interest in other treatment options, working on lifestyle modifications. Overnight oximetry did not indicate hypoxemia or hypercapnia. Restless sleeper Daytime somnolence Snoring Headache Nearly asymptomatic as long as she is taking amitriptyline 25 mg p.o. nightly. Recurrent symptoms since running out of medication, did not notify clinic. Reluctant to consider changing medications despite of MCI. Surgical History History of trabeculectomy bilateral History of total knee replacement jose martin knee replacement History of surgery jaw surgery History of esophagogastroduodenoscopy (EGD) History of cataract surgery History of cholecystectomy Hx of appendectomy H/O total hysterectomy Family History Other Cancer Coronary artery disease Diabetes Heart attack Hyperlipidemia Hypertension Stroke Social History Smoking Status: Former smoker years smoked: 1 smoking status stop date: 1994 second hand exposure: No alcohol intake: never substance use type: denies use current occupational status: other Travel in the last 8 weeks: None household members: spouse housing: house marital status: number of children: 4 current occupation: [employer] current occupational exposures/hazards: Yes caffeine: Yes Have you lived/traveled outside [place] in past 30 days?: No Contact w/someone who lives/traveled outside US past 30 days?: No Exposure to someone with infectious disease in past 14 days?: No Do you have a fever (greater than 100.4 F or 38 C)?: No Have you tested positive for COVID-19: No Exposed to someone with COVID-19 in past 14 days?: No Do you have a sore throat?: No Do you have a cough?: No Do you have any weakness?: No Do you have any diarrhea?: No Are you experiencing any unusual bleeding?: No Do you have any muscle aches/pain?: No Do you have any abdominal pain?: No Are you experiencing loss of taste or smell?: No PM Subjective & Objective Subjective Subjective:: Patient is a pleasant 74-year-old female who presents today for follow-up of bilateral SI injections on 06/12/2024. Today she rates her pain a 3 out of 10. She denies any new injury or trauma. She does state that she had approximately 80 percent improvement following this injection. She states that the pain is definitely not as severe and is much more manageable. Patient states that she immediately had improvement and has continued since. Patient does make mention that in the past she had some injections however they never provided the relief like these have. Patient states the injections were painful however due to the improved function she would do them all over again. Her Mervin has been reviewed and is appropriate. Review of Systems: General: No recent weight changes, no fever, no sleep disturbances Respiratory: No cough, no shortness of air, no recurring pulmonary infections Cardiovascular/peripheral vascular: No chest pain, no palpitations, no edema, no shortness of breath Gastrointestinal: No new onset incontinence, normal bowel movements reported Genitourinary: No new onset incontinence Musculoskeletal: Low back pain Psychiatric: [Normal mood/affect] Neurological: [Denies weakness in extremities], [denies balance issues] Pain at rest (0-10 scale): 3 Objective Objective:: Physical Exam: General: Alert and oriented x3, no acute distress, pleasant and cooperative Lungs: Respirations even and unlabored, symmetrical chest expansion Eyes: PERRL Musculoskeletal: Flexion and extension of lumbar [spine] somewhat guarded secondary to pain Neurological: Speech clear, no gross sensory deficit Has patient had previous pain injection?: Yes Percent improvement in pain since last injection: 80% Conservative treatment options previously tried: Home exercise plan Length of treatment: Longer than 12 weeks Meds Home Medications and Allergies Home Medications ?Medication ?Instructions ?Recorded ?Confirmed ?Type multivitamin 1 tab PO DAILY Supplement 12/01/21 06/28/24 History rabeprazole 20 mg tablet,delayed 20 mg PO DAILY Reflux/Acid reflux 01/16/22 06/28/24 History release (AcipHex) brimonidine 0.2 %-timolol 0.5 % 3 drp ophthalmic (eye) TID 10/12/23 06/28/24 History eye drops (Combigan) brinzolamide 1 % eye 1 drp ophthalmic (eye) BID 10/12/23 06/28/24 History drops,suspension (Azopt) hydrocodone 7.5 mg-acetaminophen 1 tab PO TID PRN Pain, Moderate 10/12/23 06/28/24 History 325 mg tablet pramipexole 0.25 mg tablet 0.25 mg PO HS RLS 90 days #90 tabs 10/12/23 06/28/24 Rx amitriptyline 25 mg tablet 25 mg PO HS headache 90 days #90 11/15/23 06/28/24 Rx tabs fenofibrate micronized 134 mg 134 mg PO DAILY Cholesterol 90 01/17/24 06/28/24 Rx capsule days #90 caps hydrochlorothiazide 12.5 mg tablet 12.5 mg PO DAILY BP #90 tabs 01/17/24 06/28/24 Rx losartan 25 mg tablet 25 mg PO DAILY 90 days #90 tabs 01/17/24 06/28/24 Rx pantoprazole 40 mg tablet,delayed 40 mg PO DAILY #90 tabs 01/17/24 06/28/24 Rx release vilazodone 40 mg tablet (Viibryd) 40 mg PO DAILY #90 tabs 01/28/24 06/28/24 Rx bimatoprost 0.03 % eye drops 1 drp Eye-Both DAILY 02/01/24 06/28/24 History sertraline 100 mg tablet (Zoloft) 100 mg PO DAILY 90 days #90 tabs 02/14/24 06/28/24 Rx rosuvastatin 20 mg tablet (Crestor) 10 mg PO DAILY 02/25/24 06/28/24 History methimazole 10 mg tablet 20 mg (2 x 10 mg) PO DAILY #60 tabs 04/21/24 06/28/24 Rx cyclobenzaprine 10 mg tablet 10 mg PO BID PRN muscle spasm #60 04/25/24 06/28/24 Rx tabs lidocaine 5 % topical patch 1 patch topical DAILY #30 ea 04/25/24 06/28/24 Rx (Lidoderm) aspirin 81 mg chewable tablet 81 mg PO DAILY #30 tabs 05/11/24 06/28/24 Rx clopidogrel 75 mg tablet (Plavix) 75 mg PO DAILY #30 tabs 05/11/24 06/28/24 Rx aripiprazole 10 mg tablet 10 mg PO HS #90 tabs 05/15/24 06/28/24 Rx hydroxyzine HCl 25 mg tablet 25 mg PO TID PRN antihistamine #90 05/15/24 06/28/24 Rx tabs albuterol sulfate 90 mcg/actuation 2 puff inhalation Q4-6H PRN 05/30/24 06/28/24 Rx aerosol inhaler shortness of breath or wheezing #6.7 grams magnesium glycinate 100 mg (as 400 mg PO DAILY 06/06/24 06/28/24 History glycinate) tablet promethazine-DM 6.25 mg-15 mg/5 mL 5 ml PO Q4-6H PRN cough #118 mL 06/06/24 06/28/24 Rx oral syrup bisoprolol fumarate 5 mg tablet 5 mg PO DAILY #30 tabs 06/08/24 06/28/24 Rx rosuvastatin 20 mg tablet (Crestor) 20 mg PO DAILY #30 tabs 06/08/24 06/28/24 Rx lamotrigine 25 mg tablet (Lamictal) 25 mg PO DAILY #42 tabs 06/27/24 06/28/24 Rx New Prescriptions to Start Prescriptions: Allergies Allergy/AdvReac Type Severity Reaction Status Date / Time naproxen (From ALEVE) Allergy Severe S-DIFF. Verified 06/27/24 14:19 BREATHING Assessment and Plan *Assessment and plan (1) Bilateral sacroiliitis: Status: Acute Category: Medical Code(s): M46.1 - Sacroiliitis, not elsewhere classified Plan Patient has had significant improvement following her SI injections and does not require any additional injection therapy at this time. Patient did make mention that she may need a refill on her [place] that was prescribed by the provider out of [place] for her daily aches and pains and arthritis. Patient was counseled due to her being a new or patient that I cannot guarantee that we would take over this prescription and would recommend her follow-up with that provider for refills at this time. Patient acknowledges understanding and agrees with plan of care. Patient will return to clinic in 6 weeks for reevaluation of symptoms and plan of care. Patient has been instructed to contact the clinic with any concerns before the next appointment. Dr. Hayden has reviewed this note and agrees with this plan of care. This note was dictated using voice recognition software and make contain errors or omissions. All injections are used with Lidocaine, Bupivacaine and Depo Medrol. Occasionally urine drug screen is needed to verify patient's compliance with our office pain contract. This is ordered based off specific treatments related to chronic pain with the potential to abuse certain medications.
[2024-06-28 14:23] VITALS: BP 140/81; PULSE 79; RESP 14; O2SAT 95; BMI 28.7
== END 2024-06-28 23:59 | disposition home or self-care (01) ==
LOC: SC.PAIN 14:16
PROVIDERS: PCP Nurse Practitioner Family; Visit Provider Nurse Practitioner Family
DX: M46.1 Sacroiliitis, not elsewhere classified (principal); Z96.653 Presence of artificial knee joint, bilateral; Z87.891 Personal history of nicotine dependence; Z79.899 Other long term (current) drug therapy
CPT/HCPCS: 99212; G0463

== ENCOUNTER 2024-07-31 15:40 | Outpatient (CLI) | payer MEDICARE, OTHER, SELFPAY ==
[2024-07-31 16:11] LABS: Chloride 105 mmol/L (98-107); Sodium 139 mmol/L (136-145)
[2024-07-31 16:12] LABS: Potassium 4.1 mmoL/L (3.5-5.1)
[2024-07-31 16:13] LABS: D-Dimer 0.65 ug/mL (0.0-0.5)
[2024-07-31 16:14] LABS: Blood Urea Nitrogen 13 mg/dl (7-17); Estimated Glomerular Filt Rate 70 ml/min (>60); GFR (African American) 85 ML/MIN (>60)
[2024-07-31 16:15] LABS: Anion Gap 11.1 mEq/L (5-15); Calcium 10.2 mg/dl (8.4-10.2); Carbon Dioxide 27 mmol/L (22.0-30.0); Glucose 98 mg/dl (74-100)
[2024-07-31 16:26] LABS: NT Pro Brain Natriuretic Pep. 230 pg/mL (0-125)
== END 2024-07-31 23:59 | disposition home or self-care (01) ==
LOC: LAB 15:41
PROVIDERS: PCP Nurse Practitioner Family; Visit Provider Internal Medicine
DX: E83.42 Hypomagnesemia (principal); R06.02 Shortness of breath; E05.90 Thyrotoxicosis, unspecified without thyrotoxic crisis or storm; E83.52 Hypercalcemia; R06.09 Other forms of dyspnea; I10 Essential (primary) hypertension; E78.5 Hyperlipidemia, unspecified; Z87.891 Personal history of nicotine dependence
CPT/HCPCS: 36415; 80048; 83880; 85378

== ENCOUNTER 2024-08-02 10:04 | Outpatient (CLI) | payer MEDICARE, OTHER, SELFPAY ==
--- NOTE | 2024-08-02 10:15 | CT_ITS ---
FINAL REPORT TECHNIQUE: The patient was injected with IV contrast. Axial images were obtained through the chest in a PE protocol. 3-D reconstruction images were also performed. Individualized dose reduction techniques using automated exposure control or adjustment of the MA and/or KV according to patient's size were employed. CLINICAL HISTORY: elevated d-dimer FINDINGS: Mediastinal vasculature is adequately opacified. No pulmonary artery filling defects are identified to suggest PE. There is no aortic dissection. The there are a few small scattered axillary lymph nodes. There is no hilar or mediastinal adenopathy. The heart size is normal. There is no pericardial or pleural effusion. There are mild chronic changes at the bases. No suspicious infiltrate or nodule is identified. Small hiatal hernia is present. There is fatty infiltration of the liver. The gallbladder is absent. IMPRESSION: No pulmonary embolus or dissection. Small hiatal hernia. Reviewed, Interpreted and Dictated by Ángel Alanis MD Transcribed by Niesha Triana Authenticated and . [facility]
[2024-08-02] MEDS: SODIUM CHLORIDE 0.9% 10ML SYR (RAD ONLY) 10 ML IV (10:53)
[2024-08-02] MEDS: 0.9 % SODIUM CHLORIDE 50 ML VIAL IV (10:53)
[2024-08-02] MEDS: IOPAMIDOL-370 (76%);100ML BOTTLE 85 ML IV (10:53)
== END 2024-08-02 23:59 | disposition home or self-care (01) ==
LOC: RAD 10:06
PROVIDERS: PCP Nurse Practitioner Family; Visit Provider Nurse Practitioner
DX: R79.89 Other specified abnormal findings of blood chemistry (principal); R93.1 Abnormal findings on diagnostic imaging of heart and coronary circulation; R01.1 Cardiac murmur, unspecified
CPT/HCPCS: 71275; Q9967

== ENCOUNTER 2024-08-09 13:31 | Outpatient (POV) | payer MEDICARE, OTHER, SELFPAY ==
[2024-08-09 13:44] VITALS: BP 133/59; PULSE 73; RESP 14; O2SAT 96; BMI 29.5
--- NOTE | 2024-08-09 13:56 | EXP.PAIN.SOA ---
[facility] Disclaimer: The information contained in this section may have been updated after the patient was seen, as this information can be updated by other users. 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 AHI 4, RDI 11. Intolerance to CPAP, no interest in other treatment options, working on lifestyle modifications. Overnight oximetry did not indicate hypoxemia or hypercapnia. Restless sleeper Daytime somnolence Snoring Headache Nearly asymptomatic as long as she is taking amitriptyline 25 mg p.o. nightly. Recurrent symptoms since running out of medication, did not notify clinic. Reluctant to consider changing medications despite of MCI. Surgical History History of trabeculectomy bilateral History of total knee replacement jose martin knee replacement History of surgery jaw surgery History of esophagogastroduodenoscopy (EGD) History of cataract surgery History of cholecystectomy Hx of appendectomy H/O total hysterectomy Family History Other Cancer Coronary artery disease Diabetes Heart attack Hyperlipidemia Hypertension Stroke Social History Smoking Status: Former smoker years smoked: 1 smoking status stop date: 1994 second hand exposure: No alcohol intake: never substance use type: denies use current occupational status: other Travel in the last 8 weeks?: None household members: spouse housing: house marital status: number of children: 4 current occupation: [employer] current occupational exposures/hazards: Yes caffeine: Yes PM Subjective & Objective Subjective Subjective:: Patient is a pleasant 74-year-old female who presents today for worsening low back and hip pain. She denies any new falls or injuries. She does rated her pain a 6 out of 10. Patient does state that it does seem like it is still that same pain we were treating her for last and that she feels like her last injections have officially worn off. Patient does state the pain is fairly constant and describes it as an aching, throbbing sensation that is worse with increased activity or prolonged positioning. Patient does state the pain is interfering with her ability perform activities of daily living such as cooking and cleaning and would like to get scheduled for repeat injections. Patient states her last injections were the best thing she is ever done and she is never felt so good. Patient states she was able to do things around her home with easier movements and less pain. Her Mervin has been reviewed and is appropriate. Review of Systems: General: No recent weight changes, no fever, no sleep disturbances Respiratory: No cough, no shortness of air, no recurring pulmonary infections Cardiovascular/peripheral vascular: No chest pain, no palpitations, no edema, no shortness of breath Gastrointestinal: No new onset incontinence, normal bowel movements reported Genitourinary: No new onset incontinence Musculoskeletal: Low back pain, bilateral hip pain Psychiatric: [Normal mood/affect] Neurological: [Denies weakness in extremities], [denies balance issues] Pain at rest (0-10 scale): 6 Objective Objective:: Physical Exam: General: Alert and oriented x3, no acute distress, pleasant and cooperative Lungs: Respirations even and unlabored, symmetrical chest expansion Eyes: PERRL Musculoskeletal: Flexion and extension of lumbar [spine] somewhat guarded secondary to pain, [antalgic gait noted] point tenderness along bilateral SIs with positive bilateral Charisma's, Mumtaz's, Gaenslen's, compression and distraction exam Neurological: Speech clear, no gross sensory deficit Has patient had previous pain injection?: No Conservative treatment options previously tried: Home exercise plan Length of treatment: Longer than 12 weeks Meds Home Medications and Allergies Home Medications ?Medication ?Instructions ?Recorded ?Confirmed ?Type multivitamin 1 tab PO DAILY Supplement 12/01/21 08/09/24 History rabeprazole 20 mg tablet,delayed 20 mg PO DAILY Reflux/Acid reflux 01/16/22 08/09/24 History release (AcipHex) brimonidine 0.2 %-timolol 0.5 % 3 drp ophthalmic (eye) TID 10/12/23 08/09/24 History eye drops (Combigan) brinzolamide 1 % eye 1 drp ophthalmic (eye) BID 10/12/23 08/09/24 History drops,suspension (Azopt) hydrocodone 7.5 mg-acetaminophen 1 tab PO TID PRN Pain, Moderate 10/12/23 08/09/24 History 325 mg tablet pramipexole 0.25 mg tablet 0.25 mg PO HS RLS 90 days #90 tabs 10/12/23 08/09/24 Rx amitriptyline 25 mg tablet 25 mg PO HS headache 90 days #90 11/15/23 08/09/24 Rx tabs fenofibrate micronized 134 mg 134 mg PO DAILY Cholesterol 90 01/17/24 08/09/24 Rx capsule days #90 caps hydrochlorothiazide 12.5 mg tablet 12.5 mg PO DAILY BP #90 tabs 01/17/24 08/09/24 Rx losartan 25 mg tablet 25 mg PO DAILY 90 days #90 tabs 01/17/24 08/09/24 Rx pantoprazole 40 mg tablet,delayed 40 mg PO DAILY #90 tabs 01/17/24 08/09/24 Rx release vilazodone 40 mg tablet (Viibryd) 40 mg PO DAILY #90 tabs 01/28/24 08/09/24 Rx bimatoprost 0.03 % eye drops 1 drp Eye-Both DAILY 02/01/24 08/09/24 History sertraline 100 mg tablet (Zoloft) 100 mg PO DAILY 90 days #90 tabs 02/14/24 08/09/24 Rx cyclobenzaprine 10 mg tablet 10 mg PO BID PRN muscle spasm #60 04/25/24 08/09/24 Rx tabs lidocaine 5 % topical patch 1 patch topical DAILY #30 ea 04/25/24 08/09/24 Rx (Lidoderm) aspirin 81 mg chewable tablet 81 mg PO DAILY #30 tabs 05/11/24 08/09/24 Rx clopidogrel 75 mg tablet (Plavix) 75 mg PO DAILY #30 tabs 05/11/24 08/09/24 Rx hydroxyzine HCl 25 mg tablet 25 mg PO TID PRN antihistamine #90 05/15/24 08/09/24 Rx tabs albuterol sulfate 90 mcg/actuation 2 puff inhalation Q4-6H PRN 05/30/24 08/09/24 Rx aerosol inhaler shortness of breath or wheezing #6.7 grams magnesium glycinate 100 mg (as 400 mg PO DAILY 06/06/24 08/09/24 History glycinate) tablet rosuvastatin 20 mg tablet (Crestor) 20 mg PO DAILY #30 tabs 06/08/24 08/09/24 Rx clotrimazole 1 % topical cream 1 applic topical BID 2 weeks #45 07/28/24 08/09/24 Rx grams fluconazole 100 mg tablet 100 mg PO DAILY 10 days #10 tabs 07/28/24 08/09/24 Rx valacyclovir 1 gram tablet 1,000 mg PO TID 7 days #21 tabs 07/28/24 08/09/24 Rx (Valtrex) bisoprolol fumarate 10 mg tablet 10 mg PO DAILY #90 tabs 07/31/24 08/09/24 Rx lamotrigine 25 mg tablet (Lamictal) 75 mg (3 x 25 mg) PO DAILY #100 07/31/24 08/09/24 Rx tabs methimazole 10 mg tablet 10 mg PO DAILY 07/31/24 08/09/24 History New Prescriptions to Start Prescriptions: Allergies Allergy/AdvReac Type Severity Reaction Status Date / Time naproxen (From ALEVE) Allergy Severe S-DIFF. Verified 07/31/24 14:53 BREATHING Assessment and Plan *Assessment and plan (1) Bilateral sacroiliitis: Status: Acute Category: Medical Code(s): M46.1 - Sacroiliitis, not elsewhere classified Plan Patient is experiencing worsening pain along the low back and bilateral hips. They did have limited range of motion of the lumbar spine along with point tenderness along bilateral SI joints and a positive bilateral Charisma's, Mumtaz's, Gaenslen's, compression and distraction exam. I did discuss with the patient that I do believe they would benefit from bilateral SI injections. Risk and benefits were discussed with the patient and they would like to proceed forward with this option. Patient has tried and failed conservative therapy. Patient has been actively doing conservative treatment including oral medication, heat and ice, topicals, at home exercising and stretching for longer than 12 weeks. Patient is having to adjust their activity based off the increased pain resulting in activity modification. I do believe the patient would benefit from SI injection. Patient did get significant relief with her last set of SI injections in May that did provide 80% relief and have lasted up until about the last week or so. Patient did have overall improved function. Patient may still be a beneficial candidate of a SI fusion in future. Patient has had chronic longstanding back pain for longer than 1 year. This will be a therapeutic injection with less than 1.5 mL solution to be injected. Patient will be scheduled for bilateral SI injections under fluoroscopy. Patient has been instructed to contact the clinic with any concerns before the next appointment. Dr. Hayden has reviewed this note and agrees with this plan of care. This note was dictated using voice recognition software and make contain errors or omissions. All injections are used with Lidocaine or Bupivacaine and dexamethasone unless diagnostic in which no steroids were injected.
== END 2024-08-09 23:59 | disposition home or self-care (01) ==
LOC: SC.PAIN 13:35
PROVIDERS: PCP Nurse Practitioner Family; Visit Provider Nurse Practitioner Family
DX: M46.1 Sacroiliitis, not elsewhere classified (principal); Z96.653 Presence of artificial knee joint, bilateral; Z87.891 Personal history of nicotine dependence; Z73.89 Other problems related to life management difficulty; Z79.899 Other long term (current) drug therapy
CPT/HCPCS: 99212; G0463

== ENCOUNTER 2024-08-11 12:43 | Outpatient (CLI) | payer MEDICARE, OTHER, SELFPAY ==
--- NOTE | 2024-08-11 12:45 | CA_ITS ---
APPROVED REPORT EXAM: Comprehensive 2D, Doppler, and color-flow Echocardiogram Asphalt Mixer: Arlette Gregory RT(R) Ht: 5 ft 6 in Wt: 183lbs BSA: 1.93 BP: 152/74 mmHg Indications: CP, fatigue, syncope, HTN, SOB, HENRY, DMITRY, CAD, DD, pulmonary HTN 2D Dimensions LVEF (Villa's) 56.70 % F: 54 - 74 LV Volume 84.20 mL F: 46 - 106 LV Volume Index 43.6 mL/m2 F: 29 - 61 LA Volume 27.10 mL LA Volume Index 14.04 mL/m2 (M/F) 16-34 EF AP4 61.50 % EF AP2 53.5 % EF BP 56.7 % GL Strain -18.5 % M-Mode Dimensions RVDd 1.89 cm (0.9-2.6) LA Diam 4.19 cm (1.9-4.0) LVDd 4.65 cm (3.5-5.7) LVDs 3.37 cm (3.5-5.7) IVSd 0.68 cm (0.6-1.1) PWd 0.57 cm (0.6-1.1) EF (Teich) 53.50% FS 27.50% EDV (Teich) 99.80 mL ESV (Teich) 46.40 mL LV Diastology E Decel Time 173 (160-240 msec) E/A Ratio 0.71 Mitral Valve MV A Velocity 111.0 (40-130 cm/s) E/A Ratio 0.71 Tricuspid Valve TR P. Velocity 252.00 cm/s Left Ventricle The left ventricle is normal size. The left ventricular systolic function is normal. The left ventricular ejection fraction is within the normal range. There is normal left ventricular wall thickness. There is normal LV segmental wall motion. The left ventricular diastolic function is normal. LVEF is 55%. Right Ventricle The right ventricle is normal size. The right ventricular systolic function is normal. Atria The left atrium size is normal. The right atrium size is normal. There is no Doppler evidence of interatrial shunt. Aortic valve is mildly thickened. Aortic Valve There is no aortic valvular stenosis. No aortic regurgitation is present. Mitral Valve The mitral valve is normal in structure. No evidence of mitral valve stenosis. Mild mitral regurgitation. Tricuspid Valve Tricuspid valve is grossly normal in structure and function. Mild tricuspid regurgitation. RVSP is 25-30 mmHg. Pulmonic Valve The pulmonary valve is normal in structure. Trace pulmonic regurgitation. Great Vessels The aortic root is normal in size. IVC is normal in size and collapses >50% with inspiration. Pericardium There is no pericardial effusion. Other Information Study Quality: Fair Conclusion Normal biventricular systolic function. Mild MR, mild TR. Electronically signed by : Ghada Jo MD 08/20/2024 22:25:05
== END 2024-08-11 23:59 | disposition home or self-care (01) ==
LOC: RT 12:44
PROVIDERS: PCP Nurse Practitioner Family; Visit Provider Internal Medicine
DX: I08.1 Rheumatic disorders of both mitral and tricuspid valves (principal); E83.42 Hypomagnesemia; E05.90 Thyrotoxicosis, unspecified without thyrotoxic crisis or storm; E83.52 Hypercalcemia; I10 Essential (primary) hypertension; E78.5 Hyperlipidemia, unspecified; G47.33 Obstructive sleep apnea (adult) (pediatric); I25.10 Atherosclerotic heart disease of native coronary artery without angina pectoris; I27.20 Pulmonary hypertension, unspecified
CPT/HCPCS: 93306

== ENCOUNTER 2024-09-05 13:36 | Day surgery (SDC) | payer MEDICARE, OTHER, SELFPAY ==
[2024-09-05 13:48] VITALS: BP 151/69; PULSE 95; RESP 18; TEMP 36.5; O2SAT 96; BMI 29.5
[2024-09-05 14:06] VITALS: BP 175/77; PULSE 97; RESP 18; O2SAT 95
[2024-09-05] MEDS: BUPIVACAINE 0.25% 10ML INJ 25 MG IJ (14:06)
[2024-09-05] MEDS: LIDOCAINE 1% 5ML PF VIAL 5 ML (14:06)
[2024-09-05] MEDS: DEXAMETHASONE 10MG/ML 1ML VIAL 10 MG (14:06)
[2024-09-05 14:08] VITALS: BP 168/74; PULSE 85; RESP 18; O2SAT 97
[2024-09-05 14:10] VITALS: BP 175/77; PULSE 97; RESP 18; O2SAT 95
--- NOTE | 2024-09-05 14:19 | P.PCN_ITS ---
Procedure Date: 09/05/24 Time: 13:45 Anesthesiologist:: Ata Sands CRNA Complications:: None Pre-procedure Diagnosis:: Bilateral sacroiliitis Post-procedure Diagnosis:: Same Indications for Procedure:: Patient is a very pleasant 74-year-old female who comes our clinic today for bilateral sacroiliac joint injection cortisone local anesthetic. Patient describes low lumbar back pain off the midline bilaterally. Bilateral posterior hip pain. Difficulty transitioning from sitting to standing. Difficulty with ambulation secondary to bilateral posterior hip pain. She rates her pain 7/10. Procedure Details:: Procedure: Bilateral sacroiliac joint injections under fluoroscopy Informed consent was obtained and the risks and benefits of the procedure were explained to the patient.~ The patient was taken to the procedure room and kyle nvasive monitors were placed including a noninvasive blood pressure cuff and pulse oximeter.~ The patient was placed prone on the procedure table. Both hips were cleansed using Betadine as a cleansing solution. C-arm fluoroscopy was used to view the right sacroiliac joint.~ The skin and subcutaneous tissues were anesthetized using lidocaine 1.5% and a 25-gauge needle.~ After this, a 22-gauge spinal needle was inserted under fluoroscopic guidance into the inferior aspect of the right sacroiliac joint.~ Omnipaque dye was injected and good spread was seen throughout the joint.~ After this, approximately 5 mL of bupivacaine, 0.25% and Depo-Medrol, 40 mg was incrementally injected into the right sacroiliac joint. We then moved to the left sacroiliac joint.~ The skin and subcutaneous tissues were anesthetized using lidocaine 1.5% and a 25-gauge needle.~ After this, a 22- gauge spinal needle was inserted under fluoroscopic guidance into the inferior aspect of the left sacroiliac joint.~ Omnipaque dye was injected and good spread was seen throughout the joint. After this, approximately 5 mL of bupivacaine, 0.25% and Depo-Medrol, 40 mg was incrementally injected into the left sacroiliac joint.~ The patient tolerated the procedure well with no complications. The patient was observed in the Pain Clinic and then was discharged home neurologically intact. Plan and Disposition:: Patient was discharged without incident.
== END 2024-09-05 14:08 | disposition home or self-care (01) ==
PROVIDERS: PCP Nurse Practitioner Family; Visit Provider Nurse Anesthetist, Certified Registered
DX: M46.1 Sacroiliitis, not elsewhere classified (principal); E78.5 Hyperlipidemia, unspecified; I10 Essential (primary) hypertension; M79.7 Fibromyalgia; K21.9 Gastro-esophageal reflux disease without esophagitis; E03.9 Hypothyroidism, unspecified; H40.9 Unspecified glaucoma; F32.9 Major depressive disorder, single episode, unspecified; G47.33 Obstructive sleep apnea (adult) (pediatric); Z79.899 Other long term (current) drug therapy; Z88.6 Allergy status to analgesic agent; Z87.891 Personal history of nicotine dependence
CPT/HCPCS: G0260; J0665; J1100; J2003

== ENCOUNTER 2024-10-31 14:30 | Emergency (ER) | payer MEDICARE, OTHER, SELFPAY ==
[2024-10-31] VITALS (14 sets, daily range): BP systolic 125–158; BP diastolic 50–68; PULSE 68–75; RESP 16–18; TEMP 36.6; O2SAT 96–99; BMI 27.4
--- OUTSIDE RECORDS SUMMARY | 2024-10-31 14:47 | XMS_ITS | Clinical Summary ---
Author Organization [facility] Address [address] [place] [address] Care Team Providers Care Ct Manager Name Role Phone Gricelda Amaya APRN Primary Care Provider [phone] Allergies Active Allergy Reactions Criticality Noted Date Comments Naproxen Unknown - Patient st ates they do not know rxn details Low 03/25/2011 Medications amitriptyline (Elavil) 25 MG tablet 2 Active ARIPiprazole (Abilify) 5 MG tablet 2 Active bisoprolol (Zebeta) 5 MG tablet 2 Active fenofibrate micronized (Lofibra) 134 MG capsule 2 Active hydroCHLOROthia zide (HYDRODiuril) 12.5 MG tablet 2 Active hydrOXYzine HCl (Atarax) 25 MG tablet 2 Active losartan (Cozaar) 25 MG tablet 2 Active methIMAzole (Tapazole) 5 MG tablet 2 Active omeprazole (PriLOSEC) [address] capsule 2 Active pantoprazole (Protonix) 40 MG EC tablet 2 Active pramipexole (Mirapex) 0.25 MG tablet 2 Active rosuvastatin (Crestor) 10 MG tablet 2 Active sertraline (Zoloft) 50 MG tablet 2 Active Viibryd 40 MG tablet 2 Active traMADol (Ultram) 50 MG tablet 2 Active HYDROcodone-kimber taminophen ([place]) 7.5-325 MG tablet 4 Active brimonidine-fab olol (Combigan) 0.2-0.5 % ophthalmic solution Administer 1 drop into both eyes 2 (two) times a day. 15 mL 3 4 Active Azopt 1 % ophthalmic suspension Administer 1 drop into both eyes 3 (three) times a day. 20 mL 3 4 Active bimatoprost (Lumigan) 0.03 % ophthalmic solution Administer 1 drop into both eyes every night. 7.5 mL 3 4 Active Active Problems Problem Noted Date Diagnosed Date Dermatochalasis of both lower eyelids 07/26/2024 Dry eyes 07/26/2024 Ptosis of both eyelids 01/18/2024 MCI (mild cognitive impairment) 01/12/2024 Chronic tension-type headache, not intractable 0 09/15/2023 Dyspnea on exertion 09/15/2023 HTN (hypertension) 09/15/2023 DMITRY (obstructive sleep apnea) 09/15/2023 RLS (restless legs syndrome) 09/15/2023 Sinus bradycardia 09/15/2023 Osteoarthritis 10/11/2022 10/11/2022 Fibromyalgia 06/12/2022 Primary open-angle glaucoma, bilateral, severe s tage 12/20/2021 After cataract not obscuring vision, bilateral 1 Prediabetes 03/04/2017 Family History Medical History Relation Name Comments Glaucoma Paternal Grandfather Relation Name Status Comments Paternal Grandfather Social History Tobacco Use Types Packs/Day Years Used Date Smoking Tobacco: Never Passive Smoke Exposure: Never Smokeless Tobacco: Never Tobacco Cessation:Counseling Given: Not Answered Comments Unknown Sex and Gender Information Value Date Recorded Sex Assigned at Not on file Legal Sex Female 7:28 PM EDT Gender Identity Not on file Sexual Orientation Not on file Plan of Treatment Upcoming Encounters Date Type Department Care Team (Late st Contact Info) Description 12/28/2024 1:00 PM EDT Office Visit [facility] [address] [place] [address] Kristen Estrada MD [address] [address] 01/30/2025 11:00 AM EST Office Visit [facility] [address] [place] [address] Lei Dickinson MD [address] [place] [address] Health Maintenance Due Date Last Done Comments [facility]-Bone Density Scan 1950 [facility]-Depression Screening 1951 [facility]-Diabetes: Hemoglobin A1C 1950 [facility]-Hepatitis C Screening 1950 [facility]-Medicare Annual Wellness (AWV) 1950 [facility]-/Child/Adol SDOH Screenings 1950 [facility]- SDOH Screenings 1969 [facility]-Adult SDOH Screenings 1969 [facility]-DTaP,Tdap,and Td Vaccines (1 - Tdap) 1970 CT Colonography 1996 Colonoscopy 1996 FIT-DNA 1996 FIT 1996 FOBT 1996 Sigmoidoscopy 1996 [facility]-Colorectal Cancer Screening 1996 [facility]-Breast Cancer Screening 2001 [facility]-Pneumococcal Vaccine: 50+ Years (1 of 1 - PCV) 2001 [id number] Vaccine ( season) 2023 01/21/2023, 12/24/2021, 02/19/2021, Additional history exists [facility]-Influenza Vaccine (#1) 11/20/202401/16, 01/21/2023, 12/24/2021, Additional history exists [facility]-RSV Vaccine: 60+ Years or (1 - 1-dose 75+ series) 2026 [facility]-Zoster Vaccines Completed 06/06/2024, 5 HPV Vaccines Aged Out No longer eligi ble based on patient's age to complete this topic [facility]-HIB Vaccines Aged Out No longer e ligible based on patient's age to complete this topic [facility]-Hepatitis A Vaccines Aged Out No longer eligible based on patient's age to complete this topic [facility]-IPV Vaccines Aged Out No longer e ligible based on patient's age to complete this topic [facility]-Rotavirus Vaccines Aged Out No lo nger eligible based on patient's age to complete this topic Insurance [address] [place] [address] [facility] [place] [address] Manager Relationship Specialty Start Date End Date Gricelda Amaya APRN [address] [place] [address] PCP - General 12/11/21
--- NOTE | 2024-10-31 15:00 | CT_ITS ---
PROCEDURE INFORMATION: Exam: CT Abdomen And Pelvis With Contrast Exam date and time: 10/31/2024 3:47 PM Age: 74 years old Clinical indication: Abdominal pain; Other: Left; Additional info: Left abdominal pain TECHNIQUE: Imaging protocol: Computed tomography of the abdomen and pelvis with contrast. Radiation optimization: All CT scans at this facility use at least one of these dose optimization techniques: automated exposure control; mA and/or kV adjustment per patient size (includes targeted exams where dose is matched to clinical indication); or iterative reconstruction. Contrast material: ISOVUE; Contrast volume: 80 ml; Contrast route: IV; COMPARISON: CR XR HIP RT 2-3V W/PELVIS 04/21/2024 3:43 PM FINDINGS: Tubes, catheters and devices: Mild intrahepatic and extrahepatic biliary dilatation with CBD measuring up to 16 mm in diameter having differential diagnosis of reservoir physiology status post cholecystectomy, less likely biliary obstruction. Diaphragm: A small sliding hiatal hernia is present. Liver: Normal. No mass. Gallbladder and biliary ducts: There are surgical clips within the gallbladder fossa. Pancreas: Normal. No ductal dilation. Spleen: Normal. No splenomegaly. Adrenal glands: Normal. No mass. Kidneys and ureters: Normal. No hydronephrosis. Stomach and bowel: Unremarkable. No obstruction. No mucosal thickening. Appendix: No evidence of appendicitis. Intraperitoneal space: Unremarkable. No free air. No significant fluid collection. Vasculature: Moderate calcific atherosclerotic disease of the abdominal aorta without aneurysmal dilatation is present. Lymph nodes: Unremarkable. No enlarged lymph nodes. Urinary bladder: Unremarkable as visualized. Reproductive: The uterus appears surgically absent. Bones/joints: Moderate loss of intervertebral disc space with degenerative changes involving lower thoracic and lumbar spine greatest at L5-S1. Soft tissues: Normal. IMPRESSION: No acute findings.
--- NOTE | 2024-10-31 15:00 | XR_ITS ---
FINAL REPORT CLINICAL HISTORY: short of breath FINDINGS: A single PA view of the chest was obtained. There is no prior exam for comparison. The cardiac and mediastinal silhouettes are within normal limits. The lungs are clear. There is no effusion or pneumothorax. IMPRESSION: No radiographic evidence of acute cardiac or pulmonary disease on this single view of the chest. Reviewed, Interpreted and Dictated by Airam Leal MD Transcribed by Linda Copeland Authenticated and [facility]
[2024-10-31 15:08] LABS: Hematocrit 37.5 % (37.0-47.0); Hemoglobin 11.9 g/dL (12.2-16.2); Immature Granulocytes % 1.4 %; Mean Corpuscular HGB Conc 31.7 g/dL (31.8-35.4); Mean Corpuscular Hemoglobin 25.9 pg (27.0-31.2); Mean Corpuscular Volume 81.5 fl (81-99); Nucleated Red Blood Cells % 0 %; Platelet Count 474 K/mm3 (142-424); Red Blood Count 4.60 M/mm3 (4.20-5.40); Red Cell Distribution Width-SD 44.1 fL; White Blood Count 9.9 K/mm3 (4.8-10.8)
[2024-10-31] MEDS: SODIUM CHLORIDE 0.9% 10ML VIAL 10 ML IV (15:15)
[2024-10-31] MEDS: 0.9 % SODIUM CHLORIDE 1000ML 1,000 ML 999 ML IV (15:15)
[2024-10-31] MEDS: PANTOPRAZOLE 40MG VIAL 40 MG IV (15:15)
[2024-10-31 15:18] LABS: Coronavirus 19, PCR Not Detected (NotDetected); Influenza A, PCR Not Detected (NotDetected); Influenza B, PCR Not Detected (NotDetected)
--- NOTE | 2024-10-31 15:18 | ED_ITS ---
<Statement entered by Orlando Seaman MD - 11/01/24 15:35> I was consulted by the ARCHANA, and we discussed the complexity of the problems being addressed. I approved the treatment and management plan for this patient's care in the emergency department, thus performing a substantive portion of the medical decision making. Orlando Seaman MD, FLAVIO, FACEP Discharge Plan Disposition Patient Disposition: Home, Self-Care Prescriptions Prescriptions: New nitrofurantoin monohyd/m-cryst [Macrobid] 100 mg capsule 100 mg PO BID 7 Days Qty: 14 0RF Rx Instructions: must administer with a meal/food No Action multivitamin Tablet 1 tab PO DAILY bimatoprost 0.03 % drops 1 drp Eye-Both DAILY fenofibrate micronized 134 mg capsule 134 mg PO DAILY 90 Days Qty: 90 3RF hydrochlorothiazide 12.5 mg tablet 12.5 mg PO DAILY Qty: 90 3RF Rx Instructions: TAKE 1 TABLET DAILY losartan 25 mg tablet 25 mg PO DAILY 90 Days Qty: 90 1RF pantoprazole 40 mg tablet,delayed release (DR/EC) 40 mg PO DAILY Qty: 90 3RF cyclobenzaprine 10 mg tablet 10 mg PO BID PRN (Reason: muscle spasm) Qty: 60 0RF lidocaine [Lidoderm] 5 % adhesive patch,medicated 1 patch topical DAILY Qty: 30 0RF Rx Instructions: leave on most painful area for up to 12 hrs albuterol sulfate 90 mcg/actuation HFA aerosol inhaler 2 puff inhalation Q4-6H PRN (Reason: shortness of breath or wheezing) Qty: 6.7 0RF magnesium glycinate 100 mg tablet 400 mg PO DAILY methimazole 10 mg tablet 10 mg PO DAILY bupropion HCl 75 mg tablet 75 mg PO DAILY Qty: 30 2RF bisoprolol fumarate 10 mg tablet 15 mg PO DAILY 90 Days Qty: 135 3RF lamotrigine 25 mg tablet 25 mg PO DAILY aripiprazole 10 mg tablet 10 mg PO DAILY amitriptyline 25 mg tablet 25 mg PO HS MDD 25 mg 90 Days Qty: 90 3RF Rx Instructions: 1 hour before bedtime brinzolamide [Azopt] 1 % drops,suspension 1 drp ophthalmic (eye) BID hydrocodone-acetaminophen 7.5-325 mg tablet 1 tab PO TID PRN (Reason: Pain, Moderate) brimonidine-timolol [Combigan] 0.2-0.5 % drops 3 drp ophthalmic (eye) TID pramipexole 0.25 mg tablet 0.25 mg PO HS 90 Days Qty: 90 3RF Rx Instructions: May increase up to 2 tabs 2 hours before bedtime hydroxyzine HCl 25 mg tablet 25 mg PO TID PRN (Reason: antihistamine) Qty: 90 2RF rosuvastatin [Crestor] 20 mg tablet 20 mg PO DAILY Qty: 30 2RF vilazodone [Viibryd] 40 mg tablet 40 mg PO DAILY Qty: 90 1RF Rx Instructions: must administer with a meal/food Rexulti 0.5 mg tablet 0.5 mg PO DAILY Qty: 30 2RF clopidogrel [Plavix] 75 mg Tablet 75 mg PO DAILY Qty: 30 6RF aspirin 81 mg Tablet,Chewable 81 mg PO DAILY Qty: 30 6RF rabeprazole [AcipHex] 20 mg tablet,delayed release (DR/EC) 20 mg PO DAILY Referrals Follow up/Referrals: Gricelda Amaya APRN [Primary Care Provider, Medical] - See instructions Activity Restrictions/Add. Instructions Additional Instructions/Restrictions: Increase fluids and rest. Drink plenty of water. Take medication as directed. Please follow-up with PCP. If not improving please return to the ED Clinical Impressions Clinical Impression: Viral syndrome Instructions Patient Instructions: DI for Urinary Tract Infection (UTI), DI for Acute Abdominal Pain Print Language Print Language: Ghanaian Discharge ED Provider: Orlando Seaman General Adult HPI <Mackenzie Fernandez (ED), MARCELO - Last Filed: 10/31/24 22:33> General Chief complaint: Abdominal Pain Stated complaint: weight loss ,diarrhea,uti Time Seen by Provider: 10/31/24 14:50 History of Present Illness HPI narrative: 74-year-old female presents to the ED today for complaint of dizziness, diarrhea over the last 10 days. She has left upper quadrant pain and nausea. She says she started with a fever of 102. She has been sick for 10 days. She has lost 14 pounds in that timeframe. She was seen by her PCP but blood pressure was low in the office so she was sent to the ER for evaluation. Blood pressure on arrival today was initially 104/76 then repeat was 125/58. Patient alert and oriented x 4. She appears well but does have left upper quadrant pain. And complaining of just feeling bad. Related Data Home Medications ?Medication ?Instructions ?Recorded ?Confirmed multivitamin 1 tab PO DAILY Supplement 10/31/24 rabeprazole 20 mg tablet,delayed 20 mg PO DAILY Reflux /Acid reflux 01/16/22 10/31/24 release (AcipHex) brimonidine 0.2 %-timolol 0.5 % 3 drp ophthalmic (eye) TID 10/12/23 10/31/24 eye drops (Combigan) brinzolamide 1 % eye 1 drp ophthalmic (eye) BID 0 10/12/23 10/31/24 drops,suspension (Azopt) hydrocodone 7.5 mg-acetaminophen 1 tab PO TID PRN Pain , Moderate 10/12/23 10/31/24 325 mg tablet bimatoprost 0.03 % eye drops 1 drp Eye-Both DAILY 01/2010/31/24 magnesium glycinate 100 mg (as 400 mg PO DAILY 10/31/24 glycinate) tablet methimazole 10 mg tablet 10 mg PO DAILY 07/31/2410/20 aripiprazole 10 mg tablet 10 mg PO DAILY 10/31/2410/20 lamotrigine 25 mg tablet 25 mg PO DAILY 10/31/2410/20 Previous Rx's ?Medication ?Instructions ?Recorded pramipexole 0.25 mg tablet 0.25 mg PO HS RLS 90 days # 90 tabs 10/12/23 amitriptyline 25 mg tablet 25 mg PO HS headache 90 day s #90 11/15/23 tabs fenofibrate micronized 134 mg 134 mg PO DAILY Choleste rol 90 01/17/24 capsule days #90 caps hydrochlorothiazide 12.5 mg tablet 12.5 mg PO DAILY BP #90 tabs 01/17/24 losartan 25 mg tablet 25 mg PO DAILY 90 days #90 t abs 01/17/24 pantoprazole 40 mg tablet,delayed 40 mg PO DAILY #90 t abs 01/17/24 release vilazodone 40 mg tablet (Viibryd) 40 mg PO DAILY #90 t abs 01/28/24 cyclobenzaprine 10 mg tablet 10 mg PO BID PRN muscle s pasm #60 04/25/24 tabs lidocaine 5 % topical patch 1 patch topical DAILY #30 ea 04/25/24 (Lidoderm) aspirin 81 mg chewable tablet 81 mg PO DAILY #30 tabs 05/11/24 clopidogrel 75 mg tablet (Plavix) 75 mg PO DAILY #30 t abs 05/11/24 hydroxyzine HCl 25 mg tablet 25 mg PO TID PRN antihist amine #90 05/15/24 tabs albuterol sulfate 90 mcg/actuation 2 puff inhalation Q 4-6H PRN 05/30/24 aerosol inhaler shortness of breath or wheez ing #6.7 grams rosuvastatin 20 mg tablet (Crestor) 20 mg PO DAILY #30 tabs 06/08/24 bupropion HCl 75 mg tablet 75 mg PO DAILY #30 tabs bisoprolol fumarate 10 mg tablet 15 mg (1.5 x 10 mg) P O DAILY 90 09/18/24 days #135 tabs brexpiprazole 0.5 mg tablet 0.5 mg PO DAILY #30 tabs 0 10/12/24 (Rexulti) nitrofurantoin 100 mg PO BID 7 days #14 cap s 10/31/24 monohydrate/macrocrystals 100 mg capsule (Macrobid) Allergies Allergy/AdvReac Type Severity Reaction Status Date / Time naproxen (From ALEVE) Allergy Severe S-DIFF. Verified 10/31/24 13:50 BREATHING PFSH <Mackenzie Fernandez (ED), PRESS TENDER - Last Filed: 10/31/24 22:33> [facility] Disclaimer: The information contained in this section may have been updated after the patient was seen, as this information can be updated by other users. 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 AHI 4, RDI 11. Intolerance to CPAP, no interest in other treatment options, working on lifestyle modifications. Overnight oximetry did not indicate hypoxemia or hypercapnia. Restless sleeper Daytime somnolence Snoring Headache Nearly asymptomatic as long as she is taking amitriptyline 25 mg p.o. nightly. Recurrent symptoms since running out of medication, did not notify clinic. Reluctant to consider changing medications despite of MCI. Surgical History History of trabeculectomy bilateral History of total knee replacement jose martin knee replacement History of surgery jaw surgery History of esophagogastroduodenoscopy (EGD) History of cataract surgery History of cholecystectomy Hx of appendectomy H/O total hysterectomy Family History Other Cancer Coronary artery disease Diabetes Heart attack Hyperlipidemia Hypertension Stroke Social History (Updated 10/31/24 @ 14:01 by Martha Mendoza [facility]) Smoking Status: Never smoker years smoked: 1 smoking status stop date: 1994 second hand exposure: No alcohol intake: never substance use type: denies use current occupational status: retired Travel in the last 8 weeks?: None household members: spouse housing: house marital status: number of children: 4 current occupation: [employer] current occupational exposures/hazards: Yes caffeine: Yes Other Medical History Have you received the Flu Vaccine for this season: No Have you received the Pneumonia Vaccine: Yes <Mackenzie Fernandez (ED), PRESS TENDER - Last Filed: 10/31/24 22:33> ROS Obtained: Yes Systems reviewed as appropriate & no additional complaints except as documented Constitutional Constitutional: Reports as per HPI Physical Exam <Mackenzie Fernandez (ED), PRESS TENDER - Last Filed: 10/31/24 22:33> General General appearance: alert Head Head exam: atraumatic and normocephalic Eye Eye exam: Present PERRL and EOMI ENT ENT exam: Present normal oropharynx and mucous membranes moist Neck Neck exam: Present full ROM and trachea midline Respiratory Respiratory exam: Present normal lung sounds bilaterally Cardiovascular Cardiovascular exam: Present regular rate, normal rhythm, normal heart sounds, +S1 and +S2 Abdominal Exam Abdominal exam: Present soft and normal bowel sounds Extremities Exam Extremities exam: Present full ROM and normal capillary refill Neurological Exam Neurological exam: Present alert and oriented X3 Skin Skin exam: Present warm, dry and intact Medical Decision Making <Mackenzie Fernandez (ED), PRESS TENDER - Last Filed: 10/31/24 22:33> Medical Records Screening: Per USPSTF and CDC recommendations, given the prevalence of disease in our region, it is our hospital?s policy to screen for HIV and viral Hepatitis for all patients aged 18 and over and those with ongoing risk factors. Mervin Inquiry Pt receiving controlled substance: No Mervin was queried for this patient: No Vital Signs: 10/31/24 15:00 10/31/24 15:22 10/31/24 15:30 Temperature 97.8 F Temperature Source Oral Pulse Rate 68 68 Pulse Rate [Right] 75 Respiratory Rate 18 Blood Pressure 125/58 L 134/62 Blood Pressure [Right Arm] 135/68 Blood Pressure Mean Blood Pressure Mean [Right Arm] 90 Blood Pressure Source Blood Pressure Position 02 Sat by Pulse Oximetry 96 97 98 Oxygen Delivery Method Room Air 10/31/24 16:00 10/31/24 16:30 10/31/24 17:00 Temperature Temperature Source Pulse Rate 72 68 70 Pulse Rate [Right] Respiratory Rate Blood Pressure 158/68 H 141/67 H 158/66 H Blood Pressure [Right Arm] Blood Pressure Mean Blood Pressure Mean [Right Arm] Blood Pressure Source Blood Pressure Position 02 Sat by Pulse Oximetry 98 97 99 Oxygen Delivery Method 10/31/24 17:47 10/31/24 18:00 10/31/24 18:30 Temperature Temperature Source Pulse Rate 68 68 70 Pulse Rate [Right] Respiratory Rate Blood Pressure 145/58 H 148/59 H 131/50 L Blood Pressure [Right Arm] Blood Pressure Mean Blood Pressure Mean [Right Arm] Blood Pressure Source Blood Pressure Position 02 Sat by Pulse Oximetry 98 97 98 Oxygen Delivery Method 10/31/24 19:00 10/31/24 19:00 10/31/24 19:33 Temperature Temperature Source Pulse Rate 69 Pulse Rate [Right] Respiratory Rate Blood Pressure 131/50 L 136/66 Blood Pressure [Right Arm] Blood Pressure Mean 89 79 Blood Pressure Mean [Right Arm] Blood Pressure Source Blood Pressure Position 02 Sat by Pulse Oximetry 96 Oxygen Delivery Method 10/31/24 19:34 10/31/24 19:45 10/31/24 19:56 Temperature 97.8 F Temperature Source Pulse Rate 71 73 71 Pulse Rate [Right] Respiratory Rate 16 Blood Pressure 136/66 Blood Pressure [Right Arm] Blood Pressure Mean Blood Pressure Mean [Right Arm] Blood Pressure Source Automatic Cuff Blood Pressure Position Sitting 02 Sat by Pulse Oximetry 98 98 Oxygen Delivery Method Room Air Lab Data Lab Results 10/31/24 15:00: WBC 9.9, RBC 4.60, Hgb 11.9 L, Hct 37.5, MCV 81.5, MCH 25.9 L, M CHC 31.7 L, RDW 14.9, Plt Count 474 H, MPV 11.3 H, Neut % (Auto) 67.6, Lymph % (Auto) 21.1, [place] % (Auto) 8.2, Eos % (Auto) 1.3, Baso % (Auto) 0.4, Neut # (Auto) 6.7, Lymph # (Auto) 2.1, [place] # (Auto) 0.8, Eos # (Auto) 0.1, Baso # (Auto) 0.0, Sodium 140, Potassium 4.5, Chloride 102, Carbon Dioxide 27, Anion Gap 15.5 H, BUN 28 H, Creatinine 0.80, Estimated Creat Clear 61, Estimated GFR 70, Est GFR ( Amer) 85, Glucose 112 H, Calcium 10.2, Magnesium 2.0, Total Bilirubin 0.5, AST 33, ALT 32, Alkaline Phosphatase 116, Troponin I < 0.01, Total Protein 7.8, Albumin 4.0, Globulin 3.8 H, Albumin/Globulin Ratio 1.1, Lipase 238, SARS-CoV-2 (PCR) Not detected, HCV Ab LEANDRA w/Rflx PCR Qn Negative, HIV Ag/Ab Combo Qual Negative, Influenza A Untype (PCR) Not detected, Influenza Type B (PCR) Not detected 10/31/24 17:47: Urine Color Yellow, Urine Appearance Clear, Urine pH 6.0, Ur Specific [place] <= 1.005, Urine Protein Negative, Urine Glucose (UA) Negative, Urine Ketones Negative, Urine Blood Negative, Urine Nitrate Positive A, Urine Bilirubin Negative, Urine Urobilinogen 0.2, Ur Leukocyte Esterase 2+ A, Urine RBC None, Urine WBC 10-20, Ur Squamous Epith Cells Occasional, Urine Bacteria 4+ 10/31/24 15:00 10/31/24 15:00 Orders (Tests/Meds): ED MEDICATIONS Discontinued Medications Generic Name Dose Route Start Last Admin Trade Name Freq PRN Reason Stop Dose Admin Sodium Chloride 1,000 mls @ 999 mls/hr 10/31/24 15:00 10/31/24 15:15 Sod Chlor 0.9% 1000ml Bag IV 10/31/24 16:00 999 mls/hr .Q1H1M ONE Administration Ceftriaxone Sodium 2 gm/ 100 mls @ 200 mls/hr 10/31/24 19:15 10/31/24 19:28 Sodium Chloride IV 11/10/24 19:14 200 mls/hr Q24H GRISEL Administration Iopamidol 75 ml 10/31/24 15:48 10/31/24 15:50 Iopamidol-370 (76%);100ml Bottle IV 10/31/24 15:49 75 ml ONCE ONE Administration Pantoprazole Sodium 40 mg 10/31/24 15:00 10/31/24 15:15 Pantoprazole 40mg Vial IV 10/31/24 15:01 40 mg ONCE ONE Administration Sodium Chloride 10 ml 10/31/24 15:00 10/31/24 15:15 Sodium Chloride 0.9% 10ml Vial IV 11/30/24 14:59 10 ml NEEDED PRN Administration dilute protonix Sodium Chloride 10 ml 10/31/24 15:48 10/31/24 15:50 Sodium Chloride 0.9% 10ml Syr (Rad Only) IV 10/31/24 15:49 10 ml ONCE ONE Administration ORDERS Category Date Time Status CT abdomen pelvis w con Stat Cat Scan 10/31/24 15:00 Completed Chest XR -- portable [XR chest portable] Stat Exams 10/31/24 15:00 Completed CBC [Complete Blood Count Auto Diff] Stat Lab 10/31/24 15:00 Completed Comprehensive Metabolic Panel Stat Lab 10/31/24 15:00 Completed HIV Combo Stat Lab 10/31/24 15:00 Completed Hepatitis C Ab Qual. W/ RFX Stat Lab 10/31/24 15:00 Completed Lipase Stat Lab 10/31/24 15:00 Completed Magnesium Stat Lab 10/31/24 15:00 Completed Rapid PCR Covid and Flu A/B Stat Lab 10/31/24 15:00 Completed Trop I [Troponin I] Stat Lab 10/31/24 15:00 Completed Urinalysis and Microscopic Stat Lab 10/31/24 17:47 Completed Urine Culture Stat Micro 10/31/24 17:47 Results Medical Decision Narrative: patient is a 74-year-old female presenting to the emergency department for evaluation of left upper quadrant abdominal pain, 10 days of diarrhea and 14 pound weight loss within 10 days. Patient is hemodynamically stable and nontoxic-appearing upon arrival, afebrile. Differential diagnosis includes diverticulitis, viral illness, among others. Workup will be conducted with hematologic labs, specific imaging, provocative tests. Initial inventions include crystalloid bolus, analgesics, antibiotics. Initial workup reviewed by me hematologic labs are remarkable for nitrate positive UTI, normal white count, glucose 474. Otherwise normal labs. CT was negative for acute disease. Patient and I discussed treatment for UTI. Patient is safe for discharge home. She will follow-up with PCP. <Orlando Seaman MD - Last Filed: 11/01/24 15:38> Vital Signs: 10/31/24 15:00 10/31/24 15:22 10/31/24 15:30 Temperature 97.8 F Temperature Source Oral Pulse Rate 68 68 Pulse Rate [Right] 75 Respiratory Rate 18 Blood Pressure 125/58 L 134/62 Blood Pressure [Right Arm] 135/68 Blood Pressure Mean Blood Pressure Mean [Right Arm] 90 Blood Pressure Source Blood Pressure Position 02 Sat by Pulse Oximetry 96 97 98 Oxygen Delivery Method Room Air 10/31/24 16:00 10/31/24 16:30 10/31/24 17:00 Temperature Temperature Source Pulse Rate 72 68 70 Pulse Rate [Right] Respiratory Rate Blood Pressure 158/68 H 141/67 H 158/66 H Blood Pressure [Right Arm] Blood Pressure Mean Blood Pressure Mean [Right Arm] Blood Pressure Source Blood Pressure Position 02 Sat by Pulse Oximetry 98 97 99 Oxygen Delivery Method 10/31/24 17:47 10/31/24 18:00 10/31/24 18:30 Temperature Temperature Source Pulse Rate 68 68 70 Pulse Rate [Right] Respiratory Rate Blood Pressure 145/58 H 148/59 H 131/50 L Blood Pressure [Right Arm] Blood Pressure Mean Blood Pressure Mean [Right Arm] Blood Pressure Source Blood Pressure Position 02 Sat by Pulse Oximetry 98 97 98 Oxygen Delivery Method 10/31/24 19:00 10/31/24 19:00 10/31/24 19:33 Temperature Temperature Source Pulse Rate 69 Pulse Rate [Right] Respiratory Rate Blood Pressure 131/50 L 136/66 Blood Pressure [Right Arm] Blood Pressure Mean 89 79 Blood Pressure Mean [Right Arm] Blood Pressure Source Blood Pressure Position 02 Sat by Pulse Oximetry 96 Oxygen Delivery Method 10/31/24 19:34 10/31/24 19:45 10/31/24 19:56 Temperature 97.8 F Temperature Source Pulse Rate 71 73 71 Pulse Rate [Right] Respiratory Rate 16 Blood Pressure 136/66 Blood Pressure [Right Arm] Blood Pressure Mean Blood Pressure Mean [Right Arm] Blood Pressure Source Automatic Cuff Blood Pressure Position Sitting 02 Sat by Pulse Oximetry 98 98 Oxygen Delivery Method Room Air Lab Data Lab Results 10/31/24 15:00: WBC 9.9, RBC 4.60, Hgb 11.9 L, Hct 37.5, MCV 81.5, MCH 25.9 L, M CHC 31.7 L, RDW 14.9, Plt Count 474 H, MPV 11.3 H, Neut % (Auto) 67.6, Lymph % (Auto) 21.1, [place] % (Auto) 8.2, Eos % (Auto) 1.3, Baso % (Auto) 0.4, Neut # (Auto) 6.7, Lymph # (Auto) 2.1, [place] # (Auto) 0.8, Eos # (Auto) 0.1, Baso # (Auto) 0.0, Sodium 140, Potassium 4.5, Chloride 102, Carbon Dioxide 27, Anion Gap 15.5 H, BUN 28 H, Creatinine 0.80, Estimated Creat Clear 61, Estimated GFR 70, Est GFR ( Amer) 85, Glucose 112 H, Calcium 10.2, Magnesium 2.0, Total Bilirubin 0.5, AST 33, ALT 32, Alkaline Phosphatase 116, Troponin I < 0.01, Total Protein 7.8, Albumin 4.0, Globulin 3.8 H, Albumin/Globulin Ratio 1.1, Lipase 238, SARS-CoV-2 (PCR) Not detected, HCV Ab LEANDRA w/Rflx PCR Qn Negative, HIV Ag/Ab Combo Qual Negative, Influenza A Untype (PCR) Not detected, Influenza Type B (PCR) Not detected 10/31/24 17:47: Urine Color Yellow, Urine Appearance Clear, Urine pH 6.0, Ur Specific [place] <= 1.005, Urine Protein Negative, Urine Glucose (UA) Negative, Urine Ketones Negative, Urine Blood Negative, Urine Nitrate Positive A, Urine Bilirubin Negative, Urine Urobilinogen 0.2, Ur Leukocyte Esterase 2+ A, Urine RBC None, Urine WBC 10-20, Ur Squamous Epith Cells Occasional, Urine Bacteria 4+ Orders (Tests/Meds): ED MEDICATIONS Discontinued Medications Generic Name Dose Route Start Last Admin Trade Name Freq PRN Reason Stop Dose Admin Sodium Chloride 1,000 mls @ 999 mls/hr 10/31/24 15:00 10/31/24 15:15 Sod Chlor 0.9% 1000ml Bag IV 10/31/24 16:00 999 mls/hr .Q1H1M ONE Administration Ceftriaxone Sodium 2 gm/ 100 mls @ 200 mls/hr 10/31/24 19:15 10/31/24 19:28 Sodium Chloride IV 11/10/24 19:14 200 mls/hr Q24H GRISEL Administration Iopamidol 75 ml 10/31/24 15:48 10/31/24 15:50 Iopamidol-370 (76%);100ml Bottle IV 10/31/24 15:49 75 ml ONCE ONE Administration Pantoprazole Sodium 40 mg 10/31/24 15:00 10/31/24 15:15 Pantoprazole 40mg Vial IV 10/31/24 15:01 40 mg ONCE ONE Administration Sodium Chloride 10 ml 10/31/24 15:00 10/31/24 15:15 Sodium Chloride 0.9% 10ml Vial IV 11/30/24 14:59 10 ml NEEDED PRN Administration dilute protonix Sodium Chloride 10 ml 10/31/24 15:48 10/31/24 15:50 Sodium Chloride 0.9% 10ml Syr (Rad Only) IV 10/31/24 15:49 10 ml ONCE ONE Administration ORDERS Category Date Time Status CT abdomen pelvis w con Stat Cat Scan 10/31/24 15:00 Completed Chest XR -- portable [XR chest portable] Stat Exams 10/31/24 15:00 Completed CBC [Complete Blood Count Auto Diff] Stat Lab 10/31/24 15:00 Completed Comprehensive Metabolic Panel Stat Lab 10/31/24 15:00 Completed HIV Combo Stat Lab 10/31/24 15:00 Completed Hepatitis C Ab Qual. W/ RFX Stat Lab 10/31/24 15:00 Completed Lipase Stat Lab 10/31/24 15:00 Completed Magnesium Stat Lab 10/31/24 15:00 Completed Rapid PCR Covid and Flu A/B Stat Lab 10/31/24 15:00 Completed Trop I [Troponin I] Stat Lab 10/31/24 15:00 Completed Urinalysis and Microscopic Stat Lab 10/31/24 17:47 Completed Urine Culture Stat Micro 10/31/24 17:47 Results Medical Decision Narrative: patient is a 74-year-old female presenting to the emergency department for evaluation of left upper quadrant abdominal pain, 10 days of diarrhea and 14 pound weight loss within 10 days. Patient is hemodynamically stable and nontoxic-appearing upon arrival, afebrile. Differential diagnosis includes diverticulitis, viral illness, among others. Workup will be conducted with hematologic labs, specific imaging, provocative tests. Initial inventions include crystalloid bolus, analgesics, antibiotics. Initial workup reviewed by me hematologic labs are remarkable for nitrate positive UTI, normal white count, glucose 474. Otherwise normal labs. CT was negative for acute disease. Patient and I discussed treatment for UTI. Patient is safe for discharge home. She will follow-up with PCP. This is Dr. Seaman signing notes on 11/01/2024 and noticed that prescription was sent in for nitrofurantoin which does not get good renal penetration and with a fever this would be that by definition pyelonephritis which involves the kidneys. We will change the prescription from nitrofurantoin to cefdinir for better coverage. Mackenzie Fernandez. I was consulted by the ARCHANA, and we discussed the complexity of the problems being addressed. I approved the treatment and management plan for this patient's care in the emergency department, thus performing a substantive portion of the medical decision making. Orlando Seaman MD, FLAVIO, FACEP Critical Care <Mackenzie Fernandez (ED), PRESS TENDER - Last Filed: 10/31/24 22:33> Critical Care Time Critical Care Time: No
[2024-10-31 15:23] LABS: Albumin Level 4.0 g/dl (3.5-5.0); Chloride 102 mmol/L (98-107)
[2024-10-31 15:24] LABS: Potassium 4.5 mmoL/L (3.5-5.1); Sodium 140 mmol/L (136-145)
[2024-10-31 15:26] LABS: Alanine Aminotransferase 32 U/L (12-78); Anion Gap 15.5 mEq/L (5-15); Aspartate Amino Transferase 33 U/L (14-36); Blood Urea Nitrogen 28 mg/dl (7-17); Carbon Dioxide 27 mmol/L (22.0-30.0); Creatinine Clearance Estimated 61 mL/min (50-200); Creatinine,Serum 0.80 mg/dl (0.52-1.04); Estimated Glomerular Filt Rate 70 ml/min (>60); GFR (African American) 85 ML/MIN (>60)
[2024-10-31 15:27] LABS: Albumin/Globulin Ratio 1.1 (1.1-1.8); Alkaline Phosphatase 116 U/L (38-126); Bilirubin,Total 0.5 mg/dl (0.2-1.3); Calcium 10.2 mg/dl (8.4-10.2); Globulin 3.8 g/dL (1.3-3.2); Glucose 112 mg/dl (74-100); Lipase 238 U/L (23-300); Magnesium 2.0 mg/dl (1.6-2.3); Total Protein,Serum 7.8 g/dl (6.3-8.2)
--- NOTE | 2024-10-31 15:33 | ECG_ITS ---
APPROVED REPORT Exam: Resting ECG HR:67 bpm ECG Measurements Heart Rate 67 AXES ID 149 P 35 QRSd 92 QRS 20 QT 398 T 22 QTc 413 Conclusion SINUS RHYTHM LEFT VENTRICULAR HYPERTROPHY AND ST-T CHANGE [VOLTAGE CRITERIA PLUS ST/T ABNORMALITY] ABNORMAL ECG INTERPRETATION BASED ON A DEFAULT AGE OF 40 YEARS UNCONFIRMED REPORT Electronically signed by : Jorgito Seaman, 11/01/2024 15:49:30
[2024-10-31] MEDS: IOPAMIDOL-370 (76%);100ML BOTTLE 75 ML IV (15:50)
[2024-10-31] MEDS: SODIUM CHLORIDE 0.9% 10ML SYR (RAD ONLY) 10 ML IV (15:50)
[2024-10-31 16:45] LABS: Hepatitis C Ab Qual. W/ RFX NEGATIVE (Negative)
[2024-10-31 17:01] LABS: Troponin I < 0.01 ng/ml (0.00-0.034)
[2024-10-31 18:56] LABS: Microscopic, Urine URINE MICROSCOPIC (MICROSCOPIC)
[2024-10-31 19:01] LABS: Bilirubin,Urine Negative (Negative); Color,Urine YELLOW (Yellow); Glucose,Urine (UA) Negative (Negative); Ketones,Urine Negative (Negative); Leukocyte Esterase,Urine 2+ (Negative); PH,Urine 6.0 (5.0-8.5); Protein,Urine Negative (Negative); Specific Gravity, Urine <= 1.005 (1.005-1.030); Urobilinogen,Urine 0.2 EU/dl (0.2)
[2024-10-31 19:29] LABS: Bacteria,Urine 4+ /lpf; Squamous Epithelial Cell,Urine Occasional #/hpf (0-5)
== END 2024-10-31 19:57 | disposition home or self-care (01) ==
PROVIDERS: Nurse Practitioner; Emergency Provider Student in an Organized Health Care Education/Training Program; PCP Nurse Practitioner Family
DX: N10 Acute pyelonephritis (principal); R10.12 Left upper quadrant pain; R11.0 Nausea; R94.31 Abnormal electrocardiogram [ECG] [EKG]
CPT/HCPCS: 71045; 74177; 80053; 81001; 83690; 83735; 84484; 85025; 86803; 87086; 87088; 87186; 87389; 87636; 93005; 96361; 96365; 96375; 99285; J0696; J2470; J7030; Q9967

== ENCOUNTER 2024-11-07 11:40 | Outpatient (CLI) | payer MEDICARE, OTHER, SELFPAY ==
[2024-11-07 12:02] LABS: Microscopic, Urine URINE MICROSCOPIC (MICROSCOPIC)
[2024-11-07 13:17] LABS: Bilirubin,Urine Negative (Negative); Color,Urine YELLOW (Yellow); Glucose,Urine (UA) Negative (Negative); Ketones,Urine Negative (Negative); Leukocyte Esterase,Urine Negative (Negative); PH,Urine 6.5 (5.0-8.5); Protein,Urine Negative (Negative); Specific Gravity, Urine 1.010 (1.005-1.030); Urobilinogen,Urine 0.2 EU/dl (0.2)
[2024-11-07 16:05] LABS: Transitional Epi Cells,Urine T #/lpf (0-3); WBC,Urine Occasional #/hpf (0-3)
--- OUTSIDE RECORDS SUMMARY | 2024-11-08 11:14 | XMS_ITS | Clinical Summary ---
Author Organization [facility] Address [address] [place] [address] Care Team Providers Care Senior Oracle Database Administrator Name Role Phone Gricelda Amaya APRN Primary Care Provider [phone] Allergies Active Allergy Reactions Criticality Noted Date [...] 50 MG tablet 2 Active HYDROcodone-kimber taminophen ([place]) 7.5-325 MG tablet 4 Active brimonidine-fab olol [...] Description 12/28/2024 1:00 PM EDT Office Visit [facility] [address] [place] [address] Kristen Estrada MD [address] [address] 01/30/2025 11:00 AM EST Office Visit [facility] [address] [place] [address] Lei Dickinson MD [address] [place] [address] Health Maintenance Due Date Last [...] Years (1 of 1 - PCV) 2001 [id number] Vaccine ( season) 2023 01/21/2023, 12/24/2021, 02/19/2021, [...] complete this topic Insurance [address] [place] [address] [place] [address] Care Teams Senior Oracle Database Administrator Relationship Specialty Start Date End Date Gricelda Amaay APRN [address] [place] [id number] PCP - General 12/11/21
--- OUTSIDE RECORDS SUMMARY | 2024-11-08 11:14 | XMS_ITS | Patient Health Record ---
Author Organization [facility] Address [address] [place] [address] [address] [place] [address] Care Team Providers Care Wire Bound Box Machine Operator Name Role Phone Jose -Filler Shredding Machine Loader Blue SHARMA Unavailable Unavailable Allergies Allergen (clinical drug ingredient) Drug/Non Drug Allergy documented on EMR Reaction Allergy Type Onset Date Status naproxen Unknown Drug Allergy Active Reason For Referral No Information Medications Medication SIG (Take, Route, Frequency, Duration) Notes Start Date End Date Status omeprazole 40 mg 1 cap(s) orally once a day Active TraMADol Hydrochloride 50 mg 2 tab(s) or ally every 8 hours; Duration: 90 days 02/15/2023 Active TraMADol Hydrochloride ER 100 mg/24 hours 1 cap(s) orally once a day; Duration: 30 day(s) Active RABEprazole 20 mg 1 tab(s) orally once a day; Duration: 30 day(s) 01/12/2022 Active methIMAzole 5 mg 1 tab(s) orally once a day Active hydrOXYzine hydrochloride 25 mg 1 tab(s) orally 4 times a day 01/12/2022 Active rosuvastatin 10 mg 1 tab(s) orally once a day; Duration: 30 day(s) 01/12/2022 Active amitriptyline 25 mg 1 tab(s) orally once a day (at bedtime); Duration: 30 day(s) 01/12/2022 Active bisoprolol 5 mg 1 tab(s) orally once a day; Duration: 30 day(s) 01/12/2022 Active fenofibrate 134 mg 1 cap(s) orally once a day; Duration: 30 day(s) 01/12/2022 Active losartan 25 mg 1 tab(s) orally once a day; Duration: 30 day(s) 01/12/2022 Active pramipexole 0.25 mg 1 tab(s) orally 3 ti mes a day; Duration: 30 day(s) 01/12/2022 Active latanoprost ophthalmic 0.005% 1 gtt in each eye once a day (in the evening) Active sertraline 50 mg 1 tab(s) orally once a day; Duration: 30 day(s) 01/12/2022 Active Viibryd 20 mg 1 tab(s) orally once a day Active ARIPiprazole 5 mg 1 tab(s) orally once a day Active Problems Problem Type SNOMED Code ICD Code Onset Dates Problem Status W/U Status Risk Notes Problem Solitary sacroiliitis (455019974) Sacroiliitis, not elsewhere classified (M46.1) Active confirmed Problem Lumbosacral spondylosis without myelopathy (24092163) Other spondylosis with radiculopathy, lumbar region (M47.26) Active confirmed Problem Cervical spondylosis without myelopathy (204951460) Spondylosis without myelopathy or radiculopathy, cervical region (M47.812) Active confirmed Problem Lumbosacral spondylosis without myelopathy (32051239) Spondylosis without myelopathy or radiculopathy, lumbar region (M47.816) Active confirmed Problem Cervical radiculopathy (64440500) Cervical disc disorder with radiculopathy, unspecified cervical region (M50.10) Active confirmed Problem Lumbar radiculopathy (821800153) Radiculopathy, lumbar region (M54.16) Active confirmed Problem Fibromyalgia (612660051) Fibromyalgia (M79.7) Active confirmed Problem Long-term current use of drug therapy (550763154) Other manager terminal (current) drug therapy (Z79.899) Active confirmed Plan Of Treatment Pending Test Test Name Order Date Xray: Lumbar Spine 01/14/2022 Insurance Providers Payer Name Payer Address Payer Phone Subscriber Number Group Number Insured Name Patient Relationship to Insured Coverage Start Date Coverage End [place] [address] [place] [address] [phone] [id number] Lee Ann Coates Self - patient is the insured 7 [employer] Life [address] [place] [address] [id number] Lee Ann Coates Self - patient is the insured 7 Medical (General) History Medical History History ICD Code depression fatty liver fibromyalgia mnaged by Dr. Garcia GERD managed by Dr. Amaya migraines high cholesterol managed by Dr. amaya HTN managed by Dr. Amaya osteoporosis thyroid disease Surgical History Surgery Date(Month/Year) Hysterctomy w/ NOSTROMO ICT 06/20/1981 Appendectomy w/ NOSTROMO ICT 2 Cholecystectomy w/ Dr.Earl Rangel at [facility] 2018 Knee replacement with [facility] Tubal Ligation w/ NOSTROMO ICT 982
== END 2024-11-07 23:59 | disposition home or self-care (01) ==
LOC: LAB.DROPOF 11-08 10:56
PROVIDERS: PCP Nurse Practitioner Family; Visit Provider Nurse Practitioner Family
DX: N39.0 Urinary tract infection, site not specified (principal); B96.20 Unspecified Escherichia coli [E. coli] as the cause of diseases classified elsewhere
CPT/HCPCS: 81001; 87086

== ENCOUNTER 2024-11-14 15:12 | Outpatient (CLI) | payer MEDICARE, OTHER, SELFPAY ==
--- OUTSIDE RECORDS SUMMARY | 2024-11-14 15:14 | XMS_ITS | Patient Health Record ---
Author Organization [facility] Address [address] [place] [address] [address] [place] [address] Care Team Providers Care Prior Authorization Nurse Name Role Phone Jose -Sales Superintendent Blue SHARMA Unavailable Unavailable Allergies Allergen (clinical [...] W/U Status Risk Notes Problem Solitary sacroiliitis (549044530) Sacroiliitis, not elsewhere classified (M46.1) Active confirmed Problem Lumbosacral spondylosis without myelopathy (01559918) Other spondylosis with radiculopathy, lumbar region (M47.26) Active confirmed Problem Cervical spondylosis without myelopathy (048946047) Spondylosis without myelopathy or radiculopathy, cervical region (M47.812) Active confirmed Problem Lumbosacral spondylosis without myelopathy (12631183) Spondylosis without myelopathy or radiculopathy, lumbar region (M47.816) Active confirmed Problem Cervical radiculopathy (50018589) Cervical disc disorder with radiculopathy, unspecified cervical region (M50.10) Active confirmed Problem Lumbar radiculopathy (462161920) Radiculopathy, lumbar region (M54.16) Active confirmed Problem Fibromyalgia (716673782) Fibromyalgia (M79.7) Active confirmed Problem Long-term current use of drug therapy (893885763) Other terminal supervisor (current) drug therapy (Z79.899) Active confirmed Plan Of Treatment Pending Test Test Name Order Date Xray: Lumbar Spine 01/14/2022 Insurance Providers Payer Name Payer Address Payer Phone Subscriber Number Group Number Insured Name Patient Relationship to Insured Coverage Start Date Coverage End Date [place] [address] [id number] Lee Ann Coates Self - patient is the insured 7 For Life [address] [place] [address] [id number] Lee Ann Coates Self - patient is the insured 7 Medical (General) History Medical History History ICD Code depression fatty liver fibromyalgia mnaged by Dr. Garcia GERD managed by Dr. Amaya migraines high cholesterol managed by Dr. amaya HTN managed by Dr. Amaya osteoporosis thyroid disease Surgical History Surgery Date(Month/Year) Hysterctomy w/ LOOKK 06/20/1981 Appendectomy w/ LOOKK 2 Cholecystectomy w/ Dr.Earl Rangel at [facility] 2018 Knee replacement with [facility] Tubal Ligation w/ LOOKK 982
--- OUTSIDE RECORDS SUMMARY | 2024-11-14 15:14 | XMS_ITS | Clinical Summary ---
Author Organization [facility] Address [address] [place] [address] Care Team Providers Care Fretted Instrument Maker Hand Name Role Phone Gricelda Amaya APRN Primary Care Provider [phone] Allergies Active Allergy Reactions Criticality Noted Date [...] 50 MG tablet 2 Active HYDROcodone-kimber taminophen ([place]) 7.5-325 MG tablet 4 Active brimonidine-fab olol [...] Description 12/28/2024 1:00 PM EDT Office Visit [facility] [address] [place] [address] Kristen Estrada MD [address] [address] 01/30/2025 11:00 AM EST Office Visit [facility] [address] [place] [address] Lei Dickinson MD [address] [place] [address] Health Maintenance Due Date Last [...] Years (1 of 1 - PCV) 2001 [id number] Vaccine ( season) 2023 01/21/2023, 12/24/2021, 02/19/2021, [...] complete this topic Insurance [address] [place] [address] [facility] [place] [address] Care Teams Fretted Instrument Maker Hand Relationship Specialty Start Date End Date Gricelda Amaya APRN [address] [place] [id number] PCP - General 12/11/21
--- NOTE | 2024-11-14 15:30 | MM_ITS ---
PROCEDURE INFORMATION: Exam: MG Bilateral Screening 3D Mammography Exam date and time: 11/14/2024 3:18 PM Age: 74 years old Clinical indication: Screening examination. TECHNIQUE: Imaging protocol: Bilateral Screening tomosynthesis and 2D mammography including computer-aided detection (CAD) when performed. COMPARISON: 1. MG [facility] MAMMO W/CAD BILAT 05/25/2023 2:05 PM 2. MG [facility] MAMMO W/CAD BILAT 04/05/2019 2:15 PM FINDINGS: MAMMOGRAPHY: Breast composition: There are scattered areas of fibroglandular density. Mass: None. Architectural distortion: None. Calcifications: No suspicious calcifications. Asymmetric density: None. Skin thickening: None. Axillary adenopathy: None. IMPRESSION: No mammographic evidence of malignancy. Annual screening is recommended unless otherwise clinically indicated. ASSESSMENT: BI-RADS Category 1: Negative.
== END 2024-11-14 23:59 | disposition home or self-care (01) ==
LOC: RAD 15:13
PROVIDERS: PCP Nurse Practitioner Family; Visit Provider Nurse Practitioner Family
DX: Z12.31 Encounter for screening mammogram for malignant neoplasm of breast (principal); R92.323 Mammographic fibroglandular density, bilateral breasts
CPT/HCPCS: 77063; 77067

== ENCOUNTER 2025-01-16 14:06 | Day surgery (SDC) | payer MEDICARE, OTHER, SELFPAY ==
[2025-01-16 14:08] VITALS: BP 131/70; PULSE 79; RESP 18; O2SAT 96; BMI 29.0
[2025-01-16 14:29] VITALS: BP 142/53; PULSE 66; RESP 18; O2SAT 94
[2025-01-16] MEDS: BUPIVACAINE 0.25% 10ML INJ 25 MG IJ (14:29)
[2025-01-16] MEDS: LIDOCAINE 1% 5ML PF VIAL 5 ML (14:29)
--- NOTE | 2025-01-16 14:34 | EXP.PAIN.PRO ---
Procedure Date: 01/16/25 Time: 14:40 Anesthesiologist:: Ludin Sands CRNA Complications:: None Pre-procedure Diagnosis:: Degenerative disc lumbar spine multilevels. Lumbar radiculopathy. Lumbar spondylosis. Multilevel lumbar facet arthropathy. Post-procedure Diagnosis:: Same. Indications for Procedure:: Patient is a very pleasant 74-year-old female who comes our clinic today for bilateral L4-5, L5-S1 medial branch blocks/facet injection. Patient describes low lumbar back pain that is constant, dull, sharp, stabbing. She rates her pain 8/10 today. She reports having difficulty with lumbar flexion, extension, left and right rotation. Procedure Details:: Informed consent was obtained and the risk and benefits of the procedure was explained to the patient. Patient was taken to the procedure room where noninvasive monitors were placed, including noninvasive blood pressure cuff as well as pulse oximeter. The area over the lumbar spine was cleansed using chlorhexidine as a cleansing solution. I anesthetized the skin and subcutaneous tissues with 1% Lidocaine. I placed 22-gauge spinal needles into the facet joint/ medial branches of L4-L5, and L5-S1 bilaterally. Needle placement was confirmed with fluoroscopy. After confirmation of needle placement, each site was injected with 1 mL of 1% lidocaine and 0.25 % Marcaine 1 mL. Patient tolerated the procedure without difficulty. There were no complications. Plan and Disposition:: Patient was discharged without incident.
[2025-01-16 14:49] VITALS: BP 122/69; PULSE 65; RESP 16; O2SAT 96
[2025-01-17 08:39] VITALS: BP 142/53; PULSE 66; RESP 18; O2SAT 94
== END 2025-01-16 14:49 | disposition home or self-care (01) ==
PROVIDERS: PCP Nurse Practitioner Family; Visit Provider Nurse Anesthetist, Certified Registered
DX: M47.816 Spondylosis without myelopathy or radiculopathy, lumbar region (principal); E78.5 Hyperlipidemia, unspecified; I10 Essential (primary) hypertension; K21.9 Gastro-esophageal reflux disease without esophagitis; H26.9 Unspecified cataract; F32.9 Major depressive disorder, single episode, unspecified; Z85.828 Personal history of other malignant neoplasm of skin; Z88.6 Allergy status to analgesic agent; Z79.899 Other long term (current) drug therapy
CPT/HCPCS: 64493; 64494; J0665; J2003